=== PATIENT | female | born 1940 | race Caucasian/White ===

== ENCOUNTER 2017-03-23 15:17 | Inpatient (IN) | payer MEDICARE ==
[2017-03-23] MEDS ORDERED: Levofloxacin/Dextrose 5%-Water 750 MG in Premix Bag 1 BAG IV SCH (17:45)
[2017-03-23] MEDS: Sodium Chloride 0.9% 1,000 ML IV SCH (17:59)
[2017-03-23] MEDS ORDERED: Ondansetron 4 MG Tab.DIS PO PRN (18:01)
[2017-03-23] MEDS ORDERED: Ondansetron 4 MG/2 ML SDV IV PRN (18:01)
[2017-03-23] MEDS ORDERED: Lactated Ringers 1,000 ML IV SCH (18:15)
[2017-03-23] MEDS: Formoterol/Mometasone 100-5 MCG 8.8 GM Inhaler IH SCH (20:20)
[2017-03-23] MEDS: Metoprolol Tartrate 50 MG Tab PO SCH (20:20)
[2017-03-23] MEDS: Albuterol/Ipratropium 3.0-0.5 MG/3 ML Neb Soln NEB SCH (20:21)
[2017-03-24] MEDS: Sodium Chloride 0.9% 1,000 ML IV SCH ×2 (05:15→15:29)
[2017-03-24] MEDS: Formoterol/Mometasone 100-5 MCG 8.8 GM Inhaler IH SCH ×2 (06:38→20:01)
[2017-03-24] MEDS: Aspirin 81 MG Tab.EC PO SCH (08:40)
[2017-03-24] MEDS: Digoxin 125 MCG Tab PO SCH (08:41)
[2017-03-24] MEDS: Metoprolol Tartrate 50 MG Tab PO SCH ×2 (08:41→20:02)
[2017-03-24] MEDS: Simvastatin 10 MG Tab PO SCH (08:42)
[2017-03-24] MEDS: Albuterol/Ipratropium 3.0-0.5 MG/3 ML Neb Soln NEB SCH ×4 (09:03→20:02)
--- NOTE | 2017-03-24 12:00 | CR ---
INDICATION: Cough. CHEST: PA and lateral views of the chest 03/23/2017 were compared with 2012, and 07/31/2011, now revealing bibasilar pleuroparenchymal changes, compatible with pneumonia and pleuritis, right greater than left. Findings remain compatible with COPD, with suggestion of some osteoporosis due to demineralization. The heart remains enlarged with post median sternotomy changes and tortuous calcified aorta. IMPRESSION: 1. Bibasilar pneumonia and pleuritis, right more severe than left. 2. COPD. 3. ASHD with cardiomegaly. MTDD
[2017-03-24] MEDS ORDERED: Warfarin Sliding Scale PO SCH (12:45)
--- NOTE | 2017-03-24 12:45 | PCM.HP ---
H&P History of Present Illness - General Date of Service: 03/24/17 Admit Problem/Dx: Admission Diagnosis/Problem Admission Diagnosis/Problem Pneumonia Source of Information: Patient, Old Records History Limitations: Reports: No Limitations - History of Present Illness Initial Comments - Free Text/Narative: patient is a 77-year-old female with a complex past medical history including bioprosthetic valve replacement, underlying lung disease, history of chronic aspiration, some type of injury to her throat that resulted in her not being able to eat for an extended period of time in the past requiring parenteral feeding. She felt fine last weekend but on Friday started to feel a little under the weather. By evening she was running a fever having chills and a cough which is productive for green yellow sputum. She felt short of breath which gradually worsened throughout the week. She developed some nausea and vomiting. No diarrhea. Finally last night she decided that things were going to get better on their own and presented to the emergency department where she was found to have a right lobe infiltrate consistent with pneumonia. She was started on Levaquin 750 mg IV and admitted to the hospital for further treatment. DENIES ANY PAIN WHEN ASKED AT PRESENT TIME Pain Score (Numeric/FACES): 0 - Related Data Allergies/Adverse Reactions: Allergies Allergy/AdvReac Type Severity Reaction Status Date / Time meperidine HCl [From Demerol] Allergy Tachycardia Verified 03/23/17 18:12 nystatin Allergy Rash Verified 03/23/17 18:12 propranolol HCl Allergy Tachycardia Verified 03/23/17 18:12 [From Inderal LA] Sulfa (Sulfonamide Allergy flu like Verified 03/23/17 18:12 Antibiotics) symptoms Home Medications: Home Meds ALPRAZolam [Alprazolam] 1 mg PO TID 10/13/13 [History] Digoxin [Digox] 125 mcg PO DAILY 10/13/13 [History] Metoprolol Tartrate [Lopressor] 50 mg PO Q12HR 10/13/13 [History] Simvastatin [Simvastatin] 5 mg PO DAILY 10/13/13 [History] Albuterol Sulfate [Proair Hfa] 2 puff IH Q4HR PRN 03/23/17 [History] Aspirin 81 mg PO DAILY 03/23/17 [History] Budesonide/Formoterol [Symbicort 80-4.5 MCG] 2 puff INH BID 03/23/17 [History] Potassium Chloride 8 meq PO DAILY 03/23/17 [History] Warfarin Sodium [Jantoven] 5 mg PO SUTUTHSA 03/23/17 [History] Warfarin [Coumadin] 2.5 mg PO MOWEFR 03/23/17 [History] Past Medical History HEENT History: Reports: Cataract Cardiovascular History: Reports: Arrhythmia, Blood Clots/VTE/DVT, High Cholesterol, Hypertension Respiratory History: Reports: Asthma, COPD [employer] History: Reports: Neurological History: Reports: Other (See Below) Other Neuro History: tremors Psychiatric History: Reports: Anxiety - Past Surgical History HEENT Surgical History: Reports: Cataract Surgery, Other (See Below) Other HEENT Surgeries/Procedures: surgery right ear Cardiovascular Surgical History: Reports: Coronary Artery Bypass GI Surgical History: Reports: Appendectomy, Cholecystectomy, Other (See Below) Other GI Surgeries/Procedures: Had feeding tube for 1 1/2 years after bypass surgery in 2012 due to inability to swallow Female Surgical History: Reports: Hysterectomy Social & Family History - Family History Family Medical History: Noncontributory - Tobacco Use Smoking Status *Q: Never Smoker Second Hand Smoke Exposure: No - Caffeine Use Caffeine Use: Reports: None - Alcohol Use Days Per Week of Alcohol Use: 0 - Recreational Drug Use Recreational Drug Use: No H&P Review of Systems - Review of Systems: Review Of Systems: See Below General: Reports: Fever, Chills, Malaise, Weakness, Fatigue, Decreased Appetite HEENT: Reports: No Symptoms Pulmonary: Reports: Shortness of Breath, Wheezing, Cough, Sputum (yellow green) Cardiovascular: Reports: Dyspnea on Exertion Gastrointestinal: Reports: Anorexia, Nausea, Vomiting Musculoskeletal: Reports: Other (body aches) Skin: Reports: No Symptoms Psychiatric: Reports: No Symptoms Neurological: Reports: No Symptoms Hematologic/Lymphatic: Reports: No Symptoms Immunologic: Reports: No Symptoms Exam - Exam Exam: See Below - Vital Signs Vital Signs: Last Vital Signs Temp 36.8 C 03/24/17 08:00 Pulse 65 03/24/17 12:30 Resp 24 H 03/24/17 08:00 BP 134/59 L 03/24/17 08:41 Pulse Ox 91 L 03/24/17 12:28 Weight: 71.577 kg - Exam General: Alert, Oriented, Cooperative HEENT: PERRLA, Pupils Equal, Pupils Reactive Neck: Supple Lungs: Decreased Breath Sounds, Rales, Rhonchi, Wheezing Cardiovascular: Regular Rate, Regular Rhythm, Normal S1, Normal S2 GI/Abdominal Exam: Normal Bowel Sounds, Soft, Non-Tender, No Distention Back Exam: Normal Inspection Extremities: No Pedal Edema Neuro Extensive - Mental Status: Alert, Oriented x3 Psychiatric: Alert - Patient Data Lab Results Last 24 hrs: Laboratory Results - last 24 hr 03/23/17 03/24/17 Range/Units 20:31 06:37 POC Glucose 112 96 (80-116) mg/dL Result Diagrams: 03/23/17 17:25 03/23/17 17:25 *Q Meaningful Use (ADM) - VTE *Q VTE Criteria *Q: - Stroke *Q Stroke Criteria *Q: - AMI *Q AMI Criteria *Q: - Problem List (1) CAP (community acquired pneumonia) SNOMED Code(s): 740275931 ICD Code: J18.9 - PNEUMONIA, UNSPECIFIED ORGANISM Status: Acute Current Visit: Yes Problem Details: patient with history of aspiration is at higher risk for aspiration organisms. I agree with the choice of Levaquin at pseudomonal doses given her underlying lung disease. I think this is also a good choice for aspiration coverage. Will add prednisone 40 mg daily. Although it does increase risk of tendinitis and tendon rupture, I think with her history of asthma and COPD she should also be on a steroid. Qualifiers: Laterality: right Lung location: middle lobe of lung Qualified Code(s): J18.1 - Lobar pneumonia, unspecified organism (2) Chronic atrial fibrillation SNOMED Code(s): 074429286 ICD Code: I48.2 - CHRONIC ATRIAL FIBRILLATION Status: Chronic Current Visit: Yes Problem Details: patient currently rate controlled and anticoagulated. Continue current medications. Pharmacy to dose warfarin. (3) Hypertension SNOMED Code(s): 81068781 ICD Code: I10 - ESSENTIAL (PRIMARY) HYPERTENSION Status: Chronic Current Visit: Yes Problem Details: currently well-controlled. Continue to monitor. Continue home meds. (4) History of mitral valve replacement with bioprosthetic valve SNOMED Code(s): 999039337, 2130538819825 ICD Code: Z95.3 - PRESENCE OF XENOGENIC HEART VALVE Status: Acute Current Visit: Yes (5) COPD (chronic obstructive pulmonary disease) SNOMED Code(s): 62910341 ICD Code: J44.9 - CHRONIC OBSTRUCTIVE PULMONARY DISEASE, UNSPECIFIED Status : Acute Current Visit: Yes Problem Details: see above. Prednisone daily. Nebs. (6) Asthma SNOMED Code(s): 444504969 ICD Code: J45.909 - UNSPECIFIED ASTHMA, UNCOMPLICATED Status: Acute Current Visit: Yes Problem Details: see above. 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 Pharmacy to follow. If not therapeutic by tomorrow we can bridge with Lovenox because of higher risk for DVT. Problem List Initiated/Reviewed/Updated: Yes Orders Last 24hrs: Active Orders 24 hr Category Date Time Status CULTURE SPUTUM + SMEAR [RM] Routine Lab 03/23/17 16:50 Results Albuterol [Ventolin HFA] Med 03/23/17 18:08 Active 0 gm INH Q4H PRN Aspirin [Halfprin] Med 03/24/17 09:00 Active 81 mg PO DAILY Digoxin [Lanoxin] Med 03/24/17 09:00 Active 125 mcg PO DAILY Metoprolol Tartrate [Lopressor] Med 03/23/17 21:00 Active 50 mg PO BID Mometasone/Formoterol [Dulera 100-5 MCG] Med 03/24/17 08:01 Active 2 puff IH BIDRT Potassium Chloride [Klor-Con 8] Med 03/24/17 09:00 Active 8 meq PO DAILY Simvastatin [Zocor] Med 03/24/17 09:00 Active 5 mg PO DAILY Warfarin Sliding Scale [Coumadin Sliding Scale] Med 03/24/17 12:45 Pending See Dose Instructions PO ASDIRECTED Warfarin [Coumadin] Med 03/24/17 16:00 Active 5 mg PO 1600 Medication Orders Acetaminophen (Tylenol) 650 mg PO Q4H PRN PRN Reason: Pain (Mild 1-3)/fever Albuterol (Ventolin Hfa) 0 gm INH Q4H PRN PRN Reason: Wheezing Albuterol/Ipratropium (Duoneb 3.0-0.5 Mg/3 Ml) 3 ml NEB QIDRT [facility] Last Admin: 03/24/17 12:27 Dose: 3 ml Admin: 03/24/17 09:03 Dose: 3 ml Admin: 03/23/17 20:21 Dose: 3 ml Aspirin (Halfprin) 81 mg PO DAILY [facility] Last Admin: 03/24/17 08:40 Dose: 81 mg Digoxin (Lanoxin) 125 mcg PO DAILY [facility] Last Admin: 03/24/17 08:41 Dose: 125 mcg Levofloxacin/Dextrose 750 mg/ (Premix) 150 mls @ 100 mls/hr IV Q48H [facility] Last Admin: 03/23/17 18:03 Dose: 100 mls/hr Sodium Chloride (Normal Saline) 1,000 mls @ 100 mls/hr IV ASDIRECTED [facility] Last Admin: 03/24/17 05:15 Dose: 100 mls/hr Infusion: 03/24/17 03:59 Dose: 100 mls/hr Admin: 03/23/17 17:59 Dose: 100 mls/hr Metoprolol Tartrate (Lopressor) 50 mg PO BID [facility] Last Admin: 03/24/17 08:41 Dose: 50 mg Admin: 03/23/17 20:20 Dose: 50 mg Mometasone Furoate/Formoterol Fumar (Dulera 100-5 Mcg) 2 puff IH BIDRT [facility] Ondansetron HCl (Zofran Odt) 4 mg PO Q4H PRN PRN Reason: nausea, able to take PO Ondansetron HCl (Zofran) 4 mg IV Q4H PRN PRN Reason: Nausea/Vomiting Potassium Chloride (Klor-Con 8) 8 meq PO DAILY [facility] Senna/Docusate Sodium (Senna Plus) 1 tab PO BID PRN PRN Reason: Constipation Simvastatin (Zocor) 5 mg PO DAILY [facility] Last Admin: 03/24/17 08:42 Dose: 5 mg Sodium Chloride (Saline Flush) 10 ml FLUSH ASDIRECTED PRN PRN Reason: Keep Vein Open Warfarin Sodium (Coumadin) 5 mg PO 1600 [facility] Stop: 03/24/17 16:01 Warfarin Sodium (Coumadin Sliding Scale) 0 each PO ASDIRECTED [facility] Assessment/Plan Comment:: Discussed CODE STATUS with the patient and the patient is a full code. She does have a living will and her son would be her decision maker in case she was unable to communicate.
--- NOTE | 2017-03-24 14:03 | ER ---
DATE SEEN: 03/23/2017 TIME SEEN: The patient was seen at 1730 hours. HISTORY OF PRESENT ILLNESS: There was a concern about pneumonia. She is 10/10 "sick". She has had decreased activity. She is short of breath and has been coughing. Mild dyspnea on exertion. She notes at 20 feet she has dyspnea. No chest pain or irregular heartbeat. No abdominal discomfort, nausea, vomiting, diarrhea, constipation, or change in bowels. Has had a yellow productive cough for the last 4 days. She is not dizzy and not lightheaded, and has not fallen down. She lives at home. She is status post CABG. PAST MEDICAL HISTORY: COPD, status post CABG, three-vessel disease, asthma, DVT history, mitral valvuloplasty, cholecystectomy, MARY-BSO, cataracts removed. REVIEW OF SYSTEMS: Negative, except for noted above. She has some urinary incontinence. Muscle strength is good. She feels weaker than usual. No history of falls. No headaches. No neck stiffness. No compromise in vision. She does wear glasses. No back pain, but she has mild muscle/joint aches. PHYSICAL EXAMINATION: VITAL SIGNS: Blood pressure 120/54, heart rate 93, respirations 16, oxygen saturation 98% on room air, and temperature is 37.1 degrees centigrade. HEENT: PERRLA intact. Pharynx without abnormality. NECK: No thyromegaly or masses. No cervical adenopathy. HEART: S1, S2. There is no murmur. Sternotomy incision noted. It is healed and nontender. LUNGS: There are rales at the bases. Bilateral posteriorly and anteriorly. ABDOMEN: Soft. No guarding. No abdominal discomfort. EXTREMITIES: Nontender. No edema noted in lower extremities. Deep tendon reflexes hypoactive, but present in upper and lower extremities. NEUROLOGIC: Cranial nerves 2 through 12 intact. Oriented. Slight decreased hearing. Thought process is appropriate. LABORATORY FINDINGS: White count 11,200, PMNs 72, lymphocytes 10, monos 14, hemoglobin 12.9, and platelets 277,000. Sodium low at 129, chloride low at 93, potassium low normal at 3.5, CO2 of 26. BUN creatinine ratio 26, latter suggesting dehydration. Calcium slightly low at 8.1, but no abnormality of albumin to result in a corrected calcium. INR is 1.68 and PT is 17.2. Normal PT is up to 8.7-11.1. EKG was not performed. IMAGING: Chest x-ray, infiltrate suggested. Also, she had bibasilar findings. ASSESSMENT: 1. Pneumonia. 2. Etiologies for pneumonia indeterminate, does not appear she has an infiltrate. It is possible it could be atelectasis. 3. Hyponatremia and hypochloremia. The patient is on a salt restricted diet, very careful intake of salt. She also is taking potassium supplements, perhaps, not enough, 8 mEq daily. She is on anticoagulants for previous history of DVTs. PLAN: 1. Treat infection, pneumonia with Levaquin 750 mg every other day for a total of 5 doses. 2. She has significant chronic obstructive lung disease. She utilizes DuoNebs and/or albuterol nebs. 3. Admission. 4. Continue with anticoagulation medicine - clopidogrel - for her three-vessel CABG surgery. 5. The hyponatremia and hypochloremia are somewhat bothersome. The patient can add salt to her diet. She was somewhat dry, had received 1000 mL of lactated Ringer's. She did not have any signs of congestive heart failure when she received this. She did not get better after DuoNeb in ED and, because of COPD, was admitted. /[id number] ADELA/ROSANA SPENCER
[2017-03-24] MEDS: Potassium Chloride 8 MEQ Tab.ER PO SCH (14:23)
[2017-03-24] MEDS: Acetaminophen 325 MG Tab PO PRN (15:03)
[2017-03-24] MEDS ORDERED: Warfarin 5 MG Tab PO SCH ×2 (16:00)
[2017-03-24] MEDS: predniSONE 20 MG Tab PO SCH (16:10)
[2017-03-24] MEDS ORDERED: Warfarin 2.5 MG Tab PO SCH (18:08)
[2017-03-25] MEDS: Sodium Chloride 0.9% 1,000 ML IV SCH ×2 (01:10→20:10)
[2017-03-25] MEDS: Albuterol 8 GM Inhaler INH PRN (03:15)
[2017-03-25] MEDS: Albuterol/Ipratropium 3.0-0.5 MG/3 ML Neb Soln NEB SCH ×4 (07:08→20:16)
[2017-03-25] MEDS: predniSONE 20 MG Tab PO SCH (08:29)
[2017-03-25] MEDS: Potassium Chloride 8 MEQ Tab.ER PO SCH (08:30)
[2017-03-25] MEDS: Aspirin 81 MG Tab.EC PO SCH (08:30)
[2017-03-25] MEDS: Digoxin 125 MCG Tab PO SCH (08:30)
[2017-03-25] MEDS: Simvastatin 10 MG Tab PO SCH (08:30)
[2017-03-25] MEDS: Metoprolol Tartrate 50 MG Tab PO SCH ×2 (08:31→20:20)
[2017-03-25] MEDS ORDERED: Levofloxacin 500 MG Tab PO SCH (09:00)
[2017-03-25] MEDS: Formoterol/Mometasone 100-5 MCG 8.8 GM Inhaler IH SCH ×2 (11:02→20:17)
[2017-03-25] MEDS: Saccharomyces Boulardii (Probiotic) 250 MG Cap PO SCH ×2 (11:11→20:18)
--- NOTE | 2017-03-25 12:37 | PCM.PN ---
- General Info Date of Service: 03/25/17 Subjective Update: Patient is a 77-year-old female currently on hospital day #2 for community- acquired pneumonia. Initial sputum has grown out gram-negative rods. Patient is on Levaquin which covers pseudomonas and add pseudomonal dosing. Liver enzymes were up just slightly today. She had received a dose of prednisone last night and again this morning but tells me in the past she's had problems with prednisone and isn't sure if it was related to her liver. She was wondering if it would be all right to stop that. She continues on room air and vital signs are stable. She's had no chest pain, continues to be short of breath with activity. She mentions a groin rash today to me that she's had for few weeks. His red and itchy in the left groin. She's wondering if I can take a look at that today. Functional Status: Reports: Pain Controlled, Tolerating Diet, Ambulating, Urinating - Patient Data Vitals - Most Recent: Last Vital Signs Temp 36.5 C 03/25/17 07:40 Pulse 94 03/25/17 09:29 Resp 18 03/25/17 07:40 BP 156/83 H 03/25/17 08:31 Pulse Ox 94 L 03/25/17 09:29 Weight - Most Recent: 71.577 kg I&O - Last 24 Hours: Intake & Output 03/24/17 03/25/17 03/25/17 22:59 06:59 14:59 Intake Total 789 669 Balance 789 669 Lab Results Last 24 Hours: Laboratory Results - last 24 hr 03/24/17 03/24/17 03/25/17 Range/Units 14:22 17:26 06:30 WBC (4.5-12.0) X10-3/uL RBC (3.23-5.20) x10(6)uL Hgb (11.5-15.5) g/dL Hct (30.0-51.3) % MCV (80-96) fL MCH (27.7-33.6) pg MCHC (32.2-35.4) g/dL RDW (11.5-15.5) % Plt Count (125-369) X10(3)uL MPV (7.4-10.4) fL Neut % (Auto) (46-82) % Lymph % (Auto) (13-37) % Jessamine % (Auto) (4-12) % Eos % (Auto) (1.0-5.0) % Baso % (Auto) (0-2) % Neut # (Auto) (1.6-8.3) # Lymph # (Auto) (0.6-5.0) # Jessamine # (Auto) (0.0-1.3) # Eos # (Auto) (0.0-0.8) # Baso # (Auto) (0.0-0.2) # PT (8.7-11.1) INR (0.89-1.13) Sodium 139 D (135-145) mmol/L Potassium 3.6 (3.5-5.3) mmol/L Chloride 107 D (100-110) mmol/L Carbon Dioxide 23 (23-29) mmol/L BUN 15 (8-23) mg/dL Creatinine 0.7 (0.6-1.3) mg/dL Est Cr Clr Drug Dosing 59.96 mL/min Estimated GFR (MDRD) > 60 (>60) BUN/Creatinine Ratio 21.4 H (9-20) Glucose 130 H (80-116) mg/dL POC Glucose 100 107 (80-116) mg/dL Calcium 7.9 L (8.6-10.2) mg/dL Total Bilirubin 0.3 (0.1-1.3) mg/dL AST 49 H D (5-27) IU/L ALT 50 H D (14-26) IU/L Alkaline Phosphatase 99 (56-112) IU/L Total Protein 6.4 (6.0-8.0) g/dL Albumin 2.3 L (3.2-4.6) g/dL Globulin 4.1 g/dL Albumin/Globulin Ratio 0.6 03/25/17 03/25/17 Range/Units 06:30 09:00 WBC 6.7 (4.5-12.0) X10-3/uL RBC 3.68 (3.23-5.20) x10(6)uL Hgb 10.6 L (11.5-15.5) g/dL Hct 31.7 (30.0-51.3) % MCV 86.2 (80-96) fL MCH 28.8 (27.7-33.6) pg MCHC 33.4 (32.2-35.4) g/dL RDW 14.2 (11.5-15.5) % Plt Count 237 (125-369) X10(3)uL MPV 8.5 (7.4-10.4) fL Neut % (Auto) 76.6 (46-82) % Lymph % (Auto) 11.9 L (13-37) % Jessamine % (Auto) 11.3 (4-12) % Eos % (Auto) 0 L (1.0-5.0) % Baso % (Auto) 0 (0-2) % Neut # (Auto) 5.1 (1.6-8.3) # Lymph # (Auto) 0.8 (0.6-5.0) # Jessamine # (Auto) 0.8 (0.0-1.3) # Eos # (Auto) 0.0 (0.0-0.8) # Baso # (Auto) 0.0 (0.0-0.2) # PT 27.2 H (8.7-11.1) INR 2.64 H (0.89-1.13) Sodium (135-145) mmol/L Potassium (3.5-5.3) mmol/L Chloride (100-110) mmol/L Carbon Dioxide (23-29) mmol/L BUN (8-23) mg/dL Creatinine (0.6-1.3) mg/dL Est Cr Clr Drug Dosing mL/min Estimated GFR (MDRD) (>60) BUN/Creatinine Ratio (9-20) Glucose (80-116) mg/dL POC Glucose (80-116) mg/dL Calcium (8.6-10.2) mg/dL Total Bilirubin (0.1-1.3) mg/dL AST (5-27) IU/L ALT (14-26) IU/L Alkaline Phosphatase (56-112) IU/L Total Protein (6.0-8.0) g/dL Albumin (3.2-4.6) g/dL Globulin g/dL Albumin/Globulin Ratio Med Orders - Current: Current Medications Acetaminophen (Tylenol) 650 mg PO Q4H PRN PRN Reason: Pain (Mild 1-3)/fever Last Admin: 03/24/17 15:03 Dose: 650 mg Albuterol (Ventolin Hfa) 0 gm INH Q4H PRN PRN Reason: Wheezing Last Admin: 03/25/17 03:15 Dose: 2 puff Albuterol/Ipratropium (Duoneb 3.0-0.5 Mg/3 Ml) 3 ml NEB QIDRT [facility] Last Admin: 03/25/17 11:06 Dose: 3 ml Aspirin (Halfprin) 81 mg PO DAILY [facility] Last Admin: 03/25/17 08:30 Dose: 81 mg Digoxin (Lanoxin) 125 mcg PO DAILY [facility] Last Admin: 03/25/17 08:30 Dose: 125 mcg Sodium Chloride (Normal Saline) 1,000 mls @ 100 mls/hr IV ASDIRECTED [facility] Last Admin: 03/25/17 01:10 Dose: 100 mls/hr Levofloxacin 500 mg/ (Levofloxacin 250 mg) 750 mg PO Q24H [facility] Last Admin: 03/25/17 09:44 Dose: 750 mg Metoprolol Tartrate (Lopressor) 50 mg PO BID [facility] Last Admin: 03/25/17 08:31 Dose: 50 mg Mometasone Furoate/Formoterol Fumar (Dulera 100-5 Mcg) 2 puff IH BIDRT [facility] Last Admin: 03/25/17 11:02 Dose: 2 puff Ondansetron HCl (Zofran Odt) 4 mg PO Q4H PRN PRN Reason: nausea, able to take PO Ondansetron HCl (Zofran) 4 mg IV Q4H PRN PRN Reason: Nausea/Vomiting Potassium Chloride (Klor-Con 8) 8 meq PO DAILY [facility] Last Admin: 03/25/17 08:30 Dose: 8 meq Prednisone (Prednisone) 40 mg PO WITHBREAKFAST [facility] Last Admin: 03/25/17 08:29 Dose: 40 mg Saccharomyces Boulardii (Florastor) 250 mg PO BID [facility] Last Admin: 03/25/17 11:11 Dose: 250 mg Senna/Docusate Sodium (Senna Plus) 1 tab PO BID PRN PRN Reason: Constipation Simvastatin (Zocor) 5 mg PO DAILY [facility] Last Admin: 03/25/17 08:30 Dose: 5 mg Sodium Chloride (Saline Flush) 10 ml FLUSH ASDIRECTED PRN PRN Reason: Keep Vein Open Warfarin Sodium (Coumadin Sliding Scale) 0 each PO ASDIRECTED [facility] Warfarin Sodium (Coumadin) 2.5 mg PO 1600 [facility] Stop: 03/25/17 16:01 Discontinued Medications Levofloxacin/Dextrose 750 mg/ (Premix) 150 mls @ 100 mls/hr IV Q48H [facility] Last Admin: 03/23/17 18:03 Dose: 100 mls/hr Lactated Ringer's (Ringers, Lactated) 1,000 mls @ 125 mls/hr IV .BOLUS [facility] Stop: 03/24/17 02:00 Mometasone Furoate/Formoterol Fumar (Dulera 100-5 Mcg) 2 puff IH BIDRT [facility] Last Admin: 03/24/17 06:38 Dose: 2 puff Warfarin Sodium (Coumadin) 5 mg PO DAILY@1600 [facility] Warfarin Sodium (Coumadin) 5 mg PO 1600 [facility] Stop: 03/24/17 16:01 Last Admin: 03/24/17 16:16 Dose: 5 mg - Exam General: Alert, Oriented, Cooperative, No Acute Distress HEENT: Pupils Equal, Pupils Reactive Neck: Supple Lungs: Clear to Auscultation (much clearer than yesterday, no wheezing or rhonchi, no rales.), Normal Respiratory Effort Cardiovascular: Regular Rate, Regular Rhythm, No Murmurs (Female) Exam: Other (Slightly Erythematous in the left groin fold.) Back Exam: Normal Inspection Extremities: Normal Inspection, Pedal Edema (Trace pedal edema) Skin: Warm, Dry, Intact Psy/Mental Status: Alert, Normal Affect, Normal Mood - Problem List & Annotations (1) CAP (community acquired pneumonia) SNOMED Code(s): 043198547 Code(s): J18.9 - PNEUMONIA, UNSPECIFIED ORGANISM Status: Acute Current Visit: Yes Qualifiers: Laterality: right Lung location: middle lobe of lung Qualified Code(s): J18.1 - Lobar pneumonia, unspecified organism Annotation/Comment:: Has grown gram negative rods, concerning for pseudomonas which is covered by levaquin. Per patient request will stop prednisone as she is on room air. Will need to stay in hospital until we get culture ID and sensitivity on the sputum and rule out bacteremia. Suggesting haemophilus which is covered by levaquin as well. Will not de-escalate until definite ID. (2) Chronic atrial fibrillation SNOMED Code(s): 351801569 Code(s): I48.2 - CHRONIC ATRIAL FIBRILLATION Status: Chronic Current Visit: Yes Annotation/Comment:: patient currently rate controlled and anticoagulated. Continue current medications. Pharmacy to dose warfarin. (3) Hypertension SNOMED Code(s): 45306969 Code(s): I10 - ESSENTIAL (PRIMARY) HYPERTENSION Status: Chronic Current Visit: Yes Annotation/Comment:: currently borderline control. Continue to monitor. Continue home meds. (4) History of mitral valve replacement with bioprosthetic valve SNOMED Code(s): 601316507, 3433759497617 Code(s): Z95.3 - PRESENCE OF XENOGENIC HEART VALVE Status: Acute Current Visit: Yes (5) COPD (chronic obstructive pulmonary disease) SNOMED Code(s): 58439866 Code(s): J44.9 - CHRONIC OBSTRUCTIVE PULMONARY DISEASE, UNSPECIFIED Status : Acute Current Visit: Yes Annotation/Comment:: see above. Nebs. (6) Asthma SNOMED Code(s): 350501898 Code(s): J45.909 - UNSPECIFIED ASTHMA, UNCOMPLICATED Status: Acute Current Visit: Yes Annotation/Comment:: see above. 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 Pharmacy to follow. Therapeutic today. (8) Candidiasis SNOMED Code(s): 79451805 Code(s): B37.9 - CANDIDIASIS, UNSPECIFIED Status: Acute Current Visit: Yes Annotation/Comment:: Of groin fold. Use antifungal topically until gone. - Problem List Review Problem List Initiated/Reviewed/Updated: Yes - My Orders Last 24 Hours: My Active Orders 03/24/17 12:45 Warfarin Sliding Scale [Coumadin Sliding Scale] See Dose Instructions PO ASDIRECTED 03/24/17 15:15 predniSONE 40 mg PO WITHBREAKFAST 03/25/17 08:45 Levofloxacin [Levaquin] 750 mg PO Q24H 03/25/17 10:30 Saccharomyces Boulardii [Florastor] 250 mg PO BID 03/25/17 16:00 Warfarin [Coumadin] 2.5 mg PO 1600 03/26/17 05:11 COMPREHENSIVE METABOLIC PN,CMP [CHEM] AM HEMOGLOBIN [HEME] AM 03/26/17 08:44 INR,PT,PROTHROMBIN TIME [COAG] DAILY 03/27/17 08:44 INR,PT,PROTHROMBIN TIME [COAG] DAILY 03/28/17 08:44 INR,PT,PROTHROMBIN TIME [COAG] DAILY 03/29/17 08:44 INR,PT,PROTHROMBIN TIME [COAG] DAILY 03/30/17 08:44 INR,PT,PROTHROMBIN TIME [COAG] DAILY 03/31/17 08:44 INR,PT,PROTHROMBIN TIME [COAG] DAILY - Plan Plan:: Discussed CODE STATUS with the patient and the patient is a full code. She does have a living will and her son would be her decision maker in case she was unable to communicate.
[2017-03-25] MEDS ORDERED: Warfarin 2.5 MG Tab PO SCH (16:00)
[2017-03-25] MEDS: Sodium Chloride 0.9% 10 ML Syringe FLUSH PRN (20:00)
[2017-03-25] MEDS: Clotrimazole 1% Crm 15 GM Tube TOP SCH (20:24)
[2017-03-25] MEDS ORDERED: ALPRAZolam 1 MG Tab PO SCH (21:15)
[2017-03-26] MEDS: Albuterol 8 GM Inhaler INH PRN (02:10)
[2017-03-26] MEDS: Acetaminophen 325 MG Tab PO PRN (02:13)
[2017-03-26] MEDS: Sodium Chloride 0.9% 1,000 ML IV SCH (06:38)
[2017-03-26] MEDS: Formoterol/Mometasone 100-5 MCG 8.8 GM Inhaler IH SCH ×2 (06:39→20:57)
[2017-03-26] MEDS: Albuterol/Ipratropium 3.0-0.5 MG/3 ML Neb Soln NEB SCH ×2 (07:05→10:40)
[2017-03-26] MEDS ORDERED: ALPRAZolam 1 MG Tab PO SCH (09:00)
[2017-03-26] MEDS: Clotrimazole 1% Crm 15 GM Tube TOP SCH ×2 (09:04→20:56)
[2017-03-26] MEDS: Saccharomyces Boulardii (Probiotic) 250 MG Cap PO SCH ×2 (09:04→20:58)
[2017-03-26] MEDS: Potassium Chloride 8 MEQ Tab.ER PO SCH (09:05)
[2017-03-26] MEDS: Aspirin 81 MG Tab.EC PO SCH (09:05)
[2017-03-26] MEDS: Digoxin 125 MCG Tab PO SCH (09:05)
[2017-03-26] MEDS: Metoprolol Tartrate 50 MG Tab PO SCH (09:06)
[2017-03-26] MEDS: Simvastatin 10 MG Tab PO SCH (09:06)
[2017-03-26] MEDS ORDERED: Metoprolol Tartrate 5 MG/5 ML SDV IVPUSH ONE ×2 (12:13→12:45)
[2017-03-26] MEDS ORDERED: LORazepam 2 MG/ML MDV IVPUSH ONE (12:26)
[2017-03-26] MEDS ORDERED: Nitroglycerin/D5W 25 MG/250 ML BOTTLE IV SCH (12:45)
[2017-03-26] MEDS ORDERED: Aspirin 81 MG Tab.Chew PO ONE (12:45)
[2017-03-26] MEDS: Sodium Chloride 0.9% 10 ML Syringe FLUSH PRN ×5 (13:01→21:22)
[2017-03-26] MEDS: LORazepam 2 MG/ML MDV IVPUSH SCH ×2 (14:05→21:29)
--- NOTE | 2017-03-26 14:13 | CR ---
INDICATION: Chest pain, shortness of breath. CHEST: An AP upright portable view of the chest 03/26/2017 was compared with and 10/30/2012, again revealing evidence of median sternotomy. The heart is enlarged and possibly increased in size, compared with the recent examination which, however, was a PA study. The aorta is tortuous and calcified. Upper lung field pulmonary vasculature is prominent and interstitial markings are also prominent, compatible with CHF with interstitial lung edema. The bilateral pleural effusions and parenchymal changes at the lung bases may be at least partly on that basis. However, pneumonia and pleuritis, more severe on the right, is also a possibility. This should be correlated clinically. Overlying EKG leads are noted. IMPRESSION: 1. ASHD, cardiomegaly, post median sternotomy with CHF and interstitial lung edema and possibly bilateral pleural effusions. 2. Pleuroparenchymal changes at both lung bases make it difficult to exclude pneumonia and pleuritis, more prominent on the right than left. MTDD
--- NOTE | 2017-03-26 18:32 | PCM.PN ---
- General Info Date of Service: 03/26/17 Subjective Update: Patient is a 77-year-old female currently on hospital day #4 for community acquired pneumonia with sputum positive for gram-negative rods. Culture this evening came back positive for Haemophilus influenza with sensitivities pending. Patient is currently on Levaquin 750 mg by mouth every 24 hours. Patient had an eventful day. She normally is on Xanax at home 3 times a day and this had not been restarted when she was admitted to the hospital. Last night she went through some benzodiazepine withdrawal and was given her Xanax. She got it again this morning but was still very anxious, tremulous, and her blood pressure and pulse were quite high. About noon the patient's blood pressure was in the 180s to 190s systolic and on exam her heart rate was in the 1 teens to 120s. She was extremely anxious. On further questioning she acknowledged that she had had an episode of chest pressure in the morning and the decision was made to treat this as a hypertensive urgency likely secondary to benzodiazepine withdrawal and transfer her to the ICU. The patient was given a 0.5 mg dose of IV Ativan, 5 mg IV metoprolol 2, and started on a nitroglycerin drip. Initial EKG showed atrial fibrillation with rapid ventricular response and T-wave inversion in leads 1 and 2, 3, aVL and aVF. She also had ST depression in V2 through V5 suggestive of ischemia. With metoprolol and nitroglycerin all these abnormalities resolved. The patient was then asymptomatic. Initial troponin was 0.01, follow-up troponin was 0.03. Discussed at length with the patient and her son that it's likely an increase in troponin at this point would represent demand ischemia and would not mandate further evaluation with cardiac catheterization. The patient currently is resting comfortably. Heart rate is in the high 90s to low 100 range. Blood pressure is in the 130s to 140s on 10 g of nitroglycerin IV. Patient has no chest pain, no shortness of breath, no nausea, no vomiting. Of note she did have 2 episodes of vomiting during her peak blood pressures and also became hypoxic into the high 80s and needed supplemental oxygen. Functional Status: Reports: Pain Controlled, Tolerating Diet - Patient Data Vitals - Most Recent: Last Vital Signs Temp 36.4 C 03/26/17 16:00 Pulse 103 H 03/26/17 16:00 Resp 28 H 03/26/17 16:00 BP 122/93 H 03/26/17 16:00 Pulse Ox 92 L 03/26/17 16:00 Weight - Most Recent: 71.577 kg I&O - Last 24 Hours: Intake & Output 03/26/17 03/26/17 03/26/17 06:59 14:59 22:59 Intake Total 847 30 Output Total 100 Balance 847 30 -100 Lab Results Last 24 Hours: Laboratory Results - last 24 hr 03/26/17 03/26/17 03/26/17 Range/Units 06:15 06:15 06:15 WBC (4.5-12.0) X10-3/uL RBC (3.23-5.20) x10(6)uL Hgb 10.8 L (11.5-15.5) g/dL Hct (30.0-51.3) % MCV (80-96) fL MCH (27.7-33.6) pg MCHC (32.2-35.4) g/dL RDW (11.5-15.5) % Plt Count (125-369) X10(3)uL PT 37.2 H* (8.7-11.1) INR 3.59 H (0.89-1.13) Sodium 141 (135-145) mmol/L Potassium 3.3 L (3.5-5.3) mmol/L Chloride 107 (100-110) mmol/L Carbon Dioxide 24 (23-29) mmol/L BUN 16 (8-23) mg/dL Creatinine 0.8 (0.6-1.3) mg/dL Est Cr Clr Drug Dosing 52.47 mL/min Estimated GFR (MDRD) > 60 (>60) BUN/Creatinine Ratio 20.0 (9-20) Glucose 115 (80-116) mg/dL Calcium 8.3 L (8.6-10.2) mg/dL Total Bilirubin 0.3 (0.1-1.3) mg/dL AST 50 H (5-27) IU/L ALT 58 H D (14-26) IU/L Alkaline Phosphatase 95 (56-112) IU/L Troponin I (0.02-0.06) NG/ML Total Protein 6.4 (6.0-8.0) g/dL Albumin 2.4 L (3.2-4.6) g/dL Globulin 4.0 g/dL Albumin/Globulin Ratio 0.6 03/26/17 03/26/17 03/26/17 Range/Units 12:35 12:35 12:35 WBC 14.4 H (4.5-12.0) X10-3/uL RBC 4.36 (3.23-5.20) x10(6)uL Hgb 12.1 (11.5-15.5) g/dL Hct 37.4 (30.0-51.3) % MCV 86.0 (80-96) fL MCH 27.8 (27.7-33.6) pg MCHC 32.3 (32.2-35.4) g/dL RDW 14.4 (11.5-15.5) % Plt Count 355 (125-369) X10(3)uL PT (8.7-11.1) INR (0.89-1.13) Sodium 140 (135-145) mmol/L Potassium 3.3 L (3.5-5.3) mmol/L Chloride 108 (100-110) mmol/L Carbon Dioxide 19 L (23-29) mmol/L BUN 15 (8-23) mg/dL Creatinine 0.8 (0.6-1.3) mg/dL Est Cr Clr Drug Dosing 52.47 mL/min Estimated GFR (MDRD) > 60 (>60) BUN/Creatinine Ratio 18.8 (9-20) Glucose 102 (80-116) mg/dL Calcium 8.3 L (8.6-10.2) mg/dL Total Bilirubin 0.4 (0.1-1.3) mg/dL AST 58 H D (5-27) IU/L ALT 64 H D (14-26) IU/L Alkaline Phosphatase 102 (56-112) IU/L Troponin I 0.01 L (0.02-0.06) NG/ML Total Protein 7.0 (6.0-8.0) g/dL Albumin 2.5 L (3.2-4.6) g/dL Globulin 4.5 g/dL Albumin/Globulin Ratio 0.6 03/26/17 Range/Units 16:35 WBC (4.5-12.0) X10-3/uL RBC (3.23-5.20) x10(6)uL Hgb (11.5-15.5) g/dL Hct (30.0-51.3) % MCV (80-96) fL MCH (27.7-33.6) pg MCHC (32.2-35.4) g/dL RDW (11.5-15.5) % Plt Count (125-369) X10(3)uL PT (8.7-11.1) INR (0.89-1.13) Sodium (135-145) mmol/L Potassium (3.5-5.3) mmol/L Chloride (100-110) mmol/L Carbon Dioxide (23-29) mmol/L BUN (8-23) mg/dL Creatinine (0.6-1.3) mg/dL Est Cr Clr Drug Dosing mL/min Estimated GFR (MDRD) (>60) BUN/Creatinine Ratio (9-20) Glucose (80-116) mg/dL Calcium (8.6-10.2) mg/dL Total Bilirubin (0.1-1.3) mg/dL AST (5-27) IU/L ALT (14-26) IU/L Alkaline Phosphatase (56-112) IU/L Troponin I 0.03 (0.02-0.06) NG/ML Total Protein (6.0-8.0) g/dL Albumin (3.2-4.6) g/dL Globulin g/dL Albumin/Globulin Ratio Med Orders - Current: Current Medications Acetaminophen (Tylenol) 650 mg PO Q4H PRN PRN Reason: Pain (Mild 1-3)/fever Last Admin: 03/26/17 02:13 Dose: 650 mg Albuterol (Ventolin Hfa) 0 gm INH Q4H PRN PRN Reason: Wheezing Last Admin: 03/26/17 02:10 Dose: 2 puff Aspirin (Halfprin) 81 mg PO DAILY [facility] Last Admin: 03/26/17 09:05 Dose: 81 mg Clotrimazole (Clotrimazole 1%) 0 gm TOP BID [facility] Last Admin: 03/26/17 09:04 Dose: 1 applic Digoxin (Lanoxin) 125 mcg PO DAILY [facility] Last Admin: 03/26/17 09:05 Dose: 125 mcg Nitroglycerin/Dextrose (Nitroglycerin 25 Mg/D5w 250 Ml) 25 mg in 250 mls @ 3 mls/hr IV TITRATE LELAND; 5 MCG/MIN PRN Reason: Protocol Last Titration: 03/26/17 13:52 Dose: 10 mcg/min, 6 mls/hr Sodium Chloride (Normal Saline) 250 mls @ 30 mls/hr IV ASDIRECTED [facility] Levofloxacin 500 mg/ (Levofloxacin 250 mg) 750 mg PO Q24H [facility] Last Admin: 03/26/17 09:03 Dose: 750 mg Lorazepam (Ativan) 1 mg IVPUSH Q8H [facility] Last Admin: 03/26/17 14:05 Dose: 1 mg Metoprolol Tartrate (Lopressor) 50 mg PO BID [facility] Last Admin: 03/26/17 09:06 Dose: 50 mg Mometasone Furoate/Formoterol Fumar (Dulera 100-5 Mcg) 2 puff IH BIDRT [facility] Last Admin: 03/26/17 06:39 Dose: 2 puff Ondansetron HCl (Zofran Odt) 4 mg PO Q4H PRN PRN Reason: nausea, able to take PO Ondansetron HCl (Zofran) 4 mg IV Q4H PRN PRN Reason: Nausea/Vomiting Last Admin: 03/26/17 12:32 Dose: 4 mg Potassium Chloride (Klor-Con 8) 8 meq PO DAILY [facility] Last Admin: 03/26/17 09:05 Dose: 8 meq Saccharomyces Boulardii (Florastor) 250 mg PO BID [facility] Last Admin: 03/26/17 09:04 Dose: 250 mg Senna/Docusate Sodium (Senna Plus) 1 tab PO BID PRN PRN Reason: Constipation Simvastatin (Zocor) 5 mg PO DAILY [facility] Last Admin: 03/26/17 09:06 Dose: 5 mg Sodium Chloride (Saline Flush) 10 ml FLUSH ASDIRECTED PRN PRN Reason: Keep Vein Open Last Admin: 03/26/17 14:09 Dose: 10 ml Warfarin Sodium (Coumadin Sliding Scale) 0 each PO ASDIRECTED [facility] Discontinued Medications Albuterol/Ipratropium (Duoneb 3.0-0.5 Mg/3 Ml) 3 ml NEB QIDRT [facility] Last Admin: 03/26/17 10:40 Dose: 3 ml Alprazolam (Xanax) 1 mg PO TID [facility] Last Admin: 03/25/17 21:36 Dose: 1 mg Alprazolam (Xanax) 1 mg PO TID [facility] Last Admin: 03/26/17 08:28 Dose: 1 mg Aspirin (Aspirin) 243 mg PO ONETIME ONE Stop: 03/26/17 12:46 Last Admin: 03/26/17 12:23 Dose: 243 mg Levofloxacin/Dextrose 750 mg/ (Premix) 150 mls @ 100 mls/hr IV Q48H [facility] Last Admin: 03/23/17 18:03 Dose: 100 mls/hr Sodium Chloride (Normal Saline) 1,000 mls @ 100 mls/hr IV ASDIRECTED [facility] Last Admin: 03/26/17 06:38 Dose: 100 mls/hr Lactated Ringer's (Ringers, Lactated) 1,000 mls @ 125 mls/hr IV .BOLUS [facility] Stop: 03/24/17 02:00 Lorazepam (Ativan) 0.5 mg IVPUSH ONETIME ONE Stop: 03/26/17 12:27 Last Admin: 03/26/17 12:35 Dose: 0.5 mg Metoprolol Tartrate (Lopressor) 5 mg IVPUSH ONETIME ONE Stop: 03/26/17 12:14 Last Admin: 03/26/17 12:21 Dose: 5 mg Metoprolol Tartrate (Lopressor) 5 mg IVPUSH ONETIME ONE Stop: 03/26/17 12:46 Last Admin: 03/26/17 12:53 Dose: 5 mg Mometasone Furoate/Formoterol Fumar (Dulera 100-5 Mcg) 2 puff IH BIDRT [facility] Last Admin: 03/24/17 06:38 Dose: 2 puff Prednisone (Prednisone) 40 mg PO WITHBREAKFAST [facility] Last Admin: 03/25/17 08:29 Dose: 40 mg Warfarin Sodium (Coumadin) 5 mg PO DAILY@1600 [facility] Warfarin Sodium (Coumadin) 5 mg PO 1600 [facility] Stop: 03/24/17 16:01 Last Admin: 03/24/17 16:16 Dose: 5 mg Warfarin Sodium (Coumadin) 2.5 mg PO 1600 [facility] Stop: 03/25/17 16:01 Last Admin: 03/25/17 16:34 Dose: 2.5 mg - Exam Quality Assessment: Supplemental Oxygen General: Alert, Oriented, Cooperative, No Acute Distress HEENT: Pupils Equal, Pupils Reactive Neck: Supple Lungs: Clear to Auscultation, Normal Respiratory Effort Cardiovascular: Regular Rhythm, No Murmurs, Tachycardia GI/Abdominal Exam: Normal Bowel Sounds, Soft, Non-Tender, No Distention Back Exam: Normal Inspection Extremities: Normal Inspection, No Pedal Edema Skin: Ecchymosis (Bruising throughout both upper extremities.) Psy/Mental Status: Alert, Anxious (Responded well to IV Ativan.) EKG INTERPRETATION EKG Date: 03/26/17 (First EKG showed A. fib with RVR inverted T waves in 1-[address] depression in leads V2 through V5) Time: 11:58 (Second EKG done at 1327 showed resolution of those abnormalities. Patient was still in atrial fibrillation rate 94.) - Problem List & Annotations (1) Hypertensive emergency SNOMED Code(s): 191364007518279 Code(s): I16.1 - HYPERTENSIVE EMERGENCY Status: Acute Current Visit: Yes Annotation/Comment:: Patient has responded well to nitroglycerin and metoprolol IV therapy. We'll increase metoprolol to 100 mg by mouth twice a day. If she needs this decreased at a later point it can be done. We'll need to monitor for worsening of asthma as beta blockers can worsen reactive airways. Wean nitroglycerin as able. Also made albuterol PRN as can worsen tachycardia. (2) CAP (community acquired pneumonia) SNOMED Code(s): 308059499 Code(s): J18.9 - PNEUMONIA, UNSPECIFIED ORGANISM Status: Acute Current Visit: Yes Qualifiers: Laterality: right Lung location: middle lobe of lung Qualified Code(s): J18.1 - Lobar pneumonia, unspecified organism Annotation/Comment:: ID showed Haemophilus influenza. Antibiotics should be able to be de-escalated as soon as sensitivities are back. (3) Chronic atrial fibrillation SNOMED Code(s): 043072111 Code(s): I48.2 - CHRONIC ATRIAL FIBRILLATION Status: Chronic Current Visit: Yes Annotation/Comment:: patient currently rate controlled and anticoagulated. We will increase metoprolol to 100 mg by mouth twice a day. This may be able to be decreased once patient is returned to baseline. (4) Hypertension SNOMED Code(s): 23774132 Code(s): I10 - ESSENTIAL (PRIMARY) HYPERTENSION Status: Chronic Current Visit: Yes Annotation/Comment:: See above. (5) History of mitral valve replacement with bioprosthetic valve SNOMED Code(s): 708480898, 1001922558170 Code(s): Z95.3 - PRESENCE OF XENOGENIC HEART VALVE Status: Acute Current Visit: Yes Annotation/Comment:: Stable. (6) COPD (chronic obstructive pulmonary disease) SNOMED Code(s): 24471692 Code(s): J44.9 - CHRONIC OBSTRUCTIVE PULMONARY DISEASE, UNSPECIFIED Status : Acute Current Visit: Yes Annotation/Comment:: see above. Nebs. (7) Asthma SNOMED Code(s): 581133644 Code(s): J45.909 - UNSPECIFIED ASTHMA, UNCOMPLICATED Status: Acute Current Visit: Yes Annotation/Comment:: see above. 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 Pharmacy to follow. Supratherapeutic today. (9) Candidiasis SNOMED Code(s): 11831118 Code(s): B37.9 - CANDIDIASIS, UNSPECIFIED Status: Acute Current Visit: Yes Annotation/Comment:: Of groin fold. Use antifungal topically until gone. - Problem List Review Problem List Initiated/Reviewed/Updated: Yes - My Orders Last 24 Hours: My Active Orders 03/25/17 21:00 Clotrimazole [Clotrimazole 1%] 0 gm TOP BID 03/26/17 08:30 Convert IV to Saline Lock [OM.PC] Routine 03/26/17 11:32 EKG 12 Lead [EK] Routine 03/26/17 12:35 Sodium Chloride 0.9% [Normal Saline] 250 ml IV ASDIRECTED 03/26/17 12:45 Nitroglycerin/D5W [Nitroglycerin 25 MG/D5W 250 ML] 25 mg in 250 ml IV TITRATE 03/26/17 13:01 EKG 12 Lead [EK] Routine 03/26/17 13:30 LORazepam [Ativan] 1 mg IVPUSH Q8H 10/18/17 Dinner 2 Gram Sodium Diet [DIET] 03/27/17 08:44 INR,PT,PROTHROMBIN TIME [COAG] DAILY 03/28/17 08:44 INR,PT,PROTHROMBIN TIME [COAG] DAILY 03/29/17 08:44 INR,PT,PROTHROMBIN TIME [COAG] DAILY 03/30/17 08:44 INR,PT,PROTHROMBIN TIME [COAG] DAILY 03/31/17 08:44 INR,PT,PROTHROMBIN TIME [COAG] DAILY - Plan Plan:: Anticipate discharge within 48 hours.
[2017-03-26] MEDS ORDERED: Metoprolol Tartrate 50 MG Tab PO SCH (18:43)
[2017-03-26] MEDS: Sodium Chloride 0.9% 250 ML IV SCH (21:25)
[2017-03-27] MEDS: LORazepam 2 MG/ML MDV IVPUSH SCH (06:23)
[2017-03-27] MEDS: Sodium Chloride 0.9% 250 ML IV SCH (06:26)
--- NOTE | 2017-03-27 08:08 | PCM.PN ---
- General Info Date of Service: 03/27/17 Admission Dx/Problem (Free Text): Patient states that she had a fever and that's now gone. She still coughs is productive. She denies shortness of breath this time. She has some tremors but that's normal for her. She does not feel agitated inside or anxious. - Patient Data Vitals - Most Recent: Last Vital Signs Temp 97.8 F 03/27/17 05:00 Pulse 89 03/27/17 07:00 Resp 28 H 03/27/17 07:00 BP 131/70 03/27/17 07:00 Pulse Ox 96 03/27/17 07:00 Weight - Most Recent: 170 lb 8 oz I&O - Last 24 Hours: Intake & Output 03/26/17 03/27/17 03/27/17 22:59 06:59 14:59 Intake Total 318 316 Output Total 100 200 Balance 218 116 Lab Results Last 24 Hours: Laboratory Results - last 24 hr 03/26/17 03/26/17 03/26/17 Range/Units 12:35 12:35 12:35 WBC 14.4 H (4.5-12.0) X10-3/uL RBC 4.36 (3.23-5.20) x10(6)uL Hgb 12.1 (11.5-15.5) g/dL Hct 37.4 (30.0-51.3) % MCV 86.0 (80-96) fL MCH 27.8 (27.7-33.6) pg MCHC 32.3 (32.2-35.4) g/dL RDW 14.4 (11.5-15.5) % Plt Count 355 (125-369) X10(3)uL MPV (7.4-10.4) fL Add Manual Diff Neutrophils % (Manual) (46-82) % Band Neutrophils % (0-6) % Lymphocytes % (Manual) (13-37) % Monocytes % (Manual) (4-12) % Eosinophils % (Manual) (0-5) % PT (8.7-11.1) INR (0.89-1.13) Sodium 140 (135-145) mmol/L Potassium 3.3 L (3.5-5.3) mmol/L Chloride 108 (100-110) mmol/L Carbon Dioxide 19 L (23-29) mmol/L BUN 15 (8-23) mg/dL Creatinine 0.8 (0.6-1.3) mg/dL Est Cr Clr Drug Dosing 52.47 mL/min Estimated GFR (MDRD) > 60 (>60) BUN/Creatinine Ratio 18.8 (9-20) Glucose 102 (80-116) mg/dL Calcium 8.3 L (8.6-10.2) mg/dL Total Bilirubin 0.4 (0.1-1.3) mg/dL AST 58 H D (5-27) IU/L ALT 64 H D (14-26) IU/L Alkaline Phosphatase 102 (56-112) IU/L Troponin I 0.01 L (0.02-0.06) NG/ML Total Protein 7.0 (6.0-8.0) g/dL Albumin 2.5 L (3.2-4.6) g/dL Globulin 4.5 g/dL Albumin/Globulin Ratio 0.6 03/26/17 03/27/17 03/27/17 Range/Units 16:35 06:10 06:10 WBC 10.1 (4.5-12.0) X10-3/uL RBC 3.60 (3.23-5.20) x10(6)uL Hgb 10.3 L (11.5-15.5) g/dL Hct 31.2 (30.0-51.3) % MCV 86.6 (80-96) fL MCH 28.8 (27.7-33.6) pg MCHC 33.2 (32.2-35.4) g/dL RDW 14.5 (11.5-15.5) % Plt Count 290 (125-369) X10(3)uL MPV 8.3 (7.4-10.4) fL Add Manual Diff Yes Neutrophils % (Manual) 68 (46-82) % Band Neutrophils % 4 (0-6) % Lymphocytes % (Manual) 19 (13-37) % Monocytes % (Manual) 8 (4-12) % Eosinophils % (Manual) 1 (0-5) % PT 36.2 H* (8.7-11.1) INR 3.49 H (0.89-1.13) Sodium (135-145) mmol/L Potassium (3.5-5.3) mmol/L Chloride (100-110) mmol/L Carbon Dioxide (23-29) mmol/L BUN (8-23) mg/dL Creatinine (0.6-1.3) mg/dL Est Cr Clr Drug Dosing mL/min Estimated GFR (MDRD) (>60) BUN/Creatinine Ratio (9-20) Glucose (80-116) mg/dL Calcium (8.6-10.2) mg/dL Total Bilirubin (0.1-1.3) mg/dL AST (5-27) IU/L ALT (14-26) IU/L Alkaline Phosphatase (56-112) IU/L Troponin I 0.03 (0.02-0.06) NG/ML Total Protein (6.0-8.0) g/dL Albumin (3.2-4.6) g/dL Globulin g/dL Albumin/Globulin Ratio 03/27/17 03/27/17 Range/Units 06:10 06:10 WBC (4.5-12.0) X10-3/uL RBC (3.23-5.20) x10(6)uL Hgb (11.5-15.5) g/dL Hct (30.0-51.3) % MCV (80-96) fL MCH (27.7-33.6) pg MCHC (32.2-35.4) g/dL RDW (11.5-15.5) % Plt Count (125-369) X10(3)uL MPV (7.4-10.4) fL Add Manual Diff Neutrophils % (Manual) (46-82) % Band Neutrophils % (0-6) % Lymphocytes % (Manual) (13-37) % Monocytes % (Manual) (4-12) % Eosinophils % (Manual) (0-5) % PT (8.7-11.1) INR (0.89-1.13) Sodium 136 (135-145) mmol/L Potassium 3.0 L (3.5-5.3) mmol/L Chloride 101 D (100-110) mmol/L Carbon Dioxide 27 (23-29) mmol/L BUN 12 (8-23) mg/dL Creatinine 0.7 (0.6-1.3) mg/dL Est Cr Clr Drug Dosing 59.96 mL/min Estimated GFR (MDRD) > 60 (>60) BUN/Creatinine Ratio 17.1 (9-20) Glucose 96 (80-116) mg/dL Calcium 7.3 L (8.6-10.2) mg/dL Total Bilirubin 0.5 (0.1-1.3) mg/dL AST 34 H D (5-27) IU/L ALT 48 H D (14-26) IU/L Alkaline Phosphatase 83 (56-112) IU/L Troponin I 0.06 (0.02-0.06) NG/ML Total Protein 5.8 L (6.0-8.0) g/dL Albumin 2.1 L (3.2-4.6) g/dL Globulin 3.7 g/dL Albumin/Globulin Ratio 0.6 Med Orders - Current: Current Medications Acetaminophen (Tylenol) 650 mg PO Q4H PRN PRN Reason: Pain (Mild 1-3)/fever Last Admin: 03/26/17 02:13 Dose: 650 mg Albuterol (Ventolin Hfa) 0 gm INH Q4H PRN PRN Reason: Wheezing Last Admin: 03/26/17 02:10 Dose: 2 puff Aspirin (Halfprin) 81 mg PO DAILY [facility] Last Admin: 03/26/17 09:05 Dose: 81 mg Clotrimazole (Clotrimazole 1%) 0 gm TOP BID [facility] Last Admin: 03/26/17 20:56 Dose: 1 applic Digoxin (Lanoxin) 125 mcg PO DAILY [facility] Last Admin: 03/26/17 09:05 Dose: 125 mcg Nitroglycerin/Dextrose (Nitroglycerin 25 Mg/D5w 250 Ml) 25 mg in 250 mls @ 3 mls/hr IV TITRATE [place]; 5 MCG/MIN PRN Reason: Protocol Last Titration: 03/26/17 13:52 Dose: 10 mcg/min, 6 mls/hr Sodium Chloride (Normal Saline) 250 mls @ 30 mls/hr IV ASDIRECTED [facility] Last Admin: 03/27/17 06:26 Dose: 30 mls/hr Levofloxacin 500 mg/ (Levofloxacin 250 mg) 750 mg PO Q24H [facility] Last Admin: 03/26/17 09:03 Dose: 750 mg Lorazepam (Ativan) 1 mg PO TID [facility] Metoprolol Tartrate (Lopressor) 100 mg PO BID [facility] Mometasone Furoate/Formoterol Fumar (Dulera 100-5 Mcg) 2 puff IH BIDRT [facility] Last Admin: 03/26/17 20:57 Dose: 2 puff Ondansetron HCl (Zofran Odt) 4 mg PO Q4H PRN PRN Reason: nausea, able to take PO Ondansetron HCl (Zofran) 4 mg IV Q4H PRN PRN Reason: Nausea/Vomiting Last Admin: 03/26/17 12:32 Dose: 4 mg Potassium Chloride (Klor-Con 8) 8 meq PO DAILY [facility] Last Admin: 03/26/17 09:05 Dose: 8 meq Saccharomyces Boulardii (Florastor) 250 mg PO BID [facility] Last Admin: 03/26/17 20:58 Dose: 250 mg Senna/Docusate Sodium (Senna Plus) 1 tab PO BID PRN PRN Reason: Constipation Simvastatin (Zocor) 5 mg PO DAILY [facility] Last Admin: 03/26/17 09:06 Dose: 5 mg Sodium Chloride (Saline Flush) 10 ml FLUSH ASDIRECTED PRN PRN Reason: Keep Vein Open Last Admin: 03/26/17 21:22 Dose: 10 ml Warfarin Sodium (Coumadin Sliding Scale) 0 each PO ASDIRECTED [facility] Discontinued Medications Albuterol/Ipratropium (Duoneb 3.0-0.5 Mg/3 Ml) 3 ml NEB QIDRT [facility] Last Admin: 03/26/17 10:40 Dose: 3 ml Alprazolam (Xanax) 1 mg PO TID [facility] Last Admin: 03/25/17 21:36 Dose: 1 mg Alprazolam (Xanax) 1 mg PO TID [facility] Last Admin: 03/26/17 08:28 Dose: 1 mg Aspirin (Aspirin) 243 mg PO ONETIME ONE Stop: 03/26/17 12:46 Last Admin: 03/26/17 12:23 Dose: 243 mg Levofloxacin/Dextrose 750 mg/ (Premix) 150 mls @ 100 mls/hr IV Q48H [facility] Last Admin: 03/23/17 18:03 Dose: 100 mls/hr Sodium Chloride (Normal Saline) 1,000 mls @ 100 mls/hr IV ASDIRECTED [facility] Last Admin: 03/26/17 06:38 Dose: 100 mls/hr Lactated Ringer's (Ringers, Lactated) 1,000 mls @ 125 mls/hr IV .BOLUS [facility] Stop: 03/24/17 02:00 Lorazepam (Ativan) 0.5 mg IVPUSH ONETIME ONE Stop: 03/26/17 12:27 Last Admin: 03/26/17 12:35 Dose: 0.5 mg Lorazepam (Ativan) 1 mg IVPUSH Q8H [facility] Last Admin: 03/27/17 06:23 Dose: 1 mg Metoprolol Tartrate (Lopressor) 50 mg PO BID [facility] Last Admin: 03/26/17 09:06 Dose: 50 mg Metoprolol Tartrate (Lopressor) 5 mg IVPUSH ONETIME ONE Stop: 03/26/17 12:14 Last Admin: 03/26/17 12:21 Dose: 5 mg Metoprolol Tartrate (Lopressor) 5 mg IVPUSH ONETIME ONE Stop: 03/26/17 12:46 Last Admin: 03/26/17 12:53 Dose: 5 mg Metoprolol Tartrate (Lopressor) 100 mg PO BID [facility] Last Admin: 03/26/17 21:08 Dose: 100 mg Mometasone Furoate/Formoterol Fumar (Dulera 100-5 Mcg) 2 puff IH BIDRT [facility] Last Admin: 03/24/17 06:38 Dose: 2 puff Prednisone (Prednisone) 40 mg PO WITHBREAKFAST [facility] Last Admin: 03/25/17 08:29 Dose: 40 mg Warfarin Sodium (Coumadin) 5 mg PO DAILY@1600 [facility] Warfarin Sodium (Coumadin) 5 mg PO 1600 [facility] Stop: 03/24/17 16:01 Last Admin: 03/24/17 16:16 Dose: 5 mg Warfarin Sodium (Coumadin) 2.5 mg PO 1600 [facility] Stop: 03/25/17 16:01 Last Admin: 03/25/17 16:34 Dose: 2.5 mg - Exam General: Alert, Oriented, Cooperative Neck: Supple Lungs: Normal Respiratory Effort, Crackles Cardiovascular: Regular Rate, Regular Rhythm, No Murmurs Extremities: No Pedal Edema - Problem List & Annotations (1) CAP (community acquired pneumonia) SNOMED Code(s): 524982704 Code(s): J18.9 - PNEUMONIA, UNSPECIFIED ORGANISM Status: Acute Current Visit: Yes Qualifiers: Laterality: right Lung location: middle lobe of lung Qualified Code(s): J18.1 - Lobar pneumonia, unspecified organism Annotation/Comment:: ID showed Haemophilus influenza. Antibiotics should be able to be de-escalated as soon as sensitivities are back. (2) Candidiasis SNOMED Code(s): 48221792 Code(s): B37.9 - CANDIDIASIS, UNSPECIFIED Status: Acute Current Visit: Yes Annotation/Comment:: Of groin fold. Use antifungal topically until gone. (3) Hypertensive emergency SNOMED Code(s): 610450004944032 Code(s): I16.1 - HYPERTENSIVE EMERGENCY Status: Acute Current Visit: Yes Annotation/Comment:: Patient has responded well to nitroglycerin and metoprolol IV therapy. We'll increase metoprolol to 100 mg by mouth twice a day. If she needs this decreased at a later point it can be done. We'll need to monitor for worsening of asthma as beta blockers can worsen reactive airways. Wean nitroglycerin as able. Also made albuterol PRN as can worsen tachycardia. (4) Palliative care patient SNOMED Code(s): 533408911 Code(s): Z51.5 - ENCOUNTER FOR PALLIATIVE CARE Status: Acute Current Visit: Yes (5) Asthma SNOMED Code(s): 921889817 Code(s): J45.909 - UNSPECIFIED ASTHMA, UNCOMPLICATED Status: Acute Current Visit: Yes Annotation/Comment:: see above. - Problem List Review Problem List Initiated/Reviewed/Updated: Yes - My Orders Last 24 Hours: My Active Orders 03/27/17 08:15 LORazepam [Ativan] 1 mg PO TID - Plan Plan:: 1. Wean down nitroglycerin watch blood pressure. 2. Stop IV Ativan and start 1 mg Ativan 3 times a day. That's was on the reconciliation sheet. 3. Continue IV antibiotics. 4. Wait for the sensitivity of the H. influenzae. 5. Patient's blood pressure is controlled and pulse controlled consider transferring out of ICU.
[2017-03-27] MEDS: Formoterol/Mometasone 100-5 MCG 8.8 GM Inhaler IH SCH ×2 (08:15→20:49)
[2017-03-27] MEDS ORDERED: LORazepam 1 MG Tab PO SCH (08:15)
[2017-03-27] MEDS: Aspirin 81 MG Tab.EC PO SCH (08:16)
[2017-03-27] MEDS: Clotrimazole 1% Crm 15 GM Tube TOP SCH ×2 (08:16→20:48)
[2017-03-27] MEDS: Saccharomyces Boulardii (Probiotic) 250 MG Cap PO SCH ×2 (08:16→20:50)
[2017-03-27] MEDS: Simvastatin 10 MG Tab PO SCH (08:17)
[2017-03-27] MEDS: Potassium Chloride 8 MEQ Tab.ER PO SCH ×3 (08:17→20:50)
[2017-03-27] MEDS: Digoxin 125 MCG Tab PO SCH (08:17)
[2017-03-27] MEDS: Metoprolol Tartrate 100 MG Tab PO SCH ×2 (08:26→20:51)
[2017-03-27] MEDS: ALPRAZolam 1 MG Tab PO SCH ×2 (13:40→20:54)
[2017-03-27] MEDS ORDERED: ALPRAZolam 1 MG Tab PO SCH (14:00)
--- NOTE | 2017-03-28 07:23 | PCM.PN ---
- General Info Date of Service: 03/28/17 Admission Dx/Problem (Free Text): Patient states she feels better today. Breathing better. Still has a cough. Shaking is better. No fevers, chills or shortness of breath. - Patient Data Vitals - Most Recent: Last Vital Signs Temp 98.1 F 03/28/17 06:30 Pulse 103 H 03/28/17 06:30 Resp 18 03/28/17 06:30 BP 162/69 H 03/28/17 06:30 Pulse Ox 95 03/28/17 06:30 Weight - Most Recent: 167 lb 12.8 oz I&O - Last 24 Hours: Intake & Output 03/27/17 03/28/17 03/28/17 22:59 06:59 14:59 Intake Total 0 100 0 Output Total 0 0 Balance 0 100 0 Lab Results Last 24 Hours: Laboratory Results - last 24 hr 03/27/17 03/27/17 03/27/17 Range/Units 06:10 06:10 06:10 WBC 10.1 (4.5-12.0) X10-3/uL RBC 3.60 (3.23-5.20) x10(6)uL Hgb 10.3 L (11.5-15.5) g/dL Hct 31.2 (30.0-51.3) % MCV 86.6 (80-96) fL MCH 28.8 (27.7-33.6) pg MCHC 33.2 (32.2-35.4) g/dL RDW 14.5 (11.5-15.5) % Plt Count 290 (125-369) X10(3)uL MPV 8.3 (7.4-10.4) fL Add Manual Diff Yes Neutrophils % (Manual) 68 (46-82) % Band Neutrophils % 4 (0-6) % Lymphocytes % (Manual) 19 (13-37) % Monocytes % (Manual) 8 (4-12) % Eosinophils % (Manual) 1 (0-5) % PT 36.2 H* (8.7-11.1) INR 3.49 H (0.89-1.13) Sodium 136 (135-145) mmol/L Potassium 3.0 L (3.5-5.3) mmol/L Chloride 101 D (100-110) mmol/L Carbon Dioxide 27 (23-29) mmol/L BUN 12 (8-23) mg/dL Creatinine 0.7 (0.6-1.3) mg/dL Est Cr Clr Drug Dosing 59.96 mL/min Estimated GFR (MDRD) > 60 (>60) BUN/Creatinine Ratio 17.1 (9-20) Glucose 96 (80-116) mg/dL Calcium 7.3 L (8.6-10.2) mg/dL Total Bilirubin 0.5 (0.1-1.3) mg/dL AST 34 H D (5-27) IU/L ALT 48 H D (14-26) IU/L Alkaline Phosphatase 83 (56-112) IU/L Troponin I (0.02-0.06) NG/ML Total Protein 5.8 L (6.0-8.0) g/dL Albumin 2.1 L (3.2-4.6) g/dL Globulin 3.7 g/dL Albumin/Globulin Ratio 0.6 // Range/Units 06:10 WBC (4.5-12.0) X10-3/uL RBC (3.23-5.20) x10(6)uL Hgb (11.5-15.5) g/dL Hct (30.0-51.3) % MCV (80-96) fL MCH (27.7-33.6) pg MCHC (32.2-35.4) g/dL RDW (11.5-15.5) % Plt Count (125-369) X10(3)uL MPV (7.4-10.4) fL Add Manual Diff Neutrophils % (Manual) (46-82) % Band Neutrophils % (0-6) % Lymphocytes % (Manual) (13-37) % Monocytes % (Manual) (4-12) % Eosinophils % (Manual) (0-5) % PT (8.7-11.1) INR (0.89-1.13) Sodium (135-145) mmol/L Potassium (3.5-5.3) mmol/L Chloride (100-110) mmol/L Carbon Dioxide (23-29) mmol/L BUN (8-23) mg/dL Creatinine (0.6-1.3) mg/dL Est Cr Clr Drug Dosing mL/min Estimated GFR (MDRD) (>60) BUN/Creatinine Ratio (9-20) Glucose (80-116) mg/dL Calcium (8.6-10.2) mg/dL Total Bilirubin (0.1-1.3) mg/dL AST (5-27) IU/L ALT (14-26) IU/L Alkaline Phosphatase (56-112) IU/L Troponin I 0.06 (0.02-0.06) NG/ML Total Protein (6.0-8.0) g/dL Albumin (3.2-4.6) g/dL Globulin g/dL Albumin/Globulin Ratio Med Orders - Current: Current Medications Acetaminophen (Tylenol) 650 mg PO Q4H PRN PRN Reason: Pain (Mild 1-3)/fever Last Admin: 03/26/17 02:13 Dose: 650 mg Albuterol (Ventolin Hfa) 0 gm INH Q4H PRN PRN Reason: Wheezing Last Admin: 03/26/17 02:10 Dose: 2 puff Alprazolam (Xanax) 1 mg PO TID [facility] Last Admin: 03/27/17 20:54 Dose: 1 mg Aspirin (Halfprin) 81 mg PO DAILY [facility] Last Admin: 03/27/17 08:16 Dose: 81 mg Clotrimazole (Clotrimazole 1%) 0 gm TOP BID [facility] Last Admin: 03/27/17 20:48 Dose: Not Given Digoxin (Lanoxin) 125 mcg PO DAILY [facility] Last Admin: 03/27/17 08:17 Dose: 125 mcg Levofloxacin 500 mg/ (Levofloxacin 250 mg) 750 mg PO Q24H [facility] Last Admin: 03/27/17 08:15 Dose: 750 mg Metoprolol Tartrate (Lopressor) 100 mg PO BID [facility] Last Admin: 03/27/17 20:51 Dose: 100 mg Mometasone Furoate/Formoterol Fumar (Dulera 100-5 Mcg) 2 puff IH BIDRT [facility] Last Admin: 03/27/17 20:49 Dose: 2 puff Ondansetron HCl (Zofran Odt) 4 mg PO Q4H PRN PRN Reason: nausea, able to take PO Ondansetron HCl (Zofran) 4 mg IV Q4H PRN PRN Reason: Nausea/Vomiting Last Admin: 03/26/17 12:32 Dose: 4 mg Potassium Chloride (Klor-Con M20) 20 meq PO BID [facility] Saccharomyces Boulardii (Florastor) 250 mg PO BID [facility] Last Admin: 03/27/17 20:50 Dose: 250 mg Senna/Docusate Sodium (Senna Plus) 1 tab PO BID PRN PRN Reason: Constipation Simvastatin (Zocor) 5 mg PO DAILY [facility] Last Admin: 03/27/17 08:17 Dose: 5 mg Sodium Chloride (Saline Flush) 10 ml FLUSH ASDIRECTED PRN PRN Reason: Keep Vein Open Last Admin: 03/26/17 21:22 Dose: 10 ml Warfarin Sodium (Coumadin Sliding Scale) 0 each PO ASDIRECTED [facility] Discontinued Medications Albuterol/Ipratropium (Duoneb 3.0-0.5 Mg/3 Ml) 3 ml NEB QIDRT [facility] Last Admin: 03/26/17 10:40 Dose: 3 ml Alprazolam (Xanax) 1 mg PO TID [facility] Last Admin: 03/25/17 21:36 Dose: 1 mg Alprazolam (Xanax) 1 mg PO TID [facility] Last Admin: 03/26/17 08:28 Dose: 1 mg Alprazolam (Xanax) 1 mg PO TID [facility] Aspirin (Aspirin) 243 mg PO ONETIME ONE Stop: 03/26/17 12:46 Last Admin: 03/26/17 12:23 Dose: 243 mg Levofloxacin/Dextrose 750 mg/ (Premix) 150 mls @ 100 mls/hr IV Q48H [facility] Last Admin: 03/23/17 18:03 Dose: 100 mls/hr Sodium Chloride (Normal Saline) 1,000 mls @ 100 mls/hr IV ASDIRECTED [facility] Last Admin: 03/26/17 06:38 Dose: 100 mls/hr Lactated Ringer's (Ringers, Lactated) 1,000 mls @ 125 mls/hr IV .BOLUS [facility] Stop: 03/24/17 02:00 Nitroglycerin/Dextrose (Nitroglycerin 25 Mg/D5w 250 Ml) 25 mg in 250 mls @ 3 mls/hr IV TITRATE [facility]; 5 MCG/MIN PRN Reason: Protocol Last Titration: 03/26/17 13:52 Dose: 10 mcg/min, 6 mls/hr Sodium Chloride (Normal Saline) 250 mls @ 30 mls/hr IV ASDIRECTED [facility] Last Admin: 03/27/17 06:26 Dose: 30 mls/hr Lorazepam (Ativan) 0.5 mg IVPUSH ONETIME ONE Stop: 03/26/17 12:27 Last Admin: 03/26/17 12:35 Dose: 0.5 mg Lorazepam (Ativan) 1 mg IVPUSH Q8H [facility] Last Admin: 03/27/17 06:23 Dose: 1 mg Lorazepam (Ativan) 1 mg PO TID [facility] Last Admin: 03/27/17 08:25 Dose: 1 mg Metoprolol Tartrate (Lopressor) 50 mg PO BID [facility] Last Admin: 03/26/17 09:06 Dose: 50 mg Metoprolol Tartrate (Lopressor) 5 mg IVPUSH ONETIME ONE Stop: 03/26/17 12:14 Last Admin: 03/26/17 12:21 Dose: 5 mg Metoprolol Tartrate (Lopressor) 5 mg IVPUSH ONETIME ONE Stop: 03/26/17 12:46 Last Admin: 03/26/17 12:53 Dose: 5 mg Metoprolol Tartrate (Lopressor) 100 mg PO BID [facility] Last Admin: 03/26/17 21:08 Dose: 100 mg Mometasone Furoate/Formoterol Fumar (Dulera 100-5 Mcg) 2 puff IH BIDRT [facility] Last Admin: 03/24/17 06:38 Dose: 2 puff Potassium Chloride (Klor-Con 8) 8 meq PO DAILY [facility] Last Admin: 03/27/17 08:17 Dose: 8 meq Potassium Chloride (Klor-Con 8) 8 meq PO TID [facility] Last Admin: 03/27/17 20:50 Dose: 8 meq Prednisone (Prednisone) 40 mg PO WITHBREAKFAST [facility] Last Admin: 03/25/17 08:29 Dose: 40 mg Warfarin Sodium (Coumadin) 5 mg PO DAILY@1600 [facility] Warfarin Sodium (Coumadin) 5 mg PO 1600 [facility] Stop: 03/24/17 16:01 Last Admin: 03/24/17 16:16 Dose: 5 mg Warfarin Sodium (Coumadin) 2.5 mg PO 1600 [facility] Stop: 03/25/17 16:01 Last Admin: 03/25/17 16:34 Dose: 2.5 mg - Exam General: Alert, Oriented, Cooperative Lungs: Clear to Auscultation, Normal Respiratory Effort Cardiovascular: Regular Rate, Regular Rhythm Extremities: No Pedal Edema - Problem List & Annotations (1) CAP (community acquired pneumonia) SNOMED Code(s): 055523158 Code(s): J18.9 - PNEUMONIA, UNSPECIFIED ORGANISM Status: Acute Current Visit: Yes Qualifiers: Laterality: right Lung location: middle lobe of lung Qualified Code(s): J18.1 - Lobar pneumonia, unspecified organism Annotation/Comment:: ID showed Haemophilus influenza. Antibiotics should be able to be de-escalated as soon as sensitivities are back. (2) Candidiasis SNOMED Code(s): 02953835 Code(s): B37.9 - CANDIDIASIS, UNSPECIFIED Status: Acute Current Visit: Yes Annotation/Comment:: Of groin fold. Use antifungal topically until gone. (3) Hypertensive emergency SNOMED Code(s): 175524795245785 Code(s): I16.1 - HYPERTENSIVE EMERGENCY Status: Acute Current Visit: Yes Annotation/Comment:: Patient has responded well to nitroglycerin and metoprolol IV therapy. We'll increase metoprolol to 100 mg by mouth twice a day. If she needs this decreased at a later point it can be done. We'll need to monitor for worsening of asthma as beta blockers can worsen reactive airways. Wean nitroglycerin as able. Also made albuterol PRN as can worsen tachycardia. (4) Palliative care patient SNOMED Code(s): 801607565 Code(s): Z51.5 - ENCOUNTER FOR PALLIATIVE CARE Status: Acute Current Visit: Yes (5) Asthma SNOMED Code(s): 046380402 Code(s): J45.909 - UNSPECIFIED ASTHMA, UNCOMPLICATED Status: Acute Current Visit: Yes Annotation/Comment:: see above. (6) Hypokalemia SNOMED Code(s): 92589424 Code(s): E87.6 - HYPOKALEMIA Status: Acute Current Visit: Yes - Problem List Review Problem List Initiated/Reviewed/Updated: Yes - My Orders Last 24 Hours: My Active Orders 03/27/17 12:30 ALPRAZolam [Xanax] 1 mg PO TID 03/27/17 17:29 Consult to Occupational Therapy [OT Evaluation and Treatment] [CONS] Routine Consult to Physical Therapy [PT Evaluation and Treatment] [CONS] Routine 03/28/17 07:30 Potassium Chloride [Klor-Con M20] 20 meq PO BID - Plan Plan:: 1. DC telemetry. 2. PT/OT evaluation. 3. Stop Konclor and started potassium chloride 20 mg twice a day. 4. Check potassium in a.m. 5. Continue Levaquin. The ideas a sputum was Haemophilus influenza sensitive to Levaquin.
[2017-03-28] MEDS: Saccharomyces Boulardii (Probiotic) 250 MG Cap PO SCH ×2 (08:08→20:58)
[2017-03-28] MEDS: Formoterol/Mometasone 100-5 MCG 8.8 GM Inhaler IH SCH ×2 (08:08→20:58)
[2017-03-28] MEDS: Clotrimazole 1% Crm 15 GM Tube TOP SCH ×2 (08:08→21:00)
[2017-03-28] MEDS: Aspirin 81 MG Tab.EC PO SCH (08:09)
[2017-03-28] MEDS: Digoxin 125 MCG Tab PO SCH (08:12)
[2017-03-28] MEDS: Metoprolol Tartrate 100 MG Tab PO SCH ×2 (08:12→20:59)
[2017-03-28] MEDS: ALPRAZolam 1 MG Tab PO SCH ×3 (08:12→21:03)
[2017-03-28] MEDS: Potassium Chloride 20 MEQ Tab.ER PO SCH ×2 (08:12→20:58)
[2017-03-28] MEDS: Simvastatin 10 MG Tab PO SCH (08:14)
[2017-03-28] MEDS ORDERED: Warfarin 2.5 MG Tab PO SCH (16:00)
[2017-03-28] MEDS: Digoxin 250 MCG Tab PO SCH (18:02)
[2017-03-29] MEDS: Formoterol/Mometasone 100-5 MCG 8.8 GM Inhaler IH SCH (06:50)
--- NOTE | 2017-03-29 07:58 | PCM.PN ---
- General Info Date of Service: 03/29/17 Admission Dx/Problem (Free Text): Patient states she is doing much better. She denies shortness of breath cough, wheezing or fevers or chills. She states she feels a little thrush in her mouth. - Patient Data Vitals - Most Recent: Last Vital Signs Temp 98.1 F 03/29/17 00:00 Pulse 88 03/29/17 00:00 Resp 20 03/29/17 00:00 BP 158/69 H 03/29/17 00:00 Pulse Ox 92 L 03/29/17 00:00 Weight - Most Recent: 161 lb 8 oz I&O - Last 24 Hours: Intake & Output 03/28/17 03/29/17 03/29/17 22:59 06:59 14:59 Intake Total 150 Output Total 1 525 Balance 149 -525 Lab Results Last 24 Hours: Laboratory Results - last 24 hr 03/28/17 03/29/17 03/29/17 Range/Units 15:05 06:22 06:22 PT 19.8 H (8.7-11.1) INR 1.93 H (0.89-1.13) Sodium 137 (135-145) mmol/L Potassium 3.5 (3.5-5.3) mmol/L Chloride 102 (100-110) mmol/L Carbon Dioxide 26 (23-29) mmol/L BUN 10 (8-23) mg/dL Creatinine 0.7 (0.6-1.3) mg/dL Est Cr Clr Drug Dosing 59.96 mL/min Estimated GFR (MDRD) > 60 (>60) BUN/Creatinine Ratio 14.3 (9-20) Glucose 100 (80-116) mg/dL Calcium 7.8 L (8.6-10.2) mg/dL Digoxin 0.8 (0.8-2.0) ng/mL Med Orders - Current: Current Medications Acetaminophen (Tylenol) 650 mg PO Q4H PRN PRN Reason: Pain (Mild 1-3)/fever Last Admin: 03/26/17 02:13 Dose: 650 mg Albuterol (Ventolin Hfa) 0 gm INH Q4H PRN PRN Reason: Wheezing Last Admin: 03/26/17 02:10 Dose: 2 puff Alprazolam (Xanax) 1 mg PO TID [facility] Last Admin: 03/28/17 21:03 Dose: 1 mg Aspirin (Halfprin) 81 mg PO DAILY [facility] Last Admin: 03/28/17 08:09 Dose: 81 mg Clotrimazole (Clotrimazole 1%) 0 gm TOP BID [facility] Last Admin: 03/28/17 21:00 Dose: Not Given Digoxin (Lanoxin) 125 mcg PO DAILY [facility] Last Admin: 03/28/17 08:12 Dose: 125 mcg Digoxin (Lanoxin) 250 mcg PO DAILY [facility] Stop: 03/29/17 09:01 Last Admin: 03/28/17 18:02 Dose: 250 mcg Levofloxacin 500 mg/ (Levofloxacin 250 mg) 750 mg PO Q24H [facility] Last Admin: 03/28/17 08:08 Dose: 750 mg Metoprolol Tartrate (Lopressor) 100 mg PO BID [facility] Last Admin: 03/28/17 20:59 Dose: 100 mg Mometasone Furoate/Formoterol Fumar (Dulera 100-5 Mcg) 2 puff IH BIDRT [facility] Last Admin: 03/29/17 06:50 Dose: 2 puff Ondansetron HCl (Zofran Odt) 4 mg PO Q4H PRN PRN Reason: nausea, able to take PO Ondansetron HCl (Zofran) 4 mg IV Q4H PRN PRN Reason: Nausea/Vomiting Last Admin: 03/26/17 12:32 Dose: 4 mg Potassium Chloride (Klor-Con M20) 20 meq PO BID [facility] Last Admin: 03/28/17 20:58 Dose: 20 meq Saccharomyces Boulardii (Florastor) 250 mg PO BID [facility] Last Admin: 03/28/17 20:58 Dose: 250 mg Senna/Docusate Sodium (Senna Plus) 1 tab PO BID PRN PRN Reason: Constipation Simvastatin (Zocor) 5 mg PO DAILY [facility] Last Admin: 03/28/17 08:14 Dose: 5 mg Sodium Chloride (Saline Flush) 10 ml FLUSH ASDIRECTED PRN PRN Reason: Keep Vein Open Last Admin: 03/26/17 21:22 Dose: 10 ml Warfarin Sodium (Coumadin Sliding Scale) 0 each PO ASDIRECTED [facility] Discontinued Medications Albuterol/Ipratropium (Duoneb 3.0-0.5 Mg/3 Ml) 3 ml NEB QIDRT [facility] Last Admin: 03/26/17 10:40 Dose: 3 ml Alprazolam (Xanax) 1 mg PO TID [facility] Last Admin: 03/25/17 21:36 Dose: 1 mg Alprazolam (Xanax) 1 mg PO TID [facility] Last Admin: 03/26/17 08:28 Dose: 1 mg Alprazolam (Xanax) 1 mg PO TID [facility] Aspirin (Aspirin) 243 mg PO ONETIME ONE Stop: 03/26/17 12:46 Last Admin: 03/26/17 12:23 Dose: 243 mg Levofloxacin/Dextrose 750 mg/ (Premix) 150 mls @ 100 mls/hr IV Q48H [facility] Last Admin: 03/23/17 18:03 Dose: 100 mls/hr Sodium Chloride (Normal Saline) 1,000 mls @ 100 mls/hr IV ASDIRECTED [facility] Last Admin: 03/26/17 06:38 Dose: 100 mls/hr Lactated Ringer's (Ringers, Lactated) 1,000 mls @ 125 mls/hr IV .BOLUS [facility] Stop: 03/24/17 02:00 Nitroglycerin/Dextrose (Nitroglycerin 25 Mg/D5w 250 Ml) 25 mg in 250 mls @ 3 mls/hr IV TITRATE [facility]; 5 MCG/MIN PRN Reason: Protocol Last Titration: 03/26/17 13:52 Dose: 10 mcg/min, 6 mls/hr Sodium Chloride (Normal Saline) 250 mls @ 30 mls/hr IV ASDIRECTED [facility] Last Admin: 03/27/17 06:26 Dose: 30 mls/hr Lorazepam (Ativan) 0.5 mg IVPUSH ONETIME ONE Stop: 03/26/17 12:27 Last Admin: 03/26/17 12:35 Dose: 0.5 mg Lorazepam (Ativan) 1 mg IVPUSH Q8H [facility] Last Admin: 03/27/17 06:23 Dose: 1 mg Lorazepam (Ativan) 1 mg PO TID [facility] Last Admin: 03/27/17 08:25 Dose: 1 mg Metoprolol Tartrate (Lopressor) 50 mg PO BID [facility] Last Admin: 03/26/17 09:06 Dose: 50 mg Metoprolol Tartrate (Lopressor) 5 mg IVPUSH ONETIME ONE Stop: 03/26/17 12:14 Last Admin: 03/26/17 12:21 Dose: 5 mg Metoprolol Tartrate (Lopressor) 5 mg IVPUSH ONETIME ONE Stop: 03/26/17 12:46 Last Admin: 03/26/17 12:53 Dose: 5 mg Metoprolol Tartrate (Lopressor) 100 mg PO BID [facility] Last Admin: 03/26/17 21:08 Dose: 100 mg Mometasone Furoate/Formoterol Fumar (Dulera 100-5 Mcg) 2 puff IH BIDRT [facility] Last Admin: 03/24/17 06:38 Dose: 2 puff Potassium Chloride (Klor-Con 8) 8 meq PO DAILY [facility] Last Admin: 03/27/17 08:17 Dose: 8 meq Potassium Chloride (Klor-Con 8) 8 meq PO TID [facility] Last Admin: 03/27/17 20:50 Dose: 8 meq Prednisone (Prednisone) 40 mg PO WITHBREAKFAST [facility] Last Admin: 03/25/17 08:29 Dose: 40 mg Warfarin Sodium (Coumadin) 5 mg PO DAILY@1600 [facility] Warfarin Sodium (Coumadin) 5 mg PO 1600 [facility] Stop: 03/24/17 16:01 Last Admin: 03/24/17 16:16 Dose: 5 mg Warfarin Sodium (Coumadin) 2.5 mg PO 1600 [facility] Stop: 03/25/17 16:01 Last Admin: 03/25/17 16:34 Dose: 2.5 mg Warfarin Sodium (Coumadin) 2.5 mg PO 1600 [facility] Stop: 03/28/17 20:00 Last Admin: 03/28/17 15:52 Dose: 2.5 mg - Exam General: Alert, Oriented HEENT: Other (Little white 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 Antibiotics should be able to be de-escalated as soon as sensitivities are back. (2) Candidiasis SNOMED Code(s): 95571525 Code(s): B37.9 - CANDIDIASIS, UNSPECIFIED Status: Acute Current Visit: Yes Annotation/Comment:: Of groin fold. Use antifungal topically until gone. (3) Hypertensive emergency SNOMED Code(s): 211799586438695 Code(s): I16.1 - HYPERTENSIVE EMERGENCY Status: Acute Current Visit: Yes Annotation/Comment:: Patient has responded well to nitroglycerin and metoprolol IV therapy. We'll increase metoprolol to 100 mg by mouth twice a day. If she needs this decreased at a later point it can be done. We'll need to monitor for worsening of asthma as beta blockers can worsen reactive airways. Wean nitroglycerin as able. Also made albuterol PRN as can worsen tachycardia. (4) Palliative care patient SNOMED Code(s): 131372701 Code(s): Z51.5 - ENCOUNTER FOR PALLIATIVE CARE Status: Acute Current Visit: Yes (5) Asthma SNOMED Code(s): 070543102 Code(s): J45.909 - UNSPECIFIED ASTHMA, UNCOMPLICATED Status: Acute Current Visit: Yes Annotation/Comment:: see above. (6) Hypokalemia SNOMED Code(s): 21379728 Code(s): E87.6 - HYPOKALEMIA Status: Acute Current Visit: Yes - Problem List Review Problem List Initiated/Reviewed/Updated: Yes - My Orders Last 24 Hours: My Active Orders 03/28/17 09:00 Potassium Chloride [Klor-Con M20] 20 meq PO BID 03/28/17 17:00 Digoxin [Lanoxin] 250 mcg PO DAILY - Plan Plan:: 1. Discharge to home with home health. 2. Levaquin by mouth and increased dose of metipranolol from 50 twice a day 200 twice a day.
--- NOTE | 2017-03-29 08:07 | PCM.DCSUM1 ---
Discharge Summary - Hospital Course Free Text/Narrative:: Hospital course-patient was admitted and placed on Levaquin 750 IV once a day and then later converted to by mouth. She grew out Haemophilus influenza in her sputum culture. Blood cultures were negative. Patient's Xanax was not restarted. Patient had a hypertensive crisis secondary to ends of diazepam withdrawal. She was brought to the ICU put on increase metoprolol 100 mg twice a day and put her on Ativan IV. The next day she recovered from this and did well. Continue the metoprolol 100 mg twice a day can she was a little tachycardic and her atrial fibrillation. Chest x-ray showed bibasilar pneumonia with possible little pleural effusion. Patient was evaluated by PT/OT and they did not find her in need of swing bed. She was little hypokalemic and we'll increase her potassium but I'll send her home on the same dose. I'm going to send her home on Levaquin 750 mg once a day and I increase her metoprolol from 50 twice a day 200 twice a day. We will home health follow her to make sure she doesn't become bradycardic or hypotensive. Brief History: patient is a 77-year-old female with a complex past medical history including bioprosthetic valve replacement, underlying lung disease, history of chronic aspiration, some type of injury to her throat that resulted in her not being able to eat for an extended period of time in the past requiring parenteral feeding. She felt fine last weekend but on Friday started to feel a little under the weather. By evening she was running a fever having chills and a cough which is productive for green yellow sputum. She felt short of breath which gradually worsened throughout the week. She developed some nausea and vomiting. No diarrhea. Finally last night she decided that things were going to get better on their own and presented to the emergency department where she was found to have a right lobe infiltrate consistent with pneumonia. She was started on Levaquin 750 mg IV and admitted to the hospital for further treatment. - Discharge Data Discharge Date: 03/29/17 Discharge Disposition: Home, W Home Health Agency 06 Condition: Good - Discharge Diagnosis/Problem(s) (1) CAP (community acquired pneumonia) SNOMED Code(s): 827504891 ICD Code: J18.9 - PNEUMONIA, UNSPECIFIED ORGANISM Status: Acute Current Visit: Yes Problem Details: ID showed Haemophilus influenza. Antibiotics should be able to be de-escalated as soon as sensitivities are back. Qualifiers: Laterality: right Lung location: middle lobe of lung Qualified Code(s): J18.1 - Lobar pneumonia, unspecified organism (2) Candidiasis SNOMED Code(s): 29229114 ICD Code: B37.9 - CANDIDIASIS, UNSPECIFIED Status: Acute Current Visit: Yes Problem Details: Of groin fold. Use antifungal topically until gone. (3) Hypertensive emergency SNOMED Code(s): 625936672461623 ICD Code: I16.1 - HYPERTENSIVE EMERGENCY Status: Acute Current Visit: Yes Problem Details: Patient has responded well to nitroglycerin and metoprolol IV therapy. We'll increase metoprolol to 100 mg by mouth twice a day. If she needs this decreased at a later point it can be done. We'll need to monitor for worsening of asthma as beta blockers can worsen reactive airways. Wean nitroglycerin as able. Also made albuterol PRN as can worsen tachycardia. (4) Palliative care patient SNOMED Code(s): 668120376 ICD Code: Z51.5 - ENCOUNTER FOR PALLIATIVE CARE Status: Acute Current Visit: Yes (5) Asthma SNOMED Code(s): 864832061 ICD Code: J45.909 - UNSPECIFIED ASTHMA, UNCOMPLICATED Status: Acute Current Visit: Yes Problem Details: see above. (6) Hypokalemia SNOMED Code(s): 74918759 ICD Code: E87.6 - HYPOKALEMIA Status: Acute Current Visit: Yes - Patient Summary/Data Consults: Consultations 03/27/17 17:29 Consult to Occupational Therapy [OT Evaluation and Treatment] [CONS] Routine Please Evaluate and Treat. OT Reason for Consult: Strengthening This query below is only for informational purposes and is not editable. Admission Diagnosis/Problem: Pneumonia Consult to Physical Therapy [PT Evaluation and Treatment] [CONS] Routine Please Evaluate and Treat. PT Reason for Consult: Strengthening This query below is only for informational purposes and is not editable. Admission Diagnosis/Problem: Pneumonia - Patient Instructions Diet: Regular Diet as Tolerated Driving: May Drive Today Showering/Bathing: May Shower Notify Provider of: Fever, Increased Pain Other/Special Instructions: 1. Recheck with Dr. Ostmo in 7-10 days with CBC and BMP. 2. Home health to manage medications, teaching of disease management, home safety. Metipranolol has been increased dose so watch for hypotension and bradycardia. - Discharge Plan Prescriptions/Med Rec: Levofloxacin [Levaquin] 750 mg PO Q24H #6 tablet Metoprolol Tartrate [Lopressor] 100 mg PO BID #30 tablet Home Medications: Home Meds Digoxin [Digox] 125 mcg PO DAILY 10/13/13 [History] Simvastatin 5 mg PO DAILY 10/13/13 [History] Albuterol Sulfate [Proair Hfa] 2 puff IH Q4HR PRN 03/23/17 [History] Aspirin 81 mg PO DAILY 03/23/17 [History] Budesonide/Formoterol [Symbicort 80-4.5 MCG] 2 puff INH BID 03/23/17 [History] Potassium Chloride 8 meq PO DAILY 03/23/17 [History] Warfarin Sodium [Jantoven] 5 mg PO SUTUTHSA 03/23/17 [History] Warfarin [Coumadin] 2.5 mg PO MOWEFR 03/23/17 [History] ALPRAZolam [Xanax] 1 mg PO TID 03/27/17 [History] Levofloxacin [Levaquin] 750 mg PO Q24H #6 tablet 03/29/17 [Rx] Metoprolol Tartrate [Lopressor] 100 mg PO BID #30 tablet 03/29/17 [Rx] Patient Handouts: Atelectasis, Adult, Fall Prevention in Hospitals, Adult, Venous Thromboembolism Prevention, Community-Acquired Pneumonia, Adult, Easy-to- Read Forms: ED Department Discharge Referrals: Huber Lorenzo MD [Primary Care Provider] - - Discharge Summary/Plan Comment DC Time >30 min.: No - Patient Data Vitals - Most Recent: Last Vital Signs Temp 98.1 F 03/29/17 00:00 Pulse 88 03/29/17 00:00 Resp 20 03/29/17 00:00 BP 158/69 H 03/29/17 00:00 Pulse Ox 92 L 03/29/17 00:00 Weight - Most Recent: 161 lb 8 oz I&O - Last 24 hours: Intake & Output 03/28/17 03/29/17 03/29/17 22:59 06:59 14:59 Intake Total 150 Output Total 1 525 Balance 149 -525 Lab Results - Last 24 hrs: Laboratory Results - last 24 hr 03/28/17 03/29/17 03/29/17 Range/Units 15:05 06:22 06:22 PT 19.8 H (8.7-11.1) INR 1.93 H (0.89-1.13) Sodium 137 (135-145) mmol/L Potassium 3.5 (3.5-5.3) mmol/L Chloride 102 (100-110) mmol/L Carbon Dioxide 26 (23-29) mmol/L BUN 10 (8-23) mg/dL Creatinine 0.7 (0.6-1.3) mg/dL Est Cr Clr Drug Dosing 59.96 mL/min Estimated GFR (MDRD) > 60 (>60) BUN/Creatinine Ratio 14.3 (9-20) Glucose 100 (80-116) mg/dL Calcium 7.8 L (8.6-10.2) mg/dL Digoxin 0.8 (0.8-2.0) ng/mL Med Orders - Current: Current Medications Acetaminophen (Tylenol) 650 mg PO Q4H PRN PRN Reason: Pain (Mild 1-3)/fever Last Admin: 03/26/17 02:13 Dose: 650 mg Albuterol (Ventolin Hfa) 0 gm INH Q4H PRN PRN Reason: Wheezing Last Admin: 03/26/17 02:10 Dose: 2 puff Alprazolam (Xanax) 1 mg PO TID [facility] Last Admin: 03/28/17 21:03 Dose: 1 mg Aspirin (Halfprin) 81 mg PO DAILY [facility] Last Admin: 03/28/17 08:09 Dose: 81 mg Clotrimazole (Clotrimazole 1%) 0 gm TOP BID [facility] Last Admin: 03/28/17 21:00 Dose: Not Given Digoxin (Lanoxin) 125 mcg PO DAILY [facility] Last Admin: 03/28/17 08:12 Dose: 125 mcg Digoxin (Lanoxin) 250 mcg PO DAILY [facility] Stop: 03/29/17 09:01 Last Admin: 03/28/17 18:02 Dose: 250 mcg Levofloxacin 500 mg/ (Levofloxacin 250 mg) 750 mg PO Q24H [facility] Last Admin: 03/28/17 08:08 Dose: 750 mg Metoprolol Tartrate (Lopressor) 100 mg PO BID [facility] Last Admin: 03/28/17 20:59 Dose: 100 mg Mometasone Furoate/Formoterol Fumar (Dulera 100-5 Mcg) 2 puff IH BIDRT [facility] Last Admin: 03/29/17 06:50 Dose: 2 puff Ondansetron HCl (Zofran Odt) 4 mg PO Q4H PRN PRN Reason: nausea, able to take PO Ondansetron HCl (Zofran) 4 mg IV Q4H PRN PRN Reason: Nausea/Vomiting Last Admin: 03/26/17 12:32 Dose: 4 mg Potassium Chloride (Klor-Con M20) 20 meq PO BID [facility] Last Admin: 03/28/17 20:58 Dose: 20 meq Saccharomyces Boulardii (Florastor) 250 mg PO BID [facility] Last Admin: 03/28/17 20:58 Dose: 250 mg Senna/Docusate Sodium (Senna Plus) 1 tab PO BID PRN PRN Reason: Constipation Simvastatin (Zocor) 5 mg PO DAILY [facility] Last Admin: 03/28/17 08:14 Dose: 5 mg Sodium Chloride (Saline Flush) 10 ml FLUSH ASDIRECTED PRN PRN Reason: Keep Vein Open Last Admin: 03/26/17 21:22 Dose: 10 ml Warfarin Sodium (Coumadin Sliding Scale) 0 each PO ASDIRECTED [facility] Warfarin Sodium (Coumadin) 5 mg PO 1600 [facility] Stop: 03/29/17 22:30 Discontinued Medications Albuterol/Ipratropium (Duoneb 3.0-0.5 Mg/3 Ml) 3 ml NEB QIDRT [facility] Last Admin: 03/26/17 10:40 Dose: 3 ml Alprazolam (Xanax) 1 mg PO TID [facility] Last Admin: 03/25/17 21:36 Dose: 1 mg Alprazolam (Xanax) 1 mg PO TID [facility] Last Admin: 03/26/17 08:28 Dose: 1 mg Alprazolam (Xanax) 1 mg PO TID [facility] Aspirin (Aspirin) 243 mg PO ONETIME ONE Stop: 03/26/17 12:46 Last Admin: 03/26/17 12:23 Dose: 243 mg Levofloxacin/Dextrose 750 mg/ (Premix) 150 mls @ 100 mls/hr IV Q48H [facility] Last Admin: 03/23/17 18:03 Dose: 100 mls/hr Sodium Chloride (Normal Saline) 1,000 mls @ 100 mls/hr IV ASDIRECTED [facility] Last Admin: 03/26/17 06:38 Dose: 100 mls/hr Lactated Ringer's (Ringers, Lactated) 1,000 mls @ 125 mls/hr IV .BOLUS [facility] Stop: 03/24/17 02:00 Nitroglycerin/Dextrose (Nitroglycerin 25 Mg/D5w 250 Ml) 25 mg in 250 mls @ 3 mls/hr IV TITRATE [facility]; 5 MCG/MIN PRN Reason: Protocol Last Titration: 03/26/17 13:52 Dose: 10 mcg/min, 6 mls/hr Sodium Chloride (Normal Saline) 250 mls @ 30 mls/hr IV ASDIRECTED [facility] Last Admin: 03/27/17 06:26 Dose: 30 mls/hr Lorazepam (Ativan) 0.5 mg IVPUSH ONETIME ONE Stop: 03/26/17 12:27 Last Admin: 03/26/17 12:35 Dose: 0.5 mg Lorazepam (Ativan) 1 mg IVPUSH Q8H [facility] Last Admin: 03/27/17 06:23 Dose: 1 mg Lorazepam (Ativan) 1 mg PO TID [facility] Last Admin: 03/27/17 08:25 Dose: 1 mg Metoprolol Tartrate (Lopressor) 50 mg PO BID [facility] Last Admin: 03/26/17 09:06 Dose: 50 mg Metoprolol Tartrate (Lopressor) 5 mg IVPUSH ONETIME ONE Stop: 03/26/17 12:14 Last Admin: 03/26/17 12:21 Dose: 5 mg Metoprolol Tartrate (Lopressor) 5 mg IVPUSH ONETIME ONE Stop: 03/26/17 12:46 Last Admin: 03/26/17 12:53 Dose: 5 mg Metoprolol Tartrate (Lopressor) 100 mg PO BID [facility] Last Admin: 03/26/17 21:08 Dose: 100 mg Mometasone Furoate/Formoterol Fumar (Dulera 100-5 Mcg) 2 puff IH BIDRT [facility] Last Admin: 03/24/17 06:38 Dose: 2 puff Potassium Chloride (Klor-Con 8) 8 meq PO DAILY [facility] Last Admin: 03/27/17 08:17 Dose: 8 meq Potassium Chloride (Klor-Con 8) 8 meq PO TID [facility] Last Admin: 03/27/17 20:50 Dose: 8 meq Prednisone (Prednisone) 40 mg PO WITHBREAKFAST [facility] Last Admin: 03/25/17 08:29 Dose: 40 mg Warfarin Sodium (Coumadin) 5 mg PO DAILY@1600 [facility] Warfarin Sodium (Coumadin) 5 mg PO 1600 [facility] Stop: 03/24/17 16:01 Last Admin: 03/24/17 16:16 Dose: 5 mg Warfarin Sodium (Coumadin) 2.5 mg PO 1600 [facility] Stop: 03/25/17 16:01 Last Admin: 03/25/17 16:34 Dose: 2.5 mg Warfarin Sodium (Coumadin) 2.5 mg PO 1600 [facility] Stop: 03/28/17 20:00 Last Admin: 03/28/17 15:52 Dose: 2.5 mg *Q Meaningful Use (DIS) - VTE *Q VTE Criteria *Q: - Stroke *Q Stroke Criteria *Q: - AMI *Q AMI Criteria *Q:
[2017-03-29] MEDS: Aspirin 81 MG Tab.EC PO SCH (09:00)
[2017-03-29] MEDS: Saccharomyces Boulardii (Probiotic) 250 MG Cap PO SCH (09:00)
[2017-03-29] MEDS: Potassium Chloride 20 MEQ Tab.ER PO SCH (09:00)
[2017-03-29] MEDS: Metoprolol Tartrate 100 MG Tab PO SCH (09:03)
[2017-03-29] MEDS: Simvastatin 10 MG Tab PO SCH (09:04)
[2017-03-29] MEDS: ALPRAZolam 1 MG Tab PO SCH ×2 (09:13→13:41)
[2017-03-29] MEDS: Digoxin 250 MCG Tab PO SCH (12:30)
[2017-03-29] MEDS ORDERED: Warfarin 5 MG Tab PO SCH (16:00)
[2017-03-30] MEDS ORDERED: Digoxin 125 MCG Tab PO SCH (09:00)
== END 2017-03-29 18:00 | disposition home health service (06) | DRG 194 ==
LOC: FB.ED 15:17 → FB.MS 18:01 → FB.ICU 03-26 12:20 → FB.MS 03-27 12:23
PROVIDERS: ADMIT Emergency Medicine; ATTEND Family Medicine
DX: J18.1 Lobar pneumonia, unspecified organism (principal); J14 Pneumonia due to Hemophilus influenzae; E87.1 Hypo-osmolality and hyponatremia; F15.93 Other stimulant use, unspecified with withdrawal; I16.1 Hypertensive emergency; J44.9 Chronic obstructive pulmonary disease, unspecified; I10 Essential (primary) hypertension; R06.02 Shortness of breath; R05 Cough; R06.00 Dyspnea, unspecified; E87.8 Other disorders of electrolyte and fluid balance, not elsewhere classified; Z86.718 Personal history of other venous thrombosis and embolism; Z79.01 Long term (current) use of anticoagulants; I48.2 Chronic atrial fibrillation; Z51.5 Encounter for palliative care; R09.02 Hypoxemia; B37.2 Candidiasis of skin and nail; E87.6 Hypokalemia; Z95.1 Presence of aortocoronary bypass graft; Z95.3 Presence of xenogenic heart valve; E78.00 Pure hypercholesterolemia, unspecified; F41.9 Anxiety disorder, unspecified; R25.1 Tremor, unspecified; Z79.82 Long term (current) use of aspirin; Z88.5 Allergy status to narcotic agent; Z88.2 Allergy status to sulfonamides; Z88.8 Allergy status to other drugs, medicaments and biological substances
CPT/HCPCS: 36415; 71020; 80053; 83605; 85025; 85610; 87040 ×2; 87070; 87205; 99284; J7040; 71010; 80048; 80162; 82962; 84484; 85018; 85027; 93005; 94150; 94640; 96365; 97161-GP; 99285; A9270-GY; J1956; J2060; J2405; J3490; J7050; J7620

== ENCOUNTER 2018-08-06 15:36 | Emergency (ER) | payer MEDICARE ==
--- NOTE | 2018-08-06 17:42 | EDM.PDOC ---
ED HPI GENERAL MEDICAL PROBLEM - General Stated Complaint: FELL-INJURED RT FOOT Time Seen by Provider: 08/06/18 15:55 Source of Information: Reports: Patient, Family History Limitations: Reports: No Limitations - History of Present Illness INITIAL COMMENTS - FREE TEXT/NARRATIVE: c/o R ankle pain pt with her [id number], had exited the car and slipped on ice, falling, did not strike her ankle against the car or curb, has pain above and lateral to the joint line, pain is minimal, declined pain meds several times, tolerating posterior splint without difficult h/o prior contusions to R ankle, no prior fx's, no prior sprains on warfarin for afib dtr-in-law lives in 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, was returning back from an appointment in [place] with her surgeon when she fell pt medically stable and doing well right ankle Pain Score (Numeric/FACES): 3 - Related Data Allergies Allergy/AdvReac Type Severity Reaction Status Date / Time meperidine HCl [From Demerol] Allergy Tachycardia Verified 03/23/17 18:12 nystatin Allergy Rash Verified 03/23/17 18:12 propranolol HCl Allergy Tachycardia Verified 03/23/17 18:12 [From Inderal LA] Sulfa (Sulfonamide Allergy flu like Verified 03/23/17 18:12 Antibiotics) symptoms Home Meds: Home Meds Digoxin [Digox] 125 mcg PO DAILY 10/13/13 [History] Simvastatin 5 mg PO DAILY 10/13/13 [History] Albuterol Sulfate [Proair Hfa] 2 puff IH Q4HR PRN 03/23/17 [History] Aspirin 81 mg PO DAILY 03/23/17 [History] Budesonide/Formoterol [Symbicort 80-4.5 MCG] 2 puff INH BID 03/23/17 [History] Potassium Chloride 8 meq PO DAILY 03/23/17 [History] Warfarin Sodium [Jantoven] 5 mg PO SUTUTHSA 03/23/17 [History] Warfarin [Coumadin] 2.5 mg PO MOWEFR 03/23/17 [History] ALPRAZolam [Xanax] 1 mg PO TID 03/27/17 [History] Levofloxacin [Levaquin] 750 mg PO Q24H #6 tablet 03/29/17 [Rx] Metoprolol Tartrate [Lopressor] 100 mg PO BID #30 tablet 03/29/17 [Rx] Past Medical History HEENT History: Reports: Cataract Cardiovascular History: Reports: Arrhythmia, Blood Clots/VTE/DVT, High Cholesterol, Hypertension Respiratory History: Reports: Asthma, COPD PROPOSAL ENGINEER History: Reports: Neurological History: Reports: Other (See Below) Other Neuro History: tremors Psychiatric History: Reports: Anxiety - Past Surgical History HEENT Surgical History: Reports: Cataract Surgery, Other (See Below) Other HEENT Surgeries/Procedures: surgery right ear Cardiovascular Surgical History: Reports: Coronary Artery Bypass GI Surgical History: Reports: Appendectomy, Cholecystectomy, Other (See Below) Other GI Surgeries/Procedures: Had feeding tube for 1 1/2 years after bypass surgery in 2013 due to inability to swallow Female Surgical History: Reports: Hysterectomy Social & Family History - Family History Family Medical History: Noncontributory - Tobacco Use Smoking Status *Q: Never Smoker - Caffeine Use Caffeine Use: Reports: None - Recreational Drug Use Recreational Drug Use: No Review of Systems - Review of Systems Review Of Systems: See Below Constitutional: Reports: No Symptoms Eyes: Reports: No Symptoms Ears: Reports: No Symptoms Nose: Reports: No Symptoms Mouth/Throat: Reports: No Symptoms Respiratory: Reports: No Symptoms Cardiovascular: Reports: No Symptoms GI/Abdominal: Reports: No Symptoms Genitourinary: Reports: No Symptoms Musculoskeletal: Reports: Joint Pain Skin: Reports: No Symptoms Neurological: Reports: No Symptoms Psychiatric: Reports: No Symptoms ED EXAM, GENERAL - Physical Exam Exam: See Below Exam Limited By: No Limitations General Appearance: Alert, WD/WN Ears: Other (dry dressing inside pinna of R ear) Nose: Normal Inspection, Normal Mucosa, No Blood Throat/Mouth: Normal Inspection, Normal Voice, No Airway Compromise Head: Atraumatic, Normocephalic Neck: Normal Inspection, Supple, Non-Tender, Full Range of Motion. No: Lymphadenopathy (L), Tender Midline Respiratory/Chest: No Respiratory Distress Cardiovascular: Regular Rate, Rhythm GI/Abdominal: Soft, Non-Tender Back Exam: Normal Inspection. No: CVA Tenderness (R), CVA Tenderness (L) Extremities: Normal Capillary Refill (1+ DP pulse b/l, m/s intact), Other (inc' d pigment at distal LEs b/l c/w VSD, 1+ edema of R ankle joint line and distal RLE up 20%, skin intact, no ecchymosis at ankle, very little tender anywhere at RLE/ankle/foot) Neurological: Alert, Oriented, CN II-XII Intact, Normal Cognition, No Motor/ Sensory Deficits Psychiatric: Normal Affect, Normal Mood Skin Exam: Warm, Dry, Intact, No Rash Lymphatic: No Adenopathy Course - Vital Signs Last Recorded V/S: Last Vital Signs Temp 36.8 C 08/06/18 15:36 Pulse 72 08/06/18 15:36 Resp 18 08/06/18 15:36 BP 165/74 H 08/06/18 15:36 Pulse Ox 93 L 08/06/18 15:36 - Orders/Labs/Meds Orders: Active Orders 24 hr Category Date Time Status Ankle Min 3V Rt [CR] Stat Exams 08/06/18 16:05 Ordered - Re-Assessments/Exams Free Text/Narrative Re-Assessment/Exam: 08/06/18 17:50 images shown to dtr-in-law who photographed them XR with a mildly displace fx of distal fibula 10 cm above joint line, medial malleolus with a horizontal fx, good alignment at ankle altho unstable Dr Pfeiffer gave instructions, pt and family agree Departure - Departure Time of Disposition: 17:37 Disposition: Home, Self-Care 01 Condition: Good Clinical Impression: Bimalleolar fracture of right ankle Qualifiers: Encounter type: initial encounter Fracture type: closed Qualified Code(s): S82.841A - Displaced bimalleolar fracture of right lower leg, initial encounter for closed fracture High ankle sprain of right lower extremity Qualifiers: Encounter type: initial encounter Qualified Code(s): S93.431A - Sprain of tibiofibular ligament of right ankle, initial encounter - Discharge Information *PRESCRIPTION DRUG MONITORING PROGRAM REVIEWED*: Not Applicable *COPY OF PRESCRIPTION DRUG MONITORING REPORT IN PATIENT ISHAAN: Not Applicable Instructions: Ankle Fracture, Cast or Splint Care, Adult Referrals: Carolina Knox, FURNITURE ASSEMBLY SUPERVISOR [Primary Care Provider] - Additional Instructions: For pain and inflammation, if needed, take acetaminophen 500 mg 2 tabs 4 times a day. Stop the warfarin. Do not take ibuprofen or naproxen or other NSAIDs. See your doctor tomorrow for pre-op surgery clearance. See Dr Pfeiffer in 5 days for surgery, as per instructions from his office. Rest your leg for 3 hours tonight to allow the fiberglass to harden. Elevate your heel as high as your heart for 30 minutes 2 times a day to keep the swelling down. No weight bearing. Use a wheelchair and bedside commode as needed. Limit activities. Be very careful when transferring into and out of the wheelchair. Get assistance as needed. Call your Physician or Return to Emergency Department if: * Your condition worsens in any way. * You develop fever greater than 100.4. * You have vomitting that does not stop with medications. * You have pain that is not controlled with medications. - My Orders Last 24 Hours: My Active Orders 08/06/18 16:05 Ankle Min 3V Rt [CR] Stat - Assessment/Plan Last 24 Hours: My Active Orders 08/06/18 16:05 Ankle Min 3V Rt [CR] Stat
== END 2018-08-06 18:00 | disposition home or self-care (01) ==
LOC: FB.ED 15:36
DX: S82.841A Displaced bimalleolar fracture of right lower leg, initial encounter for closed fracture (principal); J44.9 Chronic obstructive pulmonary disease, unspecified; E78.00 Pure hypercholesterolemia, unspecified; I10 Essential (primary) hypertension; Z88.8 Allergy status to other drugs, medicaments and biological substances; Z79.899 Other long term (current) drug therapy; Z79.82 Long term (current) use of aspirin; Z79.01 Long term (current) use of anticoagulants; W00.0XXA Fall on same level due to ice and snow, initial encounter
CPT/HCPCS: 29515; 73610-RT; 99283-25; 99284

== ENCOUNTER 2018-08-11 07:24 | Inpatient (IN) | payer MEDICARE ==
[2018-08-11] MEDS: Lactated Ringers 1,000 ML IV SCH ×2 (09:34→16:07)
[2018-08-11] MEDS ORDERED: ceFAZolin 2 GM in Premix Bag 1 BAG IV ONE (10:00)
[2018-08-11] MEDS ORDERED: Bupivacaine 0.5% 30 ML SDV INJECT ONE (10:26)
[2018-08-11] MEDS ORDERED: Lactated Ringers 1,000 ML IV ONE (10:29)
[2018-08-11] MEDS ORDERED: Propofol 200 MG/20 ML SDV IV ONE (10:29)
[2018-08-11] MEDS ORDERED: Dexmedetomidine 200 MCG/2 ML SDV IV ONE (10:29)
[2018-08-11] MEDS ORDERED: Ketorolac 30 MG/ML SDV IVPUSH ONE (10:29)
[2018-08-11] MEDS ORDERED: EPINEPHrine 1 MG/ML SDV IV ONE (10:29)
[2018-08-11] MEDS ORDERED: Midazolam 1 MG/ML 2 ML SDV IV ONE (10:29)
[2018-08-11] MEDS ORDERED: fentaNYL 100 MCG/2 ML SDV IV ONE (10:29)
[2018-08-11] MEDS ORDERED: Docusate Sodium 100 MG Cap PO PRN (11:31)
[2018-08-11] MEDS ORDERED: Morphine 2 MG/ML Syringe IVPUSH PRN (11:31)
[2018-08-11] MEDS ORDERED: Magnesium Hydroxide 400 MG/5 ML Susp 30 ML Cup PO PRN (11:31)
[2018-08-11] MEDS ORDERED: Albuterol 8 GM Inhaler INH PRN (11:35)
[2018-08-11] MEDS ORDERED: Albuterol/Ipratropium 3.0-0.5 MG/3 ML Neb Soln INH PRN (11:35)
--- NOTE | 2018-08-11 11:58 | CR ---
INDICATION: Right ankle ORIF. C-ARM FLUOROSCOPY IN OR, LESS THAN 1 HOUR: 0.1 minutes C-arm fluoroscopy time in OR was utilized during ORIF of bimalleolar fracture sites. A plate with 6 screws fixes the fibular fracture fragments in adequate position and alignment with the medial malleolar fracture fragments fixed in place by a plate with 3 screws. The ankle mortise appears to be fairly intact on the final images. A definite complicating process was not identified. TREVERD
--- NOTE | 2018-08-11 13:20 | PCM.OPNOTE ---
- General Post-Op/Procedure Note Date of Surgery/Procedure: 08/11/18 Operative Procedure(s): orif bimalleolar fracture right ankle Pre Op Diagnosis: bimalleolar ankle fracture closed Post-Op Diagnosis: same Anesthesia Technique: Regional Block Primary Surgeon: Farzad Pfeiffer Anesthesia Provider: Carmen Bowser EBL in mLs: 25 Complications: none Condition: Good
--- NOTE | 2018-08-11 14:09 | OR ---
DATE OF OPERATION: 08/11/2018 SURGEON: Farzad Pfeiffer DO PREOPERATIVE DIAGNOSIS: Right ankle bimalleolar fracture, closed. POSTOPERATIVE DIAGNOSIS: Right ankle bimalleolar fracture, closed. PROCEDURE: Right ankle ORIF, bimalleolar. METER READING CLERK: Daylin Acosta NP Physician engineer second assistant, Daylin Acosta NP, played an essential role in assisting in this case, helping to position the patient, retract structures as needed, as well as suturing and cutting sutures as indicated. Her presence improved patient's safety and decreased operative time. ANESTHESIA: Spinal plus conscious sedation. FLUID: Lactated Ringer's solution. ESTIMATED BLOOD LOSS: Less than 25 mL. COMPLICATIONS: None. SPECIMEN: None. DISCHARGE DISPOSITION: Stable to PACU. HISTORY AND INDICATIONS FOR PROCEDURE: The patient was seen last Friday. She had fallen and broke her right ankle. She was seen in the emergency department, where the above-mentioned diagnosis was confirmed. She is on Coumadin, so her Coumadin was held. She had a history and physical by her family provider, Jessie Fuchs NP. The risks and benefits of the procedure were explained to the patient. Informed consent was obtained. DETAILS OF PROCEDURE: The patient was seen preoperatively by myself and the Anesthesia staff in the preoperative holding area, where the operative site was marked. She was brought to the operative suite by the anesthesia staff, where spinal sedation was administered plus conscious sedation. All extremities were found to be well padded. A well-padded tourniquet was placed on the right thigh. A time-out was called identifying the correct patient, the correct procedure, the correct site, and that antibiotics had been begun within appropriate period of time. The right lower extremity was exsanguinated. Tourniquet was raised to 250 mmHg for 44 minutes and then let down after closing. An incision was made over the fibula distally approximately 12 cm. The midportion of the fracture was identified and cleaned up using irrigation, as well as a 15 blade and periosteal elevator. This was done in a blunt manner directly over the bone. The superficial peroneal nerve was not identified. I did try lag screw fixation, but due to the short obliquity of it, this was not possible. We then placed a 6- hole plate, which provided good apposition. After that plate was placed, we then irrigated and then focused on our medial incision. After confirming good placement of the screw and plate on fluoroscopy, I identified the tip of the medial malleolus and then extended the incision approximately 10 cm proximally. I identified the fracture site and then cleaned that up with pickups and irrigation, as well as a 15 blade. I then applied a Synthes hook plate and then placed my 3 screws. This provided excellent fixation. I took my final AP and lateral films, showing good alignment of our fracture fragments, as well as good position of our instrumentation. We then irrigated with Betadine-soaked irrigation again and then closed medially and laterally with #1 Stratafix, skin dahlia, Betadine-soaked irrigation, and a sterile dressing. She was then placed into a Cam Walker boot and taken to the PACU in stable condition. /[id number] 1230 IRA/ROSANA
--- NOTE | 2018-08-11 14:45 | PCM.CONSN ---
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 Patient is s/p ORIF of the right ankle done early today. she denies any chest pain, SOB, or lower extremities pain. - Review of Systems General: Reports: Weakness HEENT: Reports: No Symptoms Pulmonary: Reports: No Symptoms Cardiovascular: Reports: No Symptoms Gastrointestinal: Reports: No Symptoms Genitourinary: Reports: No Symptoms Musculoskeletal: Reports: Foot Pain Skin: Reports: No Symptoms Neurological: Reports: No Symptoms Psychiatric: Reports: No Symptoms - Patient Data Vitals - Most Recent: Last Vital Signs Temp 36.3 C 08/11/18 12:26 Pulse 76 08/11/18 12:26 Resp 16 08/11/18 12:26 BP 120/56 L 08/11/18 12:26 Pulse Ox 95 08/11/18 12:26 Weight - Most Recent: 69.989 kg Lab Results Last 24 Hours: Laboratory Results - last 24 hr 08/11/18 Range/Units 08:08 PT 12.6 H (8.7-11.1) INR 1.30 H (0.89-1.13) Med Orders - Current: Current Medications Hydrocodone Bitart/Acetaminophen ([place] 325-5 Mg) 1 tab PO Q3H PRN PRN Reason: Pain Albuterol (Ventolin Hfa) 0 gm INH Q4H PRN PRN Reason: Wheezing Albuterol/Ipratropium (Duoneb 3.0-0.5 Mg/3 Ml) 3 ml INH Q4H PRN PRN Reason: Shortness of Breath Diltiazem HCl (Cardizem Cd) 120 mg PO DAILY [facility] Docusate Sodium (Colace) 100 mg PO BID PRN PRN Reason: Constipation Enoxaparin Sodium (Lovenox) 30 mg SUBCUT DAILY [facility] Escitalopram Oxalate (Lexapro) 10 mg PO DAILY [facility] Lactated Ringer's (Ringers, Lactated) 1,000 mls @ 125 mls/hr IV ASDIRECTED [facility] Last Admin: 08/11/18 09:34 Dose: 125 mls/hr Magnesium Hydroxide (Milk Of Magnesia) 30 ml PO BID PRN PRN Reason: Constipation Mometasone Furoate/Formoterol Fumar (Dulera 100-5 Mcg) [address] [facility] Morphine Sulfate (Morphine) 2 mg IVPUSH Q2H PRN PRN Reason: Pain Pantoprazole Sodium (Protonix) 40 mg PO DAILY@0600 [facility] Potassium Chloride (Klor-Con 8) 8 meq PO DAILY [facility] Simvastatin (Zocor) 5 mg PO DAILY [facility] Warfarin Sodium (Coumadin) 5 mg PO SUTUWETHFRSA [facility] Warfarin Sodium (Coumadin) 2.5 mg PO MO [facility] Discontinued Medications Bupivacaine HCl (Marcaine 0.5%) 10 ml INJECT .STK-MED ONE Stop: 08/11/18 10:27 Last Admin: 08/11/18 10:26 Dose: 10 ml Cefazolin Sodium/Dextrose 2 gm (/ Premix) 50 mls @ 100 mls/hr IV ONETIME ONE Stop: 08/11/18 10:29 Last Admin: 08/11/18 09:46 Dose: 100 mls/hr - Exam General: Alert, Oriented, Cooperative HEENT: Pupils Equal Neck: Supple Lungs: Clear to Auscultation, Normal Respiratory Effort Cardiovascular: Irregular Rhythm GI/Abdominal Exam: Normal Bowel Sounds, Soft, Non-Tender Back Exam: Other (s/p right ORIF ) Skin: Warm Psy/Mental Status: Alert, Normal Affect Consult PN Assessment/Plan Procedures: Procedures AIRWAY INHALATION TREATMENT (03/23/17) APPLICATION LOWER LEG SPLINT (08/06/18) ASSAY OF DIGOXIN TOTAL (03/23/17) ASSAY OF LACTIC ACID (03/23/17) ASSAY OF TROPONIN QUANT (03/23/17) BLOOD CULTURE FOR BACTERIA (03/23/17) CATARACT SURG W/IOL 1 STAGE (10/14/13) CATARACT SURGERY COMPLEX (11/18/13) CHEST X-RAY 1 VIEW FRONTAL (03/23/17) CHEST X-RAY 2VW FRONTAL&LATL (03/23/17) CINE/VID X-RAY THROAT/ESOPH (12/08/13) COMP SCREEN MAMMOGRAM ADD-ON (07/11/15) COMPLETE CBC AUTOMATED (03/23/17) COMPLETE CBC W/AUTO DIFF WBC (03/23/17) COMPREHEN METABOLIC PANEL (03/23/17) CT THORAX W/O & W/DYE (04/30/17) CULTURE OTHR SPECIMN AEROBIC (03/23/17) ELECTROCARDIOGRAM TRACING (03/23/17) EMERGENCY DEPT VISIT (08/06/18) EMERGENCY DEPT VISIT (03/23/17) EVALUATE SWALLOWING FUNCTION (10/03/17) GLUCOSE BLOOD TEST (03/23/17) HEMOGLOBIN (03/23/17) METABOLIC PANEL TOTAL CA (03/23/17) MOTION FLUOROSCOPY/SWALLOW (12/08/13) ORAL FUNCTION THERAPY (11/07/17) PROTHROMBIN TIME (03/23/17) PT EVAL LOW COMPLEX 20 MIN (03/23/17) ROUTINE VENIPUNCTURE (03/23/17) SCR MAMMO BI INCL CAD (07/21/17) SMEAR GRAM STAIN (03/23/17) THER/PROPH/DIAG IV INF INIT (03/23/17) VITAL CAPACITY TEST (03/23/17) X-RAY EXAM OF ANKLE (08/06/18) (1) CAD (coronary artery disease) SNOMED Code(s): 03222027 Code(s): I25.10 - ATHSCL HEART DISEASE OF [place] CORONARY ARTERY W/O ANG PCTRS Current Visit: Yes (2) Asthma SNOMED Code(s): 130999939 Code(s): J45.909 - UNSPECIFIED ASTHMA, UNCOMPLICATED Current Visit: No Comment: see above. (3) COPD (chronic obstructive pulmonary disease) SNOMED Code(s): 39776803 Code(s): J44.9 - CHRONIC OBSTRUCTIVE PULMONARY DISEASE, UNSPECIFIED Current Visit: No Comment: see above. Nebs. (4) Chronic anticoagulation SNOMED Code(s): 533507931 Code(s): Z79.01 - MCC (CURRENT) USE OF ANTICOAGULANTS Current Visit: No Comment: 2-3. Pharmacy to follow. Supratherapeutic today. (5) History of DVT (deep vein thrombosis) SNOMED Code(s): 843444233 Code(s): Z86.718 - PERSONAL HISTORY OF OTHER VENOUS THROMBOSIS AND EMBOLISM Current Visit: No (6) History of mitral valve replacement with bioprosthetic valve SNOMED Code(s): 829991458, 127578294, 1216929108319 Code(s): Z95.3 - PRESENCE OF XENOGENIC HEART VALVE Current Visit: No Comment: Stable. (7) Hyperlipidemia SNOMED Code(s): 58778425 Code(s): E78.5 - HYPERLIPIDEMIA, UNSPECIFIED Current Visit: No (8) Chronic atrial fibrillation SNOMED Code(s): 095788738 Code(s): I48.2 - CHRONIC ATRIAL FIBRILLATION Current Visit: No Comment: patient currently rate controlled and anticoagulated. We will increase metoprolol to 100 mg by mouth twice a day. This may be able to be decreased once patient is returned to baseline. (9) Hypertension SNOMED Code(s): 87223814 Code(s): I10 - ESSENTIAL (PRIMARY) HYPERTENSION Current Visit: No Comment : See above. Problem List Initiated/Reviewed/Updated: Yes My Orders Last 24 Hours: # Right ankle fracture s/p ORIF POD 0 - Pain management per ortho team - PT/OT ordered # CAD s/p CABC IN 2011 # HTN # HLD # A.fib, hx of DVT, Hx of mitral valve replacement - ECHO done in 10/2017 showed showed EF 60% and mitral bioprosthesis with mean gradient 6 mmHg. patient has upcoming appointment with pc tech - continue home medication of Zocor, Cardizem - Bridging with Lovenox. Rx to do warfarin # COPD # Asthma - Continue with Albuterol and Duoneb # Anxiety: continue home med Lexapro - reviewed patient's lab done on 08/07 which include CBC, BMP and EKG were wnl. will monitor clinically.
[2018-08-11] MEDS: Warfarin 5 MG Tab PO SCH (16:05)
[2018-08-11] MEDS: Acetaminophen/HYDROcodone 325-5 MG Tab PO PRN ×2 (16:39→20:45)
[2018-08-11] MEDS: ALPRAZolam 0.5 MG Tab PO SCH ×2 (17:33→20:41)
[2018-08-11] MEDS: ceFAZolin 1 GM Vial IVPUSH SCH (18:44)
[2018-08-11] MEDS: Formoterol/Mometasone 100-5 MCG 8.8 GM Inhaler IH SCH (20:40)
[2018-08-11] MEDS: Simvastatin 10 MG Tab PO SCH (20:41)
[2018-08-12] MEDS: Lactated Ringers 1,000 ML IV SCH (00:13)
[2018-08-12] MEDS: Acetaminophen/HYDROcodone 325-5 MG Tab PO PRN ×3 (00:21→17:16)
[2018-08-12] MEDS: ceFAZolin 1 GM Vial IVPUSH SCH (02:06)
[2018-08-12] MEDS: Pantoprazole 40 MG Tab.CR PO SCH (05:59)
[2018-08-12] MEDS: ALPRAZolam 0.5 MG Tab PO SCH ×3 (07:49→20:25)
[2018-08-12] MEDS ORDERED: Diltiazem 25 MG/5 ML SDV IVPUSH ONE (08:44)
--- NOTE | 2018-08-12 08:49 | PCM.PN ---
- General Info Date of Service: 08/12/18 Subjective Update: Doing well. Pain well controlled. Heart rate is in the 150's Functional Status: Reports: Pain Controlled - Review of Systems General: Reports: No Symptoms HEENT: Reports: No Symptoms Pulmonary: Reports: No Symptoms Cardiovascular: Reports: No Symptoms Gastrointestinal: Reports: No Symptoms - Patient Data Vitals - Most Recent: Last Vital Signs Temp 98.1 F 08/12/18 00:00 Pulse 141 H 08/12/18 07:04 Resp 20 08/12/18 07:04 BP 133/81 08/12/18 07:04 Pulse Ox 95 08/12/18 07:04 Weight - Most Recent: 69.989 kg I&O - Last 24 Hours: Intake & Output 08/11/18 08/12/18 08/12/18 22:59 06:59 14:59 Intake Total 983 Balance 983 Lab Results Last 24 Hours: Laboratory Results - last 24 hr 08/11/18 08/11/18 Range/Units 15:45 15:45 Plt Count 177 (125-369) X10(3)uL Creatinine 0.7 (0.55-1.02) mg/dL Est Cr Clr Drug Dosing 56.56 mL/min Estimated GFR (MDRD) > 60 (>60) Med Orders - Current: Current Medications Hydrocodone Bitart/Acetaminophen ([place] 325-5 Mg) 1 tab PO Q3H PRN PRN Reason: Pain Last Admin: 08/12/18 07:43 Dose: 1 tab Albuterol (Ventolin Hfa) 0 gm INH Q4H PRN PRN Reason: Wheezing Albuterol/Ipratropium (Duoneb 3.0-0.5 Mg/3 Ml) 3 ml INH Q4H PRN PRN Reason: Shortness of Breath Alprazolam (Xanax) 0.5 mg PO TID@0730,1230,2100 [facility] Last Admin: 08/12/18 07:49 Dose: 0.5 mg Aspirin (Aspirin) 81 mg PO DAILY [facility] Diltiazem HCl (Cardizem Cd) 120 mg PO DAILY [facility] Diltiazem HCl (Diltiazem) 10 mg IVPUSH ONETIME ONE Stop: 08/12/18 08:45 Docusate Sodium (Colace) 100 mg PO BID PRN PRN Reason: Constipation Enoxaparin Sodium (Lovenox) 30 mg SUBCUT DAILY [facility] Escitalopram Oxalate (Lexapro) 10 mg PO DAILY [facility] Magnesium Hydroxide (Milk Of Magnesia) 30 ml PO BID PRN PRN Reason: Constipation Metoprolol Tartrate (Lopressor) 100 mg PO BID [facility] Mometasone Furoate/Formoterol Fumar (Dulera 100-5 Mcg) 2 puff IH BID [facility] Last Admin: 08/11/18 20:40 Dose: 2 puff Morphine Sulfate (Morphine) 2 mg IVPUSH Q2H PRN PRN Reason: Pain Pantoprazole Sodium (Protonix) 40 mg PO DAILY@0600 [facility] Last Admin: 08/12/18 05:59 Dose: 40 mg Potassium Chloride (Klor-Con 8) 8 meq PO DAILY [facility] Simvastatin (Zocor) 5 mg PO BEDTIME [facility] Last Admin: 08/11/18 20:41 Dose: 5 mg Warfarin Sodium (Coumadin) 5 mg PO SuTuWeThFrSa@1600 [facility] Last Admin: 08/11/18 16:05 Dose: 5 mg Warfarin Sodium (Coumadin) 2.5 mg PO Mo@1600 [facility] Discontinued Medications Bupivacaine HCl (Marcaine 0.5%) 10 ml INJECT .STK-MED ONE Stop: 08/11/18 10:27 Last Admin: 08/11/18 10:26 Dose: 10 ml Cefazolin Sodium (Ancef) 1 gm IVPUSH Q8H [facility] Stop: 08/12/18 02:01 Last Admin: 08/12/18 02:06 Dose: 1 gm Cefazolin Sodium/Dextrose 2 gm (/ Premix) 50 mls @ 100 mls/hr IV ONETIME ONE Stop: 08/11/18 10:29 Last Admin: 08/11/18 09:46 Dose: 100 mls/hr Lactated Ringer's (Ringers, Lactated) 1,000 mls @ 125 mls/hr IV ASDIRECTED [facility] Last Admin: 08/12/18 00:13 Dose: 125 mls/hr - Exam General: Alert, Oriented HEENT: Pupils Equal Neck: Supple Lungs: Clear to Auscultation Cardiovascular: Irregular Rhythm, Tachycardia GI/Abdominal Exam: Normal Bowel Sounds Skin: Warm Psy/Mental Status: Alert, Anxious - Problem List & Annotations (1) Afib SNOMED Code(s): 80987587 Code(s): I48.91 - UNSPECIFIED ATRIAL FIBRILLATION Status: Acute Current Visit: Yes Qualifiers: Atrial fibrillation type: paroxysmal Qualified Code(s): I48.0 - Paroxysmal atrial fibrillation (2) History of ankle surgery SNOMED Code(s): 981904776 Code(s): Z98.890 - OTHER SPECIFIED POSTPROCEDURAL STATES Status: Acute Current Visit: Yes (3) CAD (coronary artery disease) SNOMED Code(s): 94341253 Code(s): I25.10 - ATHSCL HEART DISEASE OF [place] CORONARY ARTERY W/O ANG PCTRS Status: Acute Current Visit: Yes (4) Bimalleolar fracture of right ankle SNOMED Code(s): 684407937 Code(s): S82.841A - DISPLACED BIMALLEOLAR FRACTURE OF RIGHT LOWER LEG, INIT Status: Acute Current Visit: No Qualifiers: Encounter type: initial encounter Fracture type: closed Qualified Code(s) : S82.841A - Displaced bimalleolar fracture of right lower leg, initial encounter for closed fracture (5) Chronic anticoagulation SNOMED Code(s): 257749001 Code(s): Z79.01 - METHODS ANALYST (CURRENT) USE OF ANTICOAGULANTS Status: Acute Current Visit: No Annotation/Comment:: 2-3. Pharmacy to follow. Supratherapeutic today. (6) Mitral stenosis SNOMED Code(s): 75208483 Code(s): I05.0 - RHEUMATIC MITRAL STENOSIS Status: Acute Current Visit: No (7) Chronic atrial fibrillation SNOMED Code(s): 819200969 Code(s): I48.2 - CHRONIC ATRIAL FIBRILLATION Status: Chronic Current Visit: No (8) Hypertension SNOMED Code(s): 07124266 Code(s): I10 - ESSENTIAL (PRIMARY) HYPERTENSION Status: Chronic Current Visit: No Qualifiers: Hypertension type: essential hypertension Qualified Code(s): I10 - Essential (primary) hypertension Annotation/Comment:: See above. - Problem List Review Problem List Initiated/Reviewed/Updated: Yes - My Orders Last 24 Hours: My Active Orders 08/11/18 17:00 ALPRAZolam [Xanax] 0.5 mg PO TID@0730,1230,2100 08/12/18 08:44 Diltiazem 10 mg IVPUSH ONETIME ONE 08/12/18 09:00 Aspirin 81 mg PO DAILY Metoprolol Tartrate [Lopressor] 100 mg PO BID - Plan Plan:: Restart Metoprolol. ASA
[2018-08-12] MEDS: Diltiazem 120 MG Cap.CD PO SCH (08:50)
[2018-08-12] MEDS: Potassium Chloride 8 MEQ Tab.ER PO SCH (08:52)
[2018-08-12] MEDS: Escitalopram 10 MG Tab PO SCH (08:52)
[2018-08-12] MEDS: Enoxaparin 30 MG/0.3 ML Syringe SUBCUT SCH (08:53)
[2018-08-12] MEDS ORDERED: Sodium Chloride 0.9% 10 ML Syringe FLUSH PRN (09:00)
[2018-08-12] MEDS: Formoterol/Mometasone 100-5 MCG 8.8 GM Inhaler IH SCH ×2 (09:02→20:21)
[2018-08-12] MEDS: Aspirin 81 MG Tab.Chew PO SCH (09:04)
[2018-08-12] MEDS: Metoprolol Tartrate 100 MG Tab PO SCH ×2 (09:04→20:22)
--- NOTE | 2018-08-12 14:05 | PCM.PN ---
- General Info Date of Service: 08/12/18 Functional Status: Reports: Pain Controlled - Review of Systems General: Reports: No Symptoms HEENT: Reports: No Symptoms Pulmonary: Reports: No Symptoms Cardiovascular: Reports: No Symptoms Gastrointestinal: Reports: No Symptoms Genitourinary: Reports: No Symptoms Musculoskeletal: Reports: Joint Pain Skin: Reports: No Symptoms Neurological: Reports: No Symptoms Psychiatric: Reports: No Symptoms - Patient Data Vitals - Most Recent: Last Vital Signs Temp 98.1 F 08/12/18 00:00 Pulse 124 H 08/12/18 09:04 Resp 20 08/12/18 07:04 BP 133/81 08/12/18 09:04 Pulse Ox 95 08/12/18 07:04 Weight - Most Recent: 154 lb 4.8 oz I&O - Last 24 Hours: Intake & Output 08/11/18 08/12/18 08/12/18 22:59 06:59 14:59 Intake Total 983 Balance 983 Lab Results Last 24 Hours: Laboratory Results - last 24 hr 08/11/18 08/11/18 Range/Units 15:45 15:45 Plt Count 177 (125-369) X10(3)uL Creatinine 0.7 (0.55-1.02) mg/dL Est Cr Clr Drug Dosing 56.56 mL/min Estimated GFR (MDRD) > 60 (>60) Med Orders - Current: Current Medications Hydrocodone Bitart/Acetaminophen ([place] 325-5 Mg) 1 tab PO Q3H PRN PRN Reason: Pain Last Admin: 08/12/18 07:43 Dose: 1 tab Albuterol (Ventolin Hfa) 0 gm INH Q4H PRN PRN Reason: Wheezing Albuterol/Ipratropium (Duoneb 3.0-0.5 Mg/3 Ml) 3 ml INH Q4H PRN PRN Reason: Shortness of Breath Alprazolam (Xanax) 0.5 mg PO TID@0730,1230,2100 [facility] Last Admin: 08/12/18 12:39 Dose: 0.5 mg Aspirin (Aspirin) 81 mg PO DAILY [facility] Last Admin: 08/12/18 09:04 Dose: 81 mg Diltiazem HCl (Cardizem Cd) 120 mg PO DAILY [facility] Last Admin: 08/12/18 08:50 Dose: 120 mg Docusate Sodium (Colace) 100 mg PO BID PRN PRN Reason: Constipation Enoxaparin Sodium (Lovenox) 30 mg SUBCUT DAILY [facility] Last Admin: 08/12/18 08:53 Dose: 30 mg Escitalopram Oxalate (Lexapro) 10 mg PO DAILY [facility] Last Admin: 08/12/18 08:52 Dose: 10 mg Magnesium Hydroxide (Milk Of Magnesia) 30 ml PO BID PRN PRN Reason: Constipation Metoprolol Tartrate (Lopressor) 100 mg PO BID [facility] Last Admin: 08/12/18 09:04 Dose: 100 mg Mometasone Furoate/Formoterol Fumar (Dulera 100-5 Mcg) 2 puff IH BID [facility] Last Admin: 08/12/18 09:02 Dose: 2 puff Morphine Sulfate (Morphine) 2 mg IVPUSH Q2H PRN PRN Reason: Pain Pantoprazole Sodium (Protonix) 40 mg PO DAILY@0600 [facility] Last Admin: 08/12/18 05:59 Dose: 40 mg Potassium Chloride (Klor-Con 8) 8 meq PO DAILY [facility] Last Admin: 08/12/18 08:52 Dose: 8 meq Simvastatin (Zocor) 5 mg PO BEDTIME [facility] Last Admin: 08/11/18 20:41 Dose: 5 mg Sodium Chloride (Saline Flush) 10 ml FLUSH ASDIRECTED PRN PRN Reason: Keep Vein Open Last Admin: 08/12/18 09:08 Dose: 10 ml Warfarin Sodium (Coumadin) 5 mg PO SuTuWeThFrSa@1600 [facility] Last Admin: 08/11/18 16:05 Dose: 5 mg Warfarin Sodium (Coumadin) 2.5 mg PO Mo@1600 [facility] Discontinued Medications Bupivacaine HCl (Marcaine 0.5%) 10 ml INJECT .STK-MED ONE Stop: 08/11/18 10:27 Last Admin: 08/11/18 10:26 Dose: 10 ml Cefazolin Sodium (Ancef) 1 gm IVPUSH Q8H [facility] Stop: 08/12/18 02:01 Last Admin: 08/12/18 02:06 Dose: 1 gm Diltiazem HCl (Diltiazem) 10 mg IVPUSH ONETIME ONE Stop: 08/12/18 08:45 Cefazolin Sodium/Dextrose 2 gm (/ Premix) 50 mls @ 100 mls/hr IV ONETIME ONE Stop: 08/11/18 10:29 Last Admin: 08/11/18 09:46 Dose: 100 mls/hr Lactated Ringer's (Ringers, Lactated) 1,000 mls @ 125 mls/hr IV ASDIRECTED [facility] Last Admin: 08/12/18 00:13 Dose: 125 mls/hr - Exam General: Oriented, Cooperative, No Acute Distress HEENT: Pupils Equal, Pupils Reactive, EOMI, Mucous Membr. Moist/[place] Neck: Supple, Trachea Midline Lungs: Normal Respiratory Effort Extremities: Leg Pain, Limited Range of Motion Peripheral Pulses: 1+: Dorsalis Pedis (R) Skin: Warm, Dry, Intact Wound/Incisions: Healing Well, Dressing Dry and Intact, No Drainage Neurological: No New Focal Deficit Psy/Mental Status: Alert, Normal Affect, Normal Mood - Problem List & Annotations (1) Bimalleolar fracture of right ankle SNOMED Code(s): 691890298 Code(s): S82.841A - DISPLACED BIMALLEOLAR FRACTURE OF RIGHT LOWER LEG, INIT Status: Acute Current Visit: No Qualifiers: Encounter type: subsequent encounter Fracture type: closed Fracture healing: with routine healing Qualified Code(s): S82.841D - Displaced bimalleolar fracture of right lower leg, subsequent encounter for closed fracture with routine healing - Problem List Review Problem List Initiated/Reviewed/Updated: Yes - My Orders Last 24 Hours: My Active Orders 08/11/18 15:00 OT Evaluation and Treatment [CONS] Routine PT Evaluation and Treatment [CONS] Routine 08/11/18 16:00 Warfarin [Coumadin] 5 mg PO SuTuWeThFrSa@1600 08/11/18 21:00 Mometasone/Formoterol [Dulera 100-5 MCG] 2 puff IH BID Simvastatin [Zocor] 5 mg PO BEDTIME 08/12/18 06:00 Pantoprazole [ProTONIX] 40 mg PO DAILY@0600 08/12/18 08:29 Convert IV to Saline Lock [OM.PC] Routine 08/12/18 09:00 Diltiazem [Cardizem CD] 120 mg PO DAILY Enoxaparin [Lovenox] 30 mg SUBCUT DAILY Escitalopram [Lexapro] 10 mg PO DAILY Potassium Chloride [Klor-Con 8] 8 meq PO DAILY 08/12/18 Breakfast Regular Diet [DIET] 08/17/18 16:00 Warfarin [Coumadin] 2.5 mg PO Mo@1600 - Plan Plan:: A: 78 yo female with afib, spasmadic torticollis, nwb, tremors, POD 1 right orif ankle P: Bridge with lovenox until INR therapeutic, NWB RLE, pain control, plan to DC to [facility]CF
[2018-08-12] MEDS: Warfarin 5 MG Tab PO SCH (16:04)
[2018-08-12] MEDS: Bacitracin Oint 28.35 GM Tube TOP SCH ×2 (17:17→20:21)
[2018-08-12] MEDS: Simvastatin 10 MG Tab PO SCH (20:26)
[2018-08-13] MEDS: Pantoprazole 40 MG Tab.CR PO SCH (06:05)
[2018-08-13] MEDS: ALPRAZolam 0.5 MG Tab PO SCH (08:08)
[2018-08-13] MEDS: Bacitracin Oint 28.35 GM Tube TOP SCH (08:17)
[2018-08-13] MEDS: Aspirin 81 MG Tab.Chew PO SCH (08:17)
[2018-08-13] MEDS: Potassium Chloride 8 MEQ Tab.ER PO SCH (08:18)
[2018-08-13] MEDS: Formoterol/Mometasone 100-5 MCG 8.8 GM Inhaler IH SCH (08:18)
[2018-08-13] MEDS: Diltiazem 120 MG Cap.CD PO SCH (08:18)
[2018-08-13] MEDS: Escitalopram 10 MG Tab PO SCH (08:19)
[2018-08-13] MEDS: Enoxaparin 30 MG/0.3 ML Syringe SUBCUT SCH (08:20)
[2018-08-13] MEDS: Metoprolol Tartrate 100 MG Tab PO SCH (08:20)
--- NOTE | 2018-08-13 10:11 | PCM.DCSUM1 ---
Discharge Summary - Hospital Course HPI Initial Comments: 78 yo female s/p right ankle orif Diagnosis: Stroke: No - Discharge Data Discharge Date: 08/13/18 Discharge Disposition: DC/Tfer W/I Hosp To Swing 61 Condition: Good - Discharge Diagnosis/Problem(s) (1) Bimalleolar fracture of right ankle SNOMED Code(s): 916506365 ICD Code: S82.841A - DISPLACED BIMALLEOLAR FRACTURE OF RIGHT LOWER LEG, INIT Status: Acute Current Visit: No Qualifiers: Encounter type: subsequent encounter Fracture type: closed Fracture healing: with routine healing Qualified Code(s): S82.841D - Displaced bimalleolar fracture of right lower leg, subsequent encounter for closed fracture with routine healing - Patient Summary/Data Operative Procedure(s) Performed: orif bimalleolar fracture right ankle Complications: none Consults: Consultations 08/11/18 11:31 Consult to Physician [CONS] Routine Consulting Provider: Cullen Jay Call Completed to Consulting Physician: rachelle 08/11/18 15:00 OT Evaluation and Treatment [CONS] Routine Please Evaluate and Treat. OT Reason for Consult: Strengthening This query below is only for informational purposes and is not editable. Admission Diagnosis/Problem: Ankle fracture PT Evaluation and Treatment [CONS] Routine Please Evaluate and Treat. PT Reason for Consult: Strengthening This query below is only for informational purposes and is not editable. Admission Diagnosis/Problem: Ankle fracture Recommended Follow-up Testing/Procedures: 2 weeks in orthopedic clinic Hospital Course: kept post operatively for pain control, pt/ot, dvt prophylaxis, coumadin bridging, care for spasmodic torticollis - Patient Instructions Diet: Usual Diet as Tolerated Activity: Apply Ice, Non Weight Bearing Activity, Other: nwb rle Driving: Do Not Drive Showering/Bathing: May Shower in 3 Days Wound/Incision Care: Keep Operative Site/Wound Site Clean and Dry Wound/Incision, Other: change friday, change eod Notify Provider of: Fever, Increased Pain, Swelling and Redness, Drainage, Nausea and/or Vomiting - Discharge Plan *PRESCRIPTION DRUG MONITORING PROGRAM REVIEWED*: Not Applicable *COPY OF PRESCRIPTION DRUG MONITORING REPORT IN PATIENT ISHAAN: Not Applicable Prescriptions/Med Rec: Acetaminophen/HYDROcodone [[place] 325-5 MG] 1 tab PO Q6HR PRN #56 tablet PRN Reason: Pain Home Medications: Home Meds Simvastatin 5 mg PO DAILY 10/13/13 [History] Albuterol Sulfate [Proair Hfa] 2 puff IH Q4HR PRN 03/23/17 [History] Aspirin 81 mg PO DAILY 03/23/17 [History] Potassium Chloride 8 meq PO DAILY 03/23/17 [History] Warfarin Sodium [Jantoven] 5 mg PO SUTUWETHFRSA 03/23/17 [History] Warfarin [Coumadin] 2.5 mg PO MO 03/23/17 [History] ALPRAZolam [Xanax] 0.5 mg PO TID 03/27/17 [History] Metoprolol Tartrate [Lopressor] 100 mg PO BID #30 tablet 03/29/17 [Rx] Albuterol/Ipratropium [DuoNeb 3.0-0.5 MG/3 ML] 1 unit INH Q4HR PRN 08/10/18 [ History] Budesonide/Formoterol Fumarate [Symbicort 80-4.5 Mcg Inhaler] 2 puff INH BID 09/25 [History] Diltiazem HCl [Cartia Xt] 120 mg PO DAILY 08/10/18 [History] Enoxaparin [Lovenox] 80 mg SQ BID 08/10/18 [History] Escitalopram [Lexapro] 10 mg PO DAILY 08/10/18 [History] Acetaminophen/HYDROcodone [[place] 325-5 MG] 1 tab PO Q6HR PRN #56 tablet [Rx] Referrals: Farzad Pfeiffer DO [Physician] - - Discharge Summary/Plan Comment DC Time >30 min.: No - General Info Date of Service: 08/13/18 Functional Status: Reports: Pain Controlled - Review of Systems General: Reports: No Symptoms HEENT: Reports: No Symptoms Pulmonary: Reports: No Symptoms Cardiovascular: Reports: No Symptoms Gastrointestinal: Reports: No Symptoms Genitourinary: Reports: No Symptoms Musculoskeletal: Reports: Leg Pain, Joint Pain, Joint Swelling Skin: Reports: No Symptoms Neurological: Reports: No Symptoms Psychiatric: Reports: No Symptoms - Patient Data Vitals - Most Recent: Last Vital Signs Temp 98.1 F 08/12/18 22:56 Pulse 84 08/13/18 08:20 Resp 18 08/12/18 22:56 BP 142/60 H 08/13/18 08:20 Pulse Ox 97 08/12/18 22:56 Weight - Most Recent: 154 lb 4.8 oz I&O - Last 24 hours: Intake & Output 08/12/18 08/13/18 08/13/18 22:59 06:59 14:59 Intake Total 150 200 Output Total 100 Balance 150 200 -100 Lab Results - Last 24 hrs: Laboratory Results - last 24 hr 08/13/18 Range/Units 08:45 PT 11.0 (8.7-11.1) INR 1.13 (0.89-1.13) Med Orders - Current: Current Medications Hydrocodone Bitart/Acetaminophen ([place] 325-5 Mg) 1 tab PO Q3H PRN PRN Reason: Pain Last Admin: 08/12/18 17:16 Dose: 1 tab Albuterol (Ventolin Hfa) 0 gm INH Q4H PRN PRN Reason: Wheezing Albuterol/Ipratropium (Duoneb 3.0-0.5 Mg/3 Ml) 3 ml INH Q4H PRN PRN Reason: Shortness of Breath Alprazolam (Xanax) 0.5 mg PO TID@0730,1230,2100 [facility] Last Admin: 08/13/18 08:08 Dose: 0.5 mg Aspirin (Aspirin) 81 mg PO DAILY [facility] Last Admin: 08/13/18 08:17 Dose: 81 mg Bacitracin (Bacitracin Oint) 0 gm TOP BID [facility] Last Admin: 08/13/18 08:17 Dose: 1 applic Diltiazem HCl (Cardizem Cd) 120 mg PO DAILY [facility] Last Admin: 08/13/18 08:18 Dose: 120 mg Docusate Sodium (Colace) 100 mg PO BID PRN PRN Reason: Constipation Enoxaparin Sodium (Lovenox) 30 mg SUBCUT DAILY [facility] Last Admin: 08/13/18 08:20 Dose: 30 mg Escitalopram Oxalate (Lexapro) 10 mg PO DAILY [facility] Last Admin: 08/13/18 08:19 Dose: 10 mg Magnesium Hydroxide (Milk Of Magnesia) 30 ml PO BID PRN PRN Reason: Constipation Metoprolol Tartrate (Lopressor) 100 mg PO BID [facility] Last Admin: 08/13/18 08:20 Dose: 100 mg Mometasone Furoate/Formoterol Fumar (Dulera 100-5 Mcg) 2 puff IH BID [facility] Last Admin: 08/13/18 08:18 Dose: 2 puff Morphine Sulfate (Morphine) 2 mg IVPUSH Q2H PRN PRN Reason: Pain Pantoprazole Sodium (Protonix) 40 mg PO DAILY@0600 [facility] Last Admin: 08/13/18 06:05 Dose: 40 mg Potassium Chloride (Klor-Con 8) 8 meq PO DAILY [facility] Last Admin: 08/13/18 08:18 Dose: 8 meq Simvastatin (Zocor) 5 mg PO BEDTIME [facility] Last Admin: 08/12/18 20:26 Dose: 5 mg Sodium Chloride (Saline Flush) 10 ml FLUSH ASDIRECTED PRN PRN Reason: Keep Vein Open Last Admin: 08/12/18 09:08 Dose: 10 ml Warfarin Sodium (Coumadin) 5 mg PO SuTuWeThFrSa@1600 [facility] Last Admin: 08/12/18 16:04 Dose: 5 mg Warfarin Sodium (Coumadin) 2.5 mg PO Mo@1600 [facility] Discontinued Medications Bupivacaine HCl (Marcaine 0.5%) 10 ml INJECT .STK-MED ONE Stop: 08/11/18 10:27 Last Admin: 08/11/18 10:26 Dose: 10 ml Cefazolin Sodium (Ancef) 1 gm IVPUSH Q8H [facility] Stop: 08/12/18 02:01 Last Admin: 08/12/18 02:06 Dose: 1 gm Diltiazem HCl (Diltiazem) 10 mg IVPUSH ONETIME ONE Stop: 08/12/18 08:45 Cefazolin Sodium/Dextrose 2 gm (/ Premix) 50 mls @ 100 mls/hr IV ONETIME ONE Stop: 08/11/18 10:29 Last Admin: 08/11/18 09:46 Dose: 100 mls/hr Lactated Ringer's (Ringers, Lactated) 1,000 mls @ 125 mls/hr IV ASDIRECTED [facility] Last Admin: 08/12/18 00:13 Dose: 125 mls/hr - Exam General: Reports: Alert, Oriented, Cooperative, No Acute Distress HEENT: Reports: Pupils Equal, Pupils Reactive, EOMI, Mucous Membr. Moist/[place] Neck: Reports: Supple, Trachea Midline Lungs: Reports: Normal Respiratory Effort GI/Abdominal Exam: No Distention Extremities: No Pedal Edema, Joint Swelling, Limited Range of Motion Skin: Reports: Warm, Dry, Intact Wound/Incisions: Reports: Healing Well, Dressing Dry and Intact, No Drainage Neurological: Reports: No New Focal Deficit Psy/Mental Status: Reports: Alert, Normal Affect, Normal Mood Discharge Operative/Procedures - Procedures Performed Operations: orif r ankle
[2018-08-17] MEDS ORDERED: Warfarin 2.5 MG Tab PO SCH (16:00)
== END 2018-08-13 10:30 | disposition swing bed (61) | DRG 494 ==
LOC: FB.SDS 07:24 → FB.MS 12:13
PROVIDERS: ADMIT Orthopaedic Surgery; ATTEND Orthopaedic Surgery
PROC: 0QSJ04Z Reposition Right Fibula with Internal Fixation Device, Open Approach (ICD-10-PCS; principal; 2018-08-11)
PROC: 0QSG04Z Reposition Right Tibia with Internal Fixation Device, Open Approach (ICD-10-PCS; 2018-08-11)
DX: S82.841D Displaced bimalleolar fracture of right lower leg, subsequent encounter for closed fracture with routine healing (principal); V48.3XXD Unspecified car occupant injured in noncollision transport accident in nontraffic accident, subsequent encounter; Y92.007 Garden or yard of unspecified non-institutional (private) residence as the place of occurrence of the external cause; I10 Essential (primary) hypertension; I48.2 Chronic atrial fibrillation; Z86.718 Personal history of other venous thrombosis and embolism; I25.10 Atherosclerotic heart disease of native coronary artery without angina pectoris; Z95.1 Presence of aortocoronary bypass graft; Z79.01 Long term (current) use of anticoagulants; J44.9 Chronic obstructive pulmonary disease, unspecified; F41.9 Anxiety disorder, unspecified; E78.5 Hyperlipidemia, unspecified; Z95.3 Presence of xenogenic heart valve; Z85.828 Personal history of other malignant neoplasm of skin; Z86.73 Personal history of transient ischemic attack (TIA), and cerebral infarction without residual deficits
CPT/HCPCS: 27814; 36415; 76000; 85610; J0690; J3490; J7120; 82565; 85049; 97116-GP; 97161-GP; 97165-GO; 97530-GO; A9270-GY; J0171; J1650; J1885; J2250; J2704; J3010

== ENCOUNTER 2018-08-13 10:30 | Inpatient (IN) | payer MEDICARE ==
[2018-08-13] MEDS ORDERED: Warfarin Sliding Scale PO SCH (12:00)
[2018-08-13] MEDS ORDERED: Albuterol/Ipratropium 3.0-0.5 MG/3 ML Neb Soln INH PRN (12:02)
[2018-08-13] MEDS ORDERED: Albuterol 8 GM Inhaler INH PRN (12:02)
[2018-08-13] MEDS: ALPRAZolam 0.5 MG Tab PO SCH ×2 (13:00→20:51)
[2018-08-13] MEDS ORDERED: Warfarin 2.5 MG, Warfarin 5 MG PO SCH ×2 (16:00)
[2018-08-13] MEDS: Enoxaparin 80 MG/0.8 ML Syringe SUBCUT SCH (17:06)
--- NOTE | 2018-08-13 19:22 | PCM.HP ---
H&P History of Present Illness - General Date of Service: 08/13/18 Admit Problem/Dx: Admission Diagnosis/Problem Admission Diagnosis/Problem Ankle pain Source of Information: Patient History Limitations: Reports: No Limitations - History of Present Illness Initial Comments - Free Text/Narative: Kati is a 78-year-old female admitted to swing bed for rehabilitation. She had ORIF of the right ankle by Dr. Pfeiffer. She's admitted for general debility and help with ADLs and ambulation. Her past medical history includes ABHISHEK, CAD status post CABG in 2011, a bioprosthetic mitral valve replacement, history of DVTs atrial fibrillation and hypertension. She is currently on long-term anticoagulation with Coumadin. Pain is well-controlled she has no other symptoms. - Related Data Allergies/Adverse Reactions: Allergies Allergy/AdvReac Type Severity Reaction Status Date / Time meperidine HCl [From Demerol] Allergy Tachycardia Verified 08/11/18 08:49 nystatin Allergy Rash Verified 08/11/18 08:49 propranolol HCl Allergy Tachycardia Verified 08/11/18 08:49 [From Inderal [place]] Sulfa (Sulfonamide Allergy flu like Verified 08/11/18 08:49 Antibiotics) symptoms Home Medications: Home Meds Simvastatin 5 mg PO BEDTIME 10/13/13 [History] Albuterol Sulfate [Proair Hfa] 2 puff IH Q4H PRN 03/23/17 [History] Aspirin 81 mg PO DAILY 03/23/17 [History] Potassium Chloride 8 meq PO DAILY 03/23/17 [History] Warfarin Sodium [Jantoven] 5 mg PO SUTUWETHFRSA 03/23/17 [History] Warfarin [Coumadin] 2.5 mg PO MO 03/23/17 [History] ALPRAZolam [Xanax] 0.5 mg PO TID 03/27/17 [History] Metoprolol Tartrate [Lopressor] 100 mg PO BID #30 tablet 03/29/17 [Rx] Albuterol/Ipratropium [DuoNeb 3.0-0.5 MG/3 ML] 1 unit INH Q4H PRN 08/10/18 [ History] Budesonide/Formoterol Fumarate [Symbicort 80-4.5 Mcg Inhaler] 2 puff INH BID 09/25 [History] Diltiazem HCl [Cartia Xt] 120 mg PO DAILY 08/10/18 [History] Escitalopram [Lexapro] 10 mg PO DAILY 08/10/18 [History] Acetaminophen/HYDROcodone [Natalia 325-5 MG] 1 tab PO Q6H PRN 08/13/18 [History] Enoxaparin [Lovenox] 30 mg SUBCUT DAILY 08/13/18 [History] Past Medical History HEENT History: Reports: Cataract, Other (See Below) Other HEENT History: DYSPHAGIA Cardiovascular History: Reports: Afib, Arrhythmia, Blood Clots/VTE/DVT, CAD, High Cholesterol, Hypertension, Other (See Below) Other Cardiovascular History: MITRAL STENOSIS Respiratory History: Reports: Asthma, COPD Gastrointestinal History: Reports: None Genitourinary History: Reports: None [employer] History: Reports: Musculoskeletal History: Reports: Fracture Neurological History: Reports: Other (See Below) Other Neuro History: tremors; TORTICOLLIS Psychiatric History: Reports: Anxiety Endocrine/Metabolic History: Reports: None Hematologic History: Reports: Other (See Below) Other Hematologic History: HX OF DVT OF LOWER EXTREMITY; 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 Immunologic History: Reports: None Oncologic (Cancer) History: Reports: None Dermatologic History: Reports: Other (See Below) Other Dermatologic History: HX OF BASAL CELL CARCINOMA EXCISION - Past Surgical History HEENT Surgical History: Reports: Cataract Surgery, Other (See Below) Other HEENT Surgeries/Procedures: surgery right ear Cardiovascular Surgical History: Reports: Coronary Artery Bypass, Valve Replacement GI Surgical History: Reports: Appendectomy, Cholecystectomy, Other (See Below) Other GI Surgeries/Procedures: Had feeding tube for 1 1/2 years after bypass surgery in 2012 due to inability to swallow Female Surgical History: Reports: Hysterectomy Musculoskeletal Surgical History: Reports: ORIF Social & Family History - Family History Family Medical History: Noncontributory - Tobacco Use Smoking Status *Q: Never Smoker - Caffeine Use Caffeine Use: Reports: None - Recreational Drug Use Recreational Drug Use: No H&P Review of Systems - Review of Systems: Review Of Systems: ROS reveals no pertinent complaints other than HPI. Exam - Exam Exam: See Below - Vital Signs Vital Signs: Last Vital Signs Temp 98.0 F 08/13/18 12:00 Pulse 92 08/13/18 12:00 Resp 15 08/13/18 12:00 BP 120/68 08/13/18 12:00 Pulse Ox 95 03/07/19 12:00 Weight: 69.862 kg - Exam General: Alert, Oriented HEENT: PERRLA Neck: Supple Lungs: Clear to Auscultation Cardiovascular: Irregular Rhythm Skin: Warm Neurological: Cranial Nerves Intact Neuro Extensive - Mental Status: Alert, Oriented x3 Psychiatric: Alert - Problem List (1) Bimalleolar fracture of right ankle SNOMED Code(s): 623701976 ICD Code: S82.841A - DISPLACED BIMALLEOLAR FRACTURE OF RIGHT LOWER LEG, INIT Status: Acute Current Visit: No Qualifiers: Encounter type: subsequent encounter Fracture healing: with routine healing (2) CAD (coronary artery disease) SNOMED Code(s): 56041472 ICD Code: I25.10 - ATHSCL HEART DISEASE OF [place] CORONARY ARTERY W/O ANG PCTRS Status: Acute Current Visit: No Qualifiers: Coronary Disease-Associated Artery/Lesion type: bypass graft Associated angina: without angina (3) Chronic anticoagulation SNOMED Code(s): 295731790 ICD Code: Z79.01 - 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 Pharmacy to follow. Supratherapeutic today. (4) History of DVT (deep vein thrombosis) SNOMED Code(s): 325726110 ICD Code: Z86.718 - PERSONAL HISTORY OF OTHER VENOUS THROMBOSIS AND EMBOLISM Status: Acute Current Visit: No (5) History of ankle surgery SNOMED Code(s): 506311601 ICD Code: Z98.890 - OTHER SPECIFIED POSTPROCEDURAL STATES Status: Acute Current Visit: No (6) Hyperlipidemia SNOMED Code(s): 29097806 ICD Code: E78.5 - HYPERLIPIDEMIA, UNSPECIFIED Status: Acute Current Visit : No Qualifiers: Hyperlipidemia type: pure hypercholesterolemia Qualified Code(s): E78.00 - Pure hypercholesterolemia, unspecified; E78.0 - Pure hypercholesterolemia (7) Chronic atrial fibrillation SNOMED Code(s): 140786981 ICD Code: I48.2 - CHRONIC ATRIAL FIBRILLATION Status: Chronic Current Visit: No (8) Hypertension SNOMED Code(s): 64199321 ICD Code: I10 - ESSENTIAL (PRIMARY) HYPERTENSION Status: Chronic Current Visit: No Problem Details: See above. Qualifiers: Hypertension type: essential hypertension Problem List Initiated/Reviewed/Updated: Yes Orders Last 24hrs: Active Orders 24 hr Category Date Time Status Patient Status [ADT] Routine ADT 08/13/18 12:00 Active Dressing Change [Wound Care] [RC] 08 Care 08/13/18 14:14 Active Intake and Output [RC] 06,14,22 Care 08/13/18 12:01 Active Oxygen Therapy [RC] PRN Care 08/13/18 12:00 Active VTE/DVT Education [RC] Per Unit Routine Care 08/13/18 12:00 Active Vital Signs [RC] 08 Care 08/13/18 12:00 Active OT Evaluation and Treatment [CONS] Routine Cons 08/13/18 12:00 Active PT Evaluation and Treatment [CONS] Routine Cons 08/13/18 12:00 Active Regular Diet [DIET] Diet 08/13/18 Breakfast Active INR,PT,PROTHROMBIN TIME [COAG] DAILY Lab 08/14/18 05:10 Ordered INR,PT,PROTHROMBIN TIME [COAG] DAILY Lab 08/15/18 05:10 Ordered INR,PT,PROTHROMBIN TIME [COAG] DAILY Lab 08/16/18 05:10 Ordered INR,PT,PROTHROMBIN TIME [COAG] DAILY Lab 08/17/18 05:10 Ordered INR,PT,PROTHROMBIN TIME [COAG] DAILY Lab 08/18/18 05:10 Ordered ALPRAZolam [Xanax] Med 08/13/18 12:30 Active 0.5 mg PO TID@0730,1230,2100 Acetaminophen/HYDROcodone [Natalia 325-5 MG] Med 08/13/18 12:02 Active 1 tab PO Q6H PRN Albuterol [Ventolin HFA] Med 08/13/18 12:02 Active 0 gm INH Q4H PRN Albuterol/Ipratropium [DuoNeb 3.0-0.5 MG/3 ML] Med 08/13/18 12:02 Active 3 ml INH Q4H PRN Aspirin Med 08/14/18 09:00 Active 81 mg PO DAILY Bacitracin [Bacitracin Oint] Med 08/13/18 21:00 Active 0 gm TOP BID Diltiazem [Cardizem CD] Med 08/14/18 09:00 Active 120 mg PO DAILY Enoxaparin [Lovenox] Med 08/13/18 18:00 Active 70 mg SUBCUT Q12H Escitalopram [Lexapro] Med 08/14/18 09:00 Active 10 mg PO DAILY Metoprolol Tartrate [Lopressor] Med 08/13/18 21:00 Active 100 mg PO BID Mometasone/Formoterol [Dulera 100-5 MCG] Med 08/13/18 21:00 Active 2 puff IH BID Pantoprazole [ProTONIX] Med 08/14/18 06:00 Active 40 mg PO 0600 Potassium Chloride [Klor-Con 8] Med 08/14/18 09:00 Active 8 meq PO DAILY Simvastatin [Zocor] Med 08/13/18 21:00 Active 5 mg PO BEDTIME Warfarin Sliding Scale [Coumadin Sliding Scale] Med 08/13/18 12:00 Pending 1 each PO DAILY Resuscitation Status Routine Resus Stat 08/13/18 12:00 Ordered Medication Orders Hydrocodone Bitart/Acetaminophen (Natalia 325-5 Mg) 1 tab PO Q6H PRN PRN Reason: Pain Albuterol (Ventolin Hfa) 0 gm INH Q4H PRN PRN Reason: Wheezing Albuterol/Ipratropium (Duoneb 3.0-0.5 Mg/3 Ml) 3 ml INH Q4H PRN PRN Reason: Shortness of Breath Alprazolam (Xanax) 0.5 mg PO TID@0730,1230,2100 [facility] Last Admin: 08/13/18 13:00 Dose: 0.5 mg Aspirin (Aspirin) 81 mg PO DAILY [facility] Bacitracin (Bacitracin Oint) 0 gm TOP BID [facility] Diltiazem HCl (Cardizem Cd) 120 mg PO DAILY [facility] Enoxaparin Sodium (Lovenox) 70 mg SUBCUT Q12H [facility] Last Admin: 08/13/18 17:06 Dose: 70 mg Escitalopram Oxalate (Lexapro) 10 mg PO DAILY [facility] Metoprolol Tartrate (Lopressor) 100 mg PO BID [facility] Mometasone Furoate/Formoterol Fumar (Dulera 100-5 Mcg) 2 puff IH BID [facility] Pantoprazole Sodium (Protonix) 40 mg PO 0600 [facility] Potassium Chloride (Klor-Con 8) 8 meq PO DAILY [facility] Simvastatin (Zocor) 5 mg PO BEDTIME [facility] Warfarin Sodium (Coumadin Sliding Scale) 1 each PO DAILY [facility] Assessment/Plan Comment:: Admit to Swing Bed with regular orders. Resume Home meds. Bridge Priscila LOCK.Consult PT/OT
[2018-08-13] MEDS: Acetaminophen/HYDROcodone 325-5 MG Tab PO PRN (19:41)
[2018-08-13] MEDS: Simvastatin 10 MG Tab PO SCH (20:51)
[2018-08-13] MEDS: Metoprolol Tartrate 100 MG Tab PO SCH (20:52)
[2018-08-13] MEDS: Formoterol/Mometasone 100-5 MCG 8.8 GM Inhaler IH SCH (20:54)
[2018-08-13] MEDS: Bacitracin Oint 28.35 GM Tube TOP SCH (20:55)
[2018-08-14] MEDS: Pantoprazole 40 MG Tab.CR PO SCH (05:46)
[2018-08-14] MEDS: Enoxaparin 80 MG/0.8 ML Syringe SUBCUT SCH ×2 (05:48→17:56)
[2018-08-14] MEDS: ALPRAZolam 0.5 MG Tab PO SCH ×3 (07:35→21:01)
[2018-08-14] MEDS: Diltiazem 120 MG Cap.CD PO SCH (09:34)
[2018-08-14] MEDS: Aspirin 81 MG Tab.Chew PO SCH (09:34)
[2018-08-14] MEDS: Bacitracin Oint 28.35 GM Tube TOP SCH ×2 (09:34→20:39)
[2018-08-14] MEDS: Escitalopram 10 MG Tab PO SCH (09:35)
[2018-08-14] MEDS: Potassium Chloride 8 MEQ Tab.ER PO SCH (09:35)
[2018-08-14] MEDS: Metoprolol Tartrate 100 MG Tab PO SCH ×2 (09:36→20:41)
[2018-08-14] MEDS: Formoterol/Mometasone 100-5 MCG 8.8 GM Inhaler IH SCH ×2 (09:36→20:39)
[2018-08-14] MEDS: Warfarin 5 MG Tab PO SCH (16:45)
[2018-08-14] MEDS: Acetaminophen/HYDROcodone 325-5 MG Tab PO PRN (17:55)
[2018-08-14] MEDS: Simvastatin 10 MG Tab PO SCH (20:48)
[2018-08-15] MEDS: Pantoprazole 40 MG Tab.CR PO SCH (06:05)
[2018-08-15] MEDS: Acetaminophen/HYDROcodone 325-5 MG Tab PO PRN ×2 (06:23→19:34)
[2018-08-15] MEDS: ALPRAZolam 0.5 MG Tab PO SCH ×3 (06:36→20:31)
[2018-08-15] MEDS: Enoxaparin 80 MG/0.8 ML Syringe SUBCUT SCH ×2 (07:14→18:43)
[2018-08-15] MEDS: Bacitracin Oint 28.35 GM Tube TOP SCH ×2 (09:48→20:31)
[2018-08-15] MEDS: Aspirin 81 MG Tab.Chew PO SCH (09:48)
[2018-08-15] MEDS: Formoterol/Mometasone 100-5 MCG 8.8 GM Inhaler IH SCH ×2 (09:52→20:34)
[2018-08-15] MEDS: Diltiazem 120 MG Cap.CD PO SCH (09:53)
[2018-08-15] MEDS: Metoprolol Tartrate 100 MG Tab PO SCH ×2 (09:54→20:31)
[2018-08-15] MEDS: Potassium Chloride 8 MEQ Tab.ER PO SCH (09:54)
[2018-08-15] MEDS: Escitalopram 10 MG Tab PO SCH (09:54)
[2018-08-15] MEDS: Warfarin 5 MG Tab PO SCH (17:00)
[2018-08-15] MEDS: Simvastatin 10 MG Tab PO SCH (20:31)
[2018-08-16] MEDS: Enoxaparin 80 MG/0.8 ML Syringe SUBCUT SCH ×2 (06:13→18:49)
[2018-08-16] MEDS: Pantoprazole 40 MG Tab.CR PO SCH (06:13)
[2018-08-16] MEDS: ALPRAZolam 0.5 MG Tab PO SCH ×4 (06:14→21:23)
[2018-08-16] MEDS: Acetaminophen/HYDROcodone 325-5 MG Tab PO PRN ×2 (08:53→21:35)
[2018-08-16] MEDS: Aspirin 81 MG Tab.Chew PO SCH (08:55)
[2018-08-16] MEDS: Formoterol/Mometasone 100-5 MCG 8.8 GM Inhaler IH SCH ×2 (08:55→21:20)
[2018-08-16] MEDS: Escitalopram 10 MG Tab PO SCH (08:55)
[2018-08-16] MEDS: Diltiazem 120 MG Cap.CD PO SCH (08:55)
[2018-08-16] MEDS: Bacitracin Oint 28.35 GM Tube TOP SCH ×2 (08:56→21:21)
[2018-08-16] MEDS: Potassium Chloride 8 MEQ Tab.ER PO SCH (08:56)
[2018-08-16] MEDS: Metoprolol Tartrate 100 MG Tab PO SCH ×2 (08:56→21:21)
[2018-08-16] MEDS: Warfarin 5 MG Tab PO SCH (16:56)
[2018-08-16] MEDS: Simvastatin 10 MG Tab PO SCH (21:23)
[2018-08-17] MEDS: Enoxaparin 80 MG/0.8 ML Syringe SUBCUT SCH ×2 (06:31→17:14)
[2018-08-17] MEDS: Pantoprazole 40 MG Tab.CR PO SCH (06:31)
[2018-08-17] MEDS: ALPRAZolam 0.5 MG Tab PO SCH ×3 (06:32→20:38)
[2018-08-17] MEDS: Diltiazem 120 MG Cap.CD PO SCH (08:34)
[2018-08-17] MEDS: Aspirin 81 MG Tab.Chew PO SCH (08:34)
[2018-08-17] MEDS: Escitalopram 10 MG Tab PO SCH (08:34)
[2018-08-17] MEDS: Potassium Chloride 8 MEQ Tab.ER PO SCH (08:34)
[2018-08-17] MEDS: Metoprolol Tartrate 100 MG Tab PO SCH ×2 (08:34→20:46)
[2018-08-17] MEDS: Acetaminophen/HYDROcodone 325-5 MG Tab PO PRN ×2 (08:34→20:46)
[2018-08-17] MEDS: Formoterol/Mometasone 100-5 MCG 8.8 GM Inhaler IH SCH ×2 (08:35→20:32)
[2018-08-17] MEDS: Bacitracin Oint 28.35 GM Tube TOP SCH ×2 (08:35→20:32)
--- NOTE | 2018-08-17 12:15 | PN ---
DATE SEEN: 08/17/2018 HISTORY: Izabel is a 78-year-old woman with a history of coronary artery disease, status post bypass and bioprosthetic heart valve replacement; chronic atrial fibrillation, on anticoagulation; asthma with COPD; and chronic essential tremor. The patient fell on an ice junk outside her house after returning home from a doctor's appointment. She sustained a bimalleolar fracture of her right ankle. She underwent ORIF of the ankle fracture by Dr. Pfeiffer on 08/11/2018. She is now 6 days postop and feels like she is doing well. Her pain is well controlled. She has now gotten up on the kneeling walker. She is able to get to the bathroom with the four-wheeled walker without weightbearing. The plans are for her to be nonweightbearing for 9 weeks from the date of surgery. PHYSICAL EXAMINATION: GENERAL: She is alert, comfortable, in good spirits. VITAL SIGNS: Blood pressure 138/83, pulse 102 and irregular in atrial fibrillation, and respirations normal. She is afebrile, O2 saturation 97% on room air. SKIN: Shows ecchymosis over her left flank, left posterior forearm. She has scattered smaller ecchymoses over her distal forearms and hands. She has a boot and a dressing in place over the right ankle. HEENT: Shows her to have the mild but coarse head tremor. LUNGS: Clear. HEART: Irregular in atrial fibrillation pattern. There is a soft systolic murmur over the precordium. ABDOMEN: Normal bowel sounds. Soft and nontender. EXTREMITIES: Show intact sensation to the toes inside her right boot. No edema on the left lower extremity. LABORATORY: INR 1.44. She is resuming the warfarin and remains on Lovenox bridging. ASSESSMENT: 1. Open reduction and internal fixation of right ankle fracture, satisfactorily healing postop. 2. Chronic atrial fibrillation, on anticoagulation. 3. Coronary artery disease. 4. Asthma with chronic obstructive pulmonary disease. 5. Chronic essential tremor. PLAN: She will continue physical and occupational therapy with plans to increase her mobility with both the kneeling scooter and the four-wheel walker, remaining nonweightbearing through approximately the 21 of October. She will continue to have orthopedic followup with Dr. Pfeiffer. I anticipate she may be able for discharge within the next 7-10 days if she continues to make good progress. We will continue to provide palliative care measures for her general COPD, restricted ambulation, coronary artery disease, and her tremor. /[id number] [place]
[2018-08-17] MEDS ORDERED: Warfarin 5 MG, Warfarin 2.5 MG PO ONE ×2 (16:00)
[2018-08-17] MEDS: Simvastatin 10 MG Tab PO SCH (20:38)
[2018-08-18] MEDS: Pantoprazole 40 MG Tab.CR PO SCH (06:47)
[2018-08-18] MEDS: ALPRAZolam 0.5 MG Tab PO SCH ×3 (06:47→21:23)
[2018-08-18] MEDS: Enoxaparin 80 MG/0.8 ML Syringe SUBCUT SCH ×2 (06:47→17:56)
[2018-08-18] MEDS: Acetaminophen/HYDROcodone 325-5 MG Tab PO PRN ×3 (08:58→21:23)
[2018-08-18] MEDS: Bacitracin Oint 28.35 GM Tube TOP SCH ×2 (08:59→21:15)
[2018-08-18] MEDS: Aspirin 81 MG Tab.Chew PO SCH (08:59)
[2018-08-18] MEDS: Potassium Chloride 8 MEQ Tab.ER PO SCH (09:01)
[2018-08-18] MEDS: Formoterol/Mometasone 100-5 MCG 8.8 GM Inhaler IH SCH ×2 (09:01→21:16)
[2018-08-18] MEDS: Metoprolol Tartrate 100 MG Tab PO SCH ×2 (09:02→21:17)
[2018-08-18] MEDS: Escitalopram 10 MG Tab PO SCH (09:02)
[2018-08-18] MEDS: Diltiazem 120 MG Cap.CD PO SCH (09:02)
[2018-08-18] MEDS ORDERED: Warfarin 5 MG, Warfarin 2.5 MG PO SCH ×2 (16:00)
[2018-08-18] MEDS: Simvastatin 10 MG Tab PO SCH (21:17)
[2018-08-19] MEDS: Enoxaparin 80 MG/0.8 ML Syringe SUBCUT SCH (05:52)
[2018-08-19] MEDS: Pantoprazole 40 MG Tab.CR PO SCH (05:52)
[2018-08-19] MEDS: ALPRAZolam 0.5 MG Tab PO SCH ×4 (05:52→20:46)
[2018-08-19] MEDS: Bacitracin Oint 28.35 GM Tube TOP SCH ×2 (08:15→20:42)
[2018-08-19] MEDS: Acetaminophen/HYDROcodone 325-5 MG Tab PO PRN ×2 (08:16→20:46)
[2018-08-19] MEDS: Aspirin 81 MG Tab.Chew PO SCH (08:17)
[2018-08-19] MEDS: Diltiazem 120 MG Cap.CD PO SCH (08:17)
[2018-08-19] MEDS: Metoprolol Tartrate 100 MG Tab PO SCH ×2 (08:17→20:47)
[2018-08-19] MEDS: Escitalopram 10 MG Tab PO SCH (08:17)
[2018-08-19] MEDS: Formoterol/Mometasone 100-5 MCG 8.8 GM Inhaler IH SCH ×2 (08:18→20:44)
[2018-08-19] MEDS: Potassium Chloride 8 MEQ Tab.ER PO SCH (08:18)
[2018-08-19] MEDS: Warfarin 5 MG Tab PO SCH (16:16)
[2018-08-19] MEDS: Simvastatin 10 MG Tab PO SCH (20:47)
[2018-08-20] MEDS: Pantoprazole 40 MG Tab.CR PO SCH (06:22)
[2018-08-20] MEDS: ALPRAZolam 0.5 MG Tab PO SCH ×3 (06:36→21:13)
[2018-08-20] MEDS: Bacitracin Oint 28.35 GM Tube TOP SCH ×2 (08:11→21:08)
[2018-08-20] MEDS: Formoterol/Mometasone 100-5 MCG 8.8 GM Inhaler IH SCH ×2 (08:11→21:07)
[2018-08-20] MEDS: Acetaminophen/HYDROcodone 325-5 MG Tab PO PRN ×2 (08:11→21:12)
[2018-08-20] MEDS: Metoprolol Tartrate 100 MG Tab PO SCH ×2 (08:13→21:08)
[2018-08-20] MEDS: Potassium Chloride 8 MEQ Tab.ER PO SCH (08:13)
[2018-08-20] MEDS: Escitalopram 10 MG Tab PO SCH (08:14)
[2018-08-20] MEDS: Diltiazem 120 MG Cap.CD PO SCH (08:14)
[2018-08-20] MEDS: Aspirin 81 MG Tab.Chew PO SCH (08:15)
[2018-08-20] MEDS: Warfarin 5 MG Tab PO SCH (15:39)
[2018-08-20] MEDS: Simvastatin 10 MG Tab PO SCH (21:13)
[2018-08-21] MEDS: Pantoprazole 40 MG Tab.CR PO SCH (06:51)
[2018-08-21] MEDS: ALPRAZolam 0.5 MG Tab PO SCH ×3 (06:51→20:44)
[2018-08-21] MEDS: Aspirin 81 MG Tab.Chew PO SCH (08:20)
[2018-08-21] MEDS: Potassium Chloride 8 MEQ Tab.ER PO SCH (08:21)
[2018-08-21] MEDS: Formoterol/Mometasone 100-5 MCG 8.8 GM Inhaler IH SCH ×2 (08:21→20:39)
[2018-08-21] MEDS: Bacitracin Oint 28.35 GM Tube TOP SCH ×2 (08:21→20:38)
[2018-08-21] MEDS: Diltiazem 120 MG Cap.CD PO SCH (08:21)
[2018-08-21] MEDS: Metoprolol Tartrate 100 MG Tab PO SCH ×2 (08:22→20:42)
[2018-08-21] MEDS: Escitalopram 10 MG Tab PO SCH (08:22)
[2018-08-21] MEDS: Acetaminophen/HYDROcodone 325-5 MG Tab PO PRN ×2 (08:29→21:29)
[2018-08-21] MEDS ORDERED: Warfarin 5 MG, Warfarin 2.5 MG PO ONE ×2 (16:00)
[2018-08-21] MEDS: Simvastatin 10 MG Tab PO SCH (20:45)
[2018-08-22] MEDS: Pantoprazole 40 MG Tab.CR PO SCH (06:15)
[2018-08-22] MEDS: Aspirin 81 MG Tab.Chew PO SCH (08:04)
[2018-08-22] MEDS: Bacitracin Oint 28.35 GM Tube TOP SCH ×2 (08:04→20:07)
[2018-08-22] MEDS: ALPRAZolam 0.5 MG Tab PO SCH ×3 (08:04→20:08)
[2018-08-22] MEDS: Formoterol/Mometasone 100-5 MCG 8.8 GM Inhaler IH SCH ×2 (08:05→20:07)
[2018-08-22] MEDS: Diltiazem 120 MG Cap.CD PO SCH (08:05)
[2018-08-22] MEDS: Potassium Chloride 8 MEQ Tab.ER PO SCH (08:05)
[2018-08-22] MEDS: Escitalopram 10 MG Tab PO SCH (08:06)
[2018-08-22] MEDS: Metoprolol Tartrate 100 MG Tab PO SCH ×2 (08:06→20:08)
[2018-08-22] MEDS: Acetaminophen/HYDROcodone 325-5 MG Tab PO PRN ×2 (08:11→20:09)
[2018-08-22] MEDS ORDERED: Warfarin 5 MG Tab PO ONE (16:00)
[2018-08-22] MEDS: Warfarin 5 MG Tab PO SCH (16:36)
[2018-08-22] MEDS: Simvastatin 10 MG Tab PO SCH (20:08)
[2018-08-23] MEDS: Pantoprazole 40 MG Tab.CR PO SCH (06:49)
[2018-08-23] MEDS: ALPRAZolam 0.5 MG Tab PO SCH ×3 (06:49→21:06)
[2018-08-23] MEDS: Diltiazem 120 MG Cap.CD PO SCH (08:24)
[2018-08-23] MEDS: Potassium Chloride 8 MEQ Tab.ER PO SCH (08:26)
[2018-08-23] MEDS: Metoprolol Tartrate 100 MG Tab PO SCH ×2 (08:26→21:09)
[2018-08-23] MEDS: Escitalopram 10 MG Tab PO SCH (08:27)
[2018-08-23] MEDS: Aspirin 81 MG Tab.Chew PO SCH (08:27)
[2018-08-23] MEDS: Bacitracin Oint 28.35 GM Tube TOP SCH ×2 (08:27→21:00)
[2018-08-23] MEDS: Formoterol/Mometasone 100-5 MCG 8.8 GM Inhaler IH SCH ×2 (08:28→21:01)
[2018-08-23] MEDS: Acetaminophen/HYDROcodone 325-5 MG Tab PO PRN ×2 (09:53→21:06)
[2018-08-23] MEDS: Warfarin 5 MG Tab PO SCH (15:53)
[2018-08-23] MEDS: Simvastatin 10 MG Tab PO SCH (21:01)
[2018-08-24] MEDS: ALPRAZolam 0.5 MG Tab PO SCH (07:06)
[2018-08-24] MEDS: Pantoprazole 40 MG Tab.CR PO SCH (07:06)
--- NOTE | 2018-08-24 08:37 | PCM.PN ---
- General Info Date of Service: 08/24/18 Admission Dx/Problem (Free Text): Patient is without concerns today. Her ankle has no pain. She only has some discomfort when she has to wheel around her wheelchair with her arms. She has no chest pain, fevers, chills, shortness of breath, cough. - Patient Data Vitals - Most Recent: Last Vital Signs Temp 97.1 F 08/23/18 08:00 Pulse 90 08/23/18 21:09 Resp 14 08/23/18 08:00 BP 142/82 H 08/23/18 21:09 Pulse Ox 97 08/23/18 08:00 Weight - Most Recent: 154 lb 0.3 oz Med Orders - Current: Current Medications Hydrocodone Bitart/Acetaminophen ([place] 325-5 Mg) 1 tab PO Q6H PRN PRN Reason: Pain Last Admin: 08/23/18 21:06 Dose: 1 tab Albuterol (Ventolin Hfa) 0 gm INH Q4H PRN PRN Reason: Wheezing Albuterol/Ipratropium (Duoneb 3.0-0.5 Mg/3 Ml) 3 ml INH Q4H PRN PRN Reason: Shortness of Breath Alprazolam (Xanax) 0.5 mg PO TID@0730,1230,2100 [facility] Last Admin: 08/24/18 07:06 Dose: 0.5 mg Aspirin (Aspirin) 81 mg PO DAILY [facility] Last Admin: 08/23/18 08:27 Dose: 81 mg Bacitracin (Bacitracin Oint) 0 gm TOP BID [facility] Last Admin: 08/23/18 21:00 Dose: 1 applic Diltiazem HCl (Cardizem Cd) 120 mg PO DAILY [facility] Last Admin: 08/23/18 08:24 Dose: 120 mg Escitalopram Oxalate (Lexapro) 10 mg PO DAILY [facility] Last Admin: 08/23/18 08:27 Dose: 10 mg Metoprolol Tartrate (Lopressor) 100 mg PO BID [facility] Last Admin: 08/23/18 21:09 Dose: 100 mg Mometasone Furoate/Formoterol Fumar (Dulera 100-5 Mcg) 2 puff IH BID [facility] Last Admin: 08/23/18 21:01 Dose: 2 puff Pantoprazole Sodium (Protonix) 40 mg PO 0600 [facility] Last Admin: 03/18/19 07:06 Dose: 40 mg Potassium Chloride (Klor-Con 8) 8 meq PO DAILY [facility] Last Admin: 08/23/18 08:26 Dose: 8 meq Simvastatin (Zocor) 5 mg PO BEDTIME [facility] Last Admin: 08/23/18 21:01 Dose: 5 mg Warfarin Sodium (Coumadin Sliding Scale) 1 each PO DAILY [facility] Warfarin Sodium (Coumadin) 5 mg PO 1600 [facility] Last Admin: 08/23/18 15:53 Dose: 5 mg Discontinued Medications Enoxaparin Sodium (Lovenox) 70 mg SUBCUT Q12H [facility] Last Admin: 08/19/18 05:52 Dose: 70 mg Warfarin Sodium 2.5 mg/ (Warfarin Sodium 5 mg) 7.5 mg PO 08/13/18@1600 [facility] Stop: 08/13/18 16:30 Last Admin: 08/13/18 17:06 Dose: 7.5 mg Warfarin Sodium (Coumadin) 5 mg PO DAILY@1600 [facility] Last Admin: 08/16/18 16:56 Dose: 5 mg Warfarin Sodium 5 mg/ Warfarin (Sodium 2.5 mg) 7.5 mg PO ONETIME ONE Stop: 08/17/18 16:01 Last Admin: 08/17/18 16:48 Dose: 7.5 mg Warfarin Sodium 5 mg/ Warfarin (Sodium 2.5 mg) 7.5 mg PO ONETIME [facility] Last Admin: 08/18/18 18:00 Dose: 7.5 mg Warfarin Sodium 5 mg/ Warfarin (Sodium 2.5 mg) 7.5 mg PO ONETIME ONE Stop: 08/21/18 16:01 Last Admin: 08/21/18 15:26 Dose: 7.5 mg Warfarin Sodium (Coumadin) 5 mg PO ONETIME ONE Stop: 08/22/18 16:01 - Exam General: Alert, Oriented Lungs: Clear to Auscultation, Normal Respiratory Effort Cardiovascular: Regular Rate, Irregular Rhythm Extremities: Other (Right ankle cast) - Problem List & Annotations (1) Ankle fracture, right SNOMED Code(s): 62447428 Code(s): S82.891A - OTH FRACTURE OF RIGHT LOWER LEG, INIT FOR CLOS FX Status: Acute Current Visit: Yes (2) Asthma SNOMED Code(s): 132423198 Code(s): J45.909 - UNSPECIFIED ASTHMA, UNCOMPLICATED Status: Acute Current Visit: No Annotation/Comment:: see above. (3) Chronic atrial fibrillation SNOMED Code(s): 841391653 Code(s): I48.2 - CHRONIC ATRIAL FIBRILLATION Status: Chronic Current Visit: No - Problem List Review Problem List Initiated/Reviewed/Updated: Yes - Plan Plan:: 1. Discharge to home on home health with PT/OT. 2. No weightbearing right foot.
--- NOTE | 2018-08-24 08:45 | PCM.DCSUM1 ---
Discharge Summary - Hospital Course Free Text/Narrative:: Hospital course-patient was placed in swing bed and had PT/OT. Her pain was controlled with hydrocodone every 6 hours. Her stay was uneventful. Brief History: Kati is a 78-year-old female admitted to swing bed for rehabilitation. She had ORIF of the right ankle by Dr. Pfeiffer. She's admitted for general debility and help with ADLs and ambulation. Her past medical history includes ABHISHEK, CAD status post CABG in 2011, a bioprosthetic mitral valve replacement, history of DVTs atrial fibrillation and hypertension. She is currently on long-term anticoagulation with Coumadin. Pain is well- controlled she has no other symptoms. Diagnosis: Stroke: No - Discharge Data Discharge Date: 08/24/18 Discharge Disposition: Home, Self-Care 01 Condition: Good - Discharge Diagnosis/Problem(s) (1) Ankle fracture, right SNOMED Code(s): 95937110 ICD Code: S82.891A - OTH FRACTURE OF RIGHT LOWER LEG, INIT FOR CLOS FX Status: Acute Current Visit: Yes (2) Asthma SNOMED Code(s): 360552243 ICD Code: J45.909 - UNSPECIFIED ASTHMA, UNCOMPLICATED Status: Acute Current Visit: No Problem Details: see above. (3) Chronic atrial fibrillation SNOMED Code(s): 593431259 ICD Code: I48.2 - CHRONIC ATRIAL FIBRILLATION Status: Chronic Current Visit: No - Patient Summary/Data Consults: Consultations 08/13/18 12:00 OT Evaluation and Treatment [CONS] Routine Please Evaluate and Treat. OT Reason for Consult: ADL's This query below is only for informational purposes and is not editable. PT Evaluation and Treatment [CONS] Routine Please Evaluate and Treat. PT Reason for Consult: Ambulation This query below is only for informational purposes and is not editable. - Patient Instructions Diet: Regular Diet as Tolerated Activity, Other: Weightbearing right foot Driving: Do Not Drive Showering/Bathing: May Shower Notify Provider of: Swelling and Redness Other/Special Instructions: 1. Recheck with Carolina Knox and this week with an INR. 2. Recheck with Anthony Pfeiffer today. 3. Home health/PT/OT for medical management home safety, strengthening, ADLs - Discharge Plan Prescriptions/Med Rec: Acetaminophen/HYDROcodone [[place] 325-5 MG] 1 tab PO Q6H PRN #40 tablet PRN Reason: Pain Home Medications: Home Meds Simvastatin 5 mg PO BEDTIME 10/13/13 [History] Albuterol Sulfate [Proair Hfa] 2 puff IH Q4H PRN 03/23/17 [History] Aspirin 81 mg PO DAILY 03/23/17 [History] Potassium Chloride 8 meq PO DAILY 03/23/17 [History] Warfarin Sodium [Jantoven] 5 mg PO SUTUWETHFRSA 03/23/17 [History] Warfarin [Coumadin] 2.5 mg PO MO 03/23/17 [History] ALPRAZolam [Xanax] 0.5 mg PO TID 03/27/17 [History] Metoprolol Tartrate [Lopressor] 100 mg PO BID #30 tablet 03/29/17 [Rx] Albuterol/Ipratropium [DuoNeb 3.0-0.5 MG/3 ML] 1 unit INH Q4H PRN 08/10/18 [ History] Budesonide/Formoterol Fumarate [Symbicort 80-4.5 Mcg Inhaler] 2 puff INH BID 09/25 [History] Diltiazem HCl [Cartia Xt] 120 mg PO DAILY 08/10/18 [History] Escitalopram [Lexapro] 10 mg PO DAILY 08/10/18 [History] Enoxaparin [Lovenox] 30 mg SUBCUT DAILY 08/13/18 [History] Acetaminophen/HYDROcodone [[place] 325-5 MG] 1 tab PO Q6H PRN #40 tablet 08/24/18 [Rx] Patient Handouts: Venous Thromboembolism Prevention - Discharge Summary/Plan Comment DC Time >30 min.: No - Patient Data Vitals - Most Recent: Last Vital Signs Temp 97.1 F 08/23/18 08:00 Pulse 90 08/23/18 21:09 Resp 14 08/23/18 08:00 BP 142/82 H 08/23/18 21:09 Pulse Ox 97 08/23/18 08:00 Weight - Most Recent: 154 lb 0.3 oz Med Orders - Current: Current Medications Hydrocodone Bitart/Acetaminophen ([place] 325-5 Mg) 1 tab PO Q6H PRN PRN Reason: Pain Last Admin: 08/23/18 21:06 Dose: 1 tab Albuterol (Ventolin Hfa) 0 gm INH Q4H PRN PRN Reason: Wheezing Albuterol/Ipratropium (Duoneb 3.0-0.5 Mg/3 Ml) 3 ml INH Q4H PRN PRN Reason: Shortness of Breath Alprazolam (Xanax) 0.5 mg PO TID@0730,1230,2100 [facility] Last Admin: 08/24/18 07:06 Dose: 0.5 mg Aspirin (Aspirin) 81 mg PO DAILY [facility] Last Admin: 08/23/18 08:27 Dose: 81 mg Bacitracin (Bacitracin Oint) 0 gm TOP BID [facility] Last Admin: 08/23/18 21:00 Dose: 1 applic Diltiazem HCl (Cardizem Cd) 120 mg PO DAILY [facility] Last Admin: 08/23/18 08:24 Dose: 120 mg Escitalopram Oxalate (Lexapro) 10 mg PO DAILY [facility] Last Admin: 08/23/18 08:27 Dose: 10 mg Metoprolol Tartrate (Lopressor) 100 mg PO BID [facility] Last Admin: 08/23/18 21:09 Dose: 100 mg Mometasone Furoate/Formoterol Fumar (Dulera 100-5 Mcg) 2 puff IH BID [facility] Last Admin: 08/23/18 21:01 Dose: 2 puff Pantoprazole Sodium (Protonix) 40 mg PO 0600 [facility] Last Admin: 08/24/18 07:06 Dose: 40 mg Potassium Chloride (Klor-Con 8) 8 meq PO DAILY [facility] Last Admin: 08/23/18 08:26 Dose: 8 meq Simvastatin (Zocor) 5 mg PO BEDTIME [facility] Last Admin: 08/23/18 21:01 Dose: 5 mg Warfarin Sodium (Coumadin Sliding Scale) 1 each PO DAILY [facility] Warfarin Sodium (Coumadin) 5 mg PO 1600 [facility] Last Admin: 08/23/18 15:53 Dose: 5 mg Discontinued Medications Enoxaparin Sodium (Lovenox) 70 mg SUBCUT Q12H [facility] Last Admin: 08/19/18 05:52 Dose: 70 mg Warfarin Sodium 2.5 mg/ (Warfarin Sodium 5 mg) 7.5 mg PO 08/13/18@1600 [facility] Stop: 08/13/18 16:30 Last Admin: 08/13/18 17:06 Dose: 7.5 mg Warfarin Sodium (Coumadin) 5 mg PO DAILY@1600 [facility] Last Admin: 08/16/18 16:56 Dose: 5 mg Warfarin Sodium 5 mg/ Warfarin (Sodium 2.5 mg) 7.5 mg PO ONETIME ONE Stop: 08/17/18 16:01 Last Admin: 08/17/18 16:48 Dose: 7.5 mg Warfarin Sodium 5 mg/ Warfarin (Sodium 2.5 mg) 7.5 mg PO ONETIME [facility] Last Admin: 08/18/18 18:00 Dose: 7.5 mg Warfarin Sodium 5 mg/ Warfarin (Sodium 2.5 mg) 7.5 mg PO ONETIME ONE Stop: 08/21/18 16:01 Last Admin: 08/21/18 15:26 Dose: 7.5 mg Warfarin Sodium (Coumadin) 5 mg PO ONETIME ONE Stop: 08/22/18 16:01
[2018-08-24] MEDS: Bacitracin Oint 28.35 GM Tube TOP SCH (08:46)
[2018-08-24] MEDS: Formoterol/Mometasone 100-5 MCG 8.8 GM Inhaler IH SCH (08:46)
[2018-08-24] MEDS: Aspirin 81 MG Tab.Chew PO SCH (08:47)
[2018-08-24] MEDS: Metoprolol Tartrate 100 MG Tab PO SCH (08:48)
[2018-08-24] MEDS: Escitalopram 10 MG Tab PO SCH (08:49)
[2018-08-24] MEDS: Diltiazem 120 MG Cap.CD PO SCH (08:49)
[2018-08-24] MEDS: Potassium Chloride 8 MEQ Tab.ER PO SCH (08:50)
[2018-08-24] MEDS: Acetaminophen/HYDROcodone 325-5 MG Tab PO PRN (10:31)
--- NOTE | 2018-08-24 15:53 | CR ---
INDICATION: Status post ORIF bimalleolar fracture. RIGHT ANKLE: Three views of the right ankle were obtained 08/24/18 and compared with 08/11/18 intraoperative images, revealing no change in position and alignment of the bimalleolar fracture fragments fixed in place by plates with multiple screws bilaterally. Overlying skin dahlia remain in place. IMPRESSION: Stable bimalleolar fracture fragments post ORIF. TJ
== END 2018-08-24 11:16 | disposition home health service (06) | DRG 948 ==
LOC: FB.MS 10:30
PROVIDERS: ADMIT Orthopaedic Surgery; ATTEND Orthopaedic Surgery
DX: R53.81 Other malaise (principal); Z98.890 Other specified postprocedural states; S82.841D Displaced bimalleolar fracture of right lower leg, subsequent encounter for closed fracture with routine healing; I10 Essential (primary) hypertension; F41.1 Generalized anxiety disorder; G25.0 Essential tremor; I25.10 Atherosclerotic heart disease of native coronary artery without angina pectoris; Z95.1 Presence of aortocoronary bypass graft; Z95.2 Presence of prosthetic heart valve; Z86.718 Personal history of other venous thrombosis and embolism; I48.2 Chronic atrial fibrillation; Z79.01 Long term (current) use of anticoagulants; E78.5 Hyperlipidemia, unspecified; J44.9 Chronic obstructive pulmonary disease, unspecified; Z85.828 Personal history of other malignant neoplasm of skin; Z79.82 Long term (current) use of aspirin; Z79.899 Other long term (current) drug therapy; Z88.5 Allergy status to narcotic agent; Z88.2 Allergy status to sulfonamides; Z90.49 Acquired absence of other specified parts of digestive tract; Z90.710 Acquired absence of both cervix and uterus
CPT/HCPCS: 36415; 73610-RT; 85610; 97110-GO; 97110-GP; 97116-GP; 97530-GO; 97530-GP; 97535-GO; 97760-GO; A9270-GY; J1650

== ENCOUNTER 2018-09-03 12:15 | Inpatient (IN) | payer MEDICARE ==
[2018-09-03] MEDS ORDERED: Albuterol/Ipratropium 3.0-0.5 MG/3 ML Neb Soln INH PRN (13:43)
[2018-09-03] MEDS ORDERED: Warfarin Sliding Scale PO SCH (13:45)
[2018-09-03] MEDS: metroNIDAZOLE 500 MG Tab PO SCH ×2 (15:04→20:21)
[2018-09-03] MEDS: ALPRAZolam 0.5 MG Tab PO PRN ×2 (15:29→20:32)
--- NOTE | 2018-09-03 17:06 | PCM.HP ---
H&P History of Present Illness - General Date of Service: 09/03/18 Admit Problem/Dx: Admission Diagnosis/Problem Admission Diagnosis/Problem Weakness Source of Information: Patient History Limitations: Reports: No Limitations - History of Present Illness Initial Comments - Free Text/Narative: Kati is a 78-year-old female admitted to for rehabilitation. She was at [place] for pneumonia, thought to be hospital-acquired. She recently had ORIF of a bimalleolar fracture of the right ankle here at [facility],and up upon discharge within a few days being hospitalized for several days in [place]. She is on oxygen supplementation,and oral antibiotics,but was too weak to go home independently.. Apart from feeling weak ,she has no other symptoms. She has a history of ABHISHEK, CAD, HT,history of DVT and is on chronic anticoagulation. - Related Data Allergies/Adverse Reactions: Allergies Allergy/AdvReac Type Severity Reaction Status Date / Time meperidine HCl [From Demerol] Allergy Tachycardia Verified 08/11/18 08:49 nystatin Allergy Rash Verified 08/11/18 08:49 propranolol HCl Allergy Tachycardia Verified 08/11/18 08:49 [From Inderal LA] Sulfa (Sulfonamide Allergy flu like Verified 08/11/18 08:49 Antibiotics) symptoms Home Medications: Home Meds Simvastatin 5 mg PO BEDTIME 10/13/13 [History] Albuterol Sulfate [Proair Hfa] 2 puff IH Q4H PRN 03/23/17 [History] Aspirin 81 mg PO DAILY 03/23/17 [History] Warfarin [Coumadin] 2.5 - 5 mg PO DAILY 03/23/17 [History] ALPRAZolam [Xanax] 0.5 mg PO TID PRN 03/27/17 [History] Albuterol/Ipratropium [DuoNeb 3.0-0.5 MG/3 ML] 1 unit INH Q4H PRN 08/10/18 [ History] Budesonide/Formoterol Fumarate [Symbicort 80-4.5 Mcg Inhaler] 2 puff INH BID 09/25 [History] Diltiazem HCl [Cartia Xt] 120 mg PO DAILY 08/10/18 [History] Escitalopram [Lexapro] 10 mg PO DAILY 08/10/18 [History] Acetaminophen/HYDROcodone [[place] 325-5 MG] 1 tab PO Q6H PRN #40 tablet 08/24/18 [Rx] Ciprofloxacin HCl [Cipro] 500 mg PO BID 09/03/18 [History] Magnesium Oxide [Magnesium] 400 mg PO BID 09/03/18 [History] Metoprolol Tartrate [Lopressor] 150 mg PO BID 09/03/18 [History] Potassium Chloride 20 meq PO BID 09/03/18 [History] metroNIDAZOLE [Flagyl] 500 mg PO TID 09/03/18 [History] Past Medical History HEENT History: Reports: Cataract, Other (See Below) Other HEENT History: DYSPHAGIA Cardiovascular History: Reports: Afib, Arrhythmia, Blood Clots/VTE/DVT, CAD, High Cholesterol, Hypertension, Other (See Below) Other Cardiovascular History: MITRAL STENOSIS Respiratory History: Reports: Asthma, COPD Gastrointestinal History: Reports: None Genitourinary History: Reports: None 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: Musculoskeletal History: Reports: Fracture Neurological History: Reports: Other (See Below) Other Neuro History: tremors; TORTICOLLIS Psychiatric History: Reports: Anxiety Endocrine/Metabolic History: Reports: None Hematologic History: Reports: Other (See Below) Other Hematologic History: HX OF DVT OF LOWER EXTREMITY; GROUP HOME USE OF ANTICOAGULANTS Immunologic History: Reports: None Oncologic (Cancer) History: Reports: None Dermatologic History: Reports: Other (See Below) Other Dermatologic History: HX OF BASAL CELL CARCINOMA EXCISION - Past Surgical History HEENT Surgical History: Reports: Cataract Surgery, Other (See Below) Other HEENT Surgeries/Procedures: surgery right ear Cardiovascular Surgical History: Reports: Coronary Artery Bypass, Valve Replacement GI Surgical History: Reports: Appendectomy, Cholecystectomy, Other (See Below) Other GI Surgeries/Procedures: Had feeding tube for 1 1/2 years after bypass surgery in 2012 due to inability to swallow Female Surgical History: Reports: Hysterectomy Musculoskeletal Surgical History: Reports: ORIF Social & Family History - Family History Family Medical History: Noncontributory - Tobacco Use Smoking Status *Q: Never Smoker - Caffeine Use Caffeine Use: Reports: None - Recreational Drug Use Recreational Drug Use: No H&P Review of Systems - Review of Systems: Review Of Systems: ROS reveals no pertinent complaints other than HPI. Exam - Exam Exam: See Below - Vital Signs Vital Signs: Last Vital Signs Temp 97.4 F 09/03/18 13:59 Pulse 65 09/03/18 13:59 Resp 16 09/03/18 13:59 BP 121/62 09/03/18 13:59 Pulse Ox 94 L 09/03/18 13:59 Weight: 70.449 kg - Exam Quality Assessment: Supplemental Oxygen General: Alert, Oriented, 4 HEENT: PERRLA, Hearing Intact, Mucosa Moist & [place], Nares Patent, Normal Nasal Septum, Posterior Pharynx Clear, Conjunctiva Clear, EOMI, EACs Clear, TMs Clear Neck: Supple, Trachea Midline, 2 Lungs: Crackles Cardiovascular: Irregular Rhythm, Systolic Murmur GI/Abdominal Exam: Normal Bowel Sounds, Soft, Non-Tender, No Organomegaly, No Distention, No Abnormal Bruit, No Mass, Pelvis Stable (Female) Exam: Deferred Rectal (Female) Exam: Deferred Back Exam: Normal Inspection, Full Range of Motion, NT Extremities: Normal Inspection, Normal Range of Motion, Non-Tender, No Pedal Edema, Normal Capillary Refill Skin: Warm, Dry, Intact Neurological: Cranial Nerves Intact, Reflexes Equal Bilateral Neuro Extensive - Mental Status: Alert, Oriented x3, Normal Mood/Affect, Normal Cognition Neuro Extensive - Motor, Sensory, Reflexes: CN II-XII Intact, Normal Gait, Normal Reflexes Psychiatric: Alert, Normal Affect, Normal Mood - Problem List (1) Weakness SNOMED Code(s): 53906386 ICD Code: R53.1 - WEAKNESS Status: Acute Current Visit: Yes (2) Afib SNOMED Code(s): 67268486 ICD Code: I48.91 - UNSPECIFIED ATRIAL FIBRILLATION Status: Acute Current Visit: No Qualifiers: Atrial fibrillation type: chronic Qualified Code(s): I48.2 - Chronic atrial fibrillation (3) CAD (coronary artery disease) SNOMED Code(s): 51160879 ICD Code: I25.10 - ATHSCL HEART DISEASE OF [place] CORONARY ARTERY W/O ANG PCTRS Status: Chronic Current Visit: No Qualifiers: Associated angina: without angina (4) CAP (community acquired pneumonia) SNOMED Code(s): 229322470 ICD Code: J18.9 - PNEUMONIA, UNSPECIFIED ORGANISM Status: Acute Current Visit: No Qualifiers: (5) Chronic anticoagulation SNOMED Code(s): 328681589 ICD Code: Z79.01 - 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 Pharmacy to follow. Supratherapeutic today. (6) History of DVT (deep vein thrombosis) SNOMED Code(s): 498607889 ICD Code: Z86.718 - PERSONAL HISTORY OF OTHER VENOUS THROMBOSIS AND EMBOLISM Status: Acute Current Visit: No (7) History of ankle surgery SNOMED Code(s): 173840020 ICD Code: Z98.890 - OTHER SPECIFIED POSTPROCEDURAL STATES Status: Acute Current Visit: No (8) History of mitral valve replacement with bioprosthetic valve SNOMED Code(s): 353862344, 657477573, 3062848054838 ICD Code: Z95.3 - PRESENCE OF XENOGENIC HEART VALVE Status: Acute Current Visit: No Problem Details: Stable. (9) Chronic atrial fibrillation SNOMED Code(s): 107447917 ICD Code: I48.2 - CHRONIC ATRIAL FIBRILLATION Status: Chronic Current Visit: No (10) Hypertension SNOMED Code(s): 51796573 ICD Code: I10 - ESSENTIAL (PRIMARY) HYPERTENSION Status: Chronic Current Visit: No Problem Details: See above. Qualifiers: Hypertension type: essential hypertension Problem List Initiated/Reviewed/Updated: Yes Orders Last 24hrs: Active Orders 24 hr Category Date Time Status Patient Status [ADT] Routine ADT 09/03/18 13:42 Active Dressing Change [Wound Care] [RC] ASDIRECTED Care 09/05/18 09:00 Active Height and Weight [RC] .thur Care 09/03/18 13:42 Active Oxygen Therapy [RC] PRN Care 09/03/18 13:42 Active Up With Assistance [RC] ASDIRECTED Care 09/03/18 13:42 Active VTE/DVT Education [RC] Per Unit Routine Care 09/03/18 13:42 Active Vital Signs [RC] PER UNIT ROUTINE Care 09/03/18 13:42 Active OT Evaluation and Treatment [CONS] Routine Cons 09/03/18 13:42 Active PT Evaluation and Treatment [CONS] Routine Cons 09/03/18 13:42 Active Heart Healthy Diet [DIET] Diet 09/03/18 Dinner Active Regular Diet [DIET] Diet 09/03/18 Breakfast Active INR,PT,PROTHROMBIN TIME [COAG] DAILY Lab 09/04/18 13:32 Ordered INR,PT,PROTHROMBIN TIME [COAG] DAILY Lab 09/05/18 13:32 Ordered INR,PT,PROTHROMBIN TIME [COAG] DAILY Lab 09/06/18 13:32 Ordered INR,PT,PROTHROMBIN TIME [COAG] DAILY Lab 09/07/18 13:32 Ordered INR,PT,PROTHROMBIN TIME [COAG] DAILY Lab 09/08/18 13:32 Ordered ALPRAZolam [Xanax] Med 09/03/18 14:05 Active 0.5 mg PO TID PRN Acetaminophen/HYDROcodone [[place] 325-5 MG] Med 09/03/18 13:43 Active 1 tab PO Q6H PRN Albuterol [Ventolin HFA] Med 09/03/18 14:09 Active 0 gm INH Q4H PRN Albuterol/Ipratropium [DuoNeb 3.0-0.5 MG/3 ML] Med 09/03/18 13:43 Active 3 ml INH Q4H PRN Aspirin Med 09/04/18 09:00 Active 81 mg PO DAILY Budesonide/Formoterol Fumarate [Symbicort 80-4.5 Mcg Med 09/03/18 21:00 Active Inhaler] 0 puff INH BID Ciprofloxacin [Ciprofloxacin HCl] Med 09/03/18 18:00 Active 500 mg PO BID@0600,1800 Diltiazem [Cardizem CD] Med 09/04/18 09:00 Active 120 mg PO DAILY Escitalopram [Lexapro] Med 09/04/18 09:00 Active 10 mg PO DAILY Magnesium Oxide Med 09/03/18 21:00 Active 400 mg PO BID Metoprolol Tartrate [Lopressor] Med 09/03/18 21:00 Active 150 mg PO BID Potassium Chloride [Klor-Con M20] Med 09/03/18 21:00 Active 20 meq PO BID Simvastatin [Zocor] Med 09/03/18 21:00 Active 5 mg PO BEDTIME Warfarin Sliding Scale [Coumadin Sliding Scale] Med 09/03/18 13:45 Pending 1 each PO ASDIRECTED metroNIDAZOLE [Flagyl] Med 09/03/18 14:00 Active 500 mg PO TID Resuscitation Status Routine Resus Stat 09/03/18 13:42 Ordered Medication Orders Hydrocodone Bitart/Acetaminophen ([place] 325-5 Mg) 1 tab PO Q6H PRN PRN Reason: Pain Albuterol (Ventolin Hfa) 0 gm INH Q4H PRN PRN Reason: Wheezing Albuterol/Ipratropium (Duoneb 3.0-0.5 Mg/3 Ml) 3 ml INH Q4H PRN PRN Reason: Shortness of Breath Alprazolam (Xanax) 0.5 mg PO TID PRN PRN Reason: ANXIETY Last Admin: 09/03/18 15:29 Dose: 0.5 mg Aspirin (Aspirin) 81 mg PO DAILY [facility] Ciprofloxacin (Ciprofloxacin Hcl) 500 mg PO BID@0600,1800 [facility] Stop: 09/08/18 06:01 Diltiazem HCl (Cardizem Cd) 120 mg PO DAILY [facility] Escitalopram Oxalate (Lexapro) 10 mg PO DAILY [facility] Magnesium Oxide (Magnesium Oxide) 400 mg PO BID [facility] Metoprolol Tartrate (Lopressor) 150 mg PO BID [facility] Metronidazole (Flagyl) 500 mg PO TID [facility] Stop: 09/08/18 09:01 Last Admin: 09/03/18 15:04 Dose: 500 mg Budesonide/Formoterol Fumarate (Symbicort 80-4.5 Mcg) *Ptom 0 puff INH BID [facility] Potassium Chloride (Klor-Con M20) 20 meq PO BID [facility] Simvastatin (Zocor) 5 mg PO BEDTIME [place] Warfarin Sodium (Coumadin Sliding Scale) 1 each PO ASDIRECTED [facility] Assessment/Plan Comment:: Admit to swing bed, continue with oral antibiotics, oxygen supplementation when necessary. Consulted physical and occupational therapy. Resume home medications.
[2018-09-03] MEDS: Ciprofloxacin 500 MG Tab PO SCH (17:12)
[2018-09-03] MEDS ORDERED: Bacitracin/Neomycin/Polymyxin B Oint 28.4 GM Tube ONE (20:16)
[2018-09-03] MEDS: FORMOTEROL FUMARATE INH SCH (20:19)
[2018-09-03] MEDS: BUDESONIDE INH SCH (20:19)
[2018-09-03] MEDS: Potassium Chloride 20 MEQ Tab.ER PO SCH (20:21)
[2018-09-03] MEDS: Metoprolol Tartrate 50 MG Tab PO SCH (20:21)
[2018-09-03] MEDS: Simvastatin 10 MG Tab PO SCH (20:23)
[2018-09-03] MEDS: Magnesium Oxide 400 MG Tab PO SCH (20:23)
[2018-09-03] MEDS ORDERED: Bacitracin Oint 28.35 GM Tube TOP SCH (21:00)
[2018-09-04] MEDS: Ciprofloxacin 500 MG Tab PO SCH ×2 (06:07→18:30)
[2018-09-04] MEDS: Aspirin 81 MG Tab.Chew PO SCH (08:12)
[2018-09-04] MEDS: metroNIDAZOLE 500 MG Tab PO SCH ×3 (08:20→21:13)
[2018-09-04] MEDS: Escitalopram 10 MG Tab PO SCH (08:20)
[2018-09-04] MEDS: Diltiazem 120 MG Cap.CD PO SCH (08:21)
[2018-09-04] MEDS: Potassium Chloride 20 MEQ Tab.ER PO SCH ×2 (08:22→21:13)
[2018-09-04] MEDS: Magnesium Oxide 400 MG Tab PO SCH ×2 (08:22→21:16)
[2018-09-04] MEDS: Metoprolol Tartrate 50 MG Tab PO SCH ×2 (08:23→21:14)
[2018-09-04] MEDS: BUDESONIDE INH SCH ×2 (08:24→21:12)
[2018-09-04] MEDS: FORMOTEROL FUMARATE INH SCH ×2 (08:24→21:12)
[2018-09-04] MEDS ORDERED: Warfarin 2.5 MG Tab PO SCH (09:00)
[2018-09-04] MEDS: Ondansetron 4 MG Tab.DIS PO PRN (10:31)
[2018-09-04] MEDS: Bacitracin/Neomycin/Polymyxin B Oint 28.4 GM Tube TOP SCH ×3 (10:32→21:17)
--- NOTE | 2018-09-04 11:08 | PN ---
DATE SEEN: 09/04/2018 OBJECTIVE: Kati Sharpe is a 78-year-old female admitted to swing bed on 09/03. Complicated history. Troublesome right ankle fracture with surgical intervention; hospitalization at [facility] with pneumonia, thought to be aspiration. Readmitted to swing bed. MEDICATIONS ON BOARD: Include: 1. Albuterol and DuoNeb. 2. Hydrocodone for pain. 3. Alprazolam for anxiety. 4. 81 mg baby aspirin. 5. Ciprofloxacin 500 mg b.i.d. 6. Diltiazem. 7. Lexapro. 8. Magnesium oxide. 9. Metoprolol. 10.Metronidazole. 11.Bacitracin ointment. 12.Symbicort. 13.Zofran. 14.Potassium. 15.Simvastatin. 16.Warfarin. LABORATORY STUDIES: Performed this morning. White count 6300, hemoglobin 10.4, hematocrit 31.9. INR 2.88. Normal indices, though potassium 3.3, calcium 7.9. OBJECTIVE: VITAL SIGNS: 122/62, 82, 75, 36.3, 96% on 0.5 L. GENERAL: Appears comfortable. HEENT: Unremarkable. NECK: Supple. Thyroid small. CHEST: Decreased breath sounds, right lower lobe. HEART: No ectopy or murmur. ABDOMEN: Benign. EXTREMITIES: Right ankle wound not examined. ASSESSMENT: 1. Ankle fracture. 2. Pneumonia. PLAN: X-ray will be obtained to look for stability. We will potassium, local care, and precautions. Thickened liquids on board. /[id number] Tamara DAUGHERTY/ROSANA
--- NOTE | 2018-09-04 13:22 | PCM.SN ---
- Free Text/Narrative Note: Pt still has weeping area in mid portion of incision on lateral ankle. Applied 13cm Prevena wound vac. Will take off next .
--- NOTE | 2018-09-04 15:26 | CR ---
INDICATION: Cough, pneumonia. CHEST: AP and lateral views of the chest were obtained 09/04/18 and compared with 03/26/17 and 03/23/17. The heart is enlarged. Post median sternotomy change is noted. The aorta is tortuous and calcified in the arch and descending portion. There are pleural parenchymal changes at both lung bases, which are at least partially new, compared with previous studies, and are compatible with pneumonia and pleuritis, possibly some atelectasis. Findings are also compatible with COPD and osteoporosis. IMPRESSION: 1. Probable bibasilar pneumonia and pleuritis, possibly some atelectasis. A degree of fibrosis could also be present. 2. ASHD with cardiomegaly and post median sternotomy change. 3. Probable COPD. 4. Probable osteoporosis. MTDD
[2018-09-04] MEDS ORDERED: Warfarin 2.5 MG Tab PO ONE ×2 (16:00)
[2018-09-04] MEDS: Acetaminophen/HYDROcodone 325-5 MG Tab PO PRN (18:28)
[2018-09-04] MEDS: Simvastatin 10 MG Tab PO SCH (21:16)
[2018-09-04] MEDS: ALPRAZolam 0.5 MG Tab PO PRN (21:34)
[2018-09-05] MEDS: Ciprofloxacin 500 MG Tab PO SCH ×2 (05:51→17:56)
[2018-09-05] MEDS: Acetaminophen/HYDROcodone 325-5 MG Tab PO PRN ×3 (08:01→20:37)
[2018-09-05] MEDS: Diltiazem 120 MG Cap.CD PO SCH (08:04)
[2018-09-05] MEDS: BUDESONIDE INH SCH ×2 (08:04→20:23)
[2018-09-05] MEDS: metroNIDAZOLE 500 MG Tab PO SCH ×3 (08:04→20:24)
[2018-09-05] MEDS: FORMOTEROL FUMARATE INH SCH ×2 (08:04→20:23)
[2018-09-05] MEDS: Magnesium Oxide 400 MG Tab PO SCH ×2 (08:04→20:24)
[2018-09-05] MEDS: Potassium Chloride 20 MEQ Tab.ER PO SCH ×2 (08:05→20:24)
[2018-09-05] MEDS: Aspirin 81 MG Tab.Chew PO SCH (08:05)
[2018-09-05] MEDS: Escitalopram 10 MG Tab PO SCH (08:05)
[2018-09-05] MEDS: Metoprolol Tartrate 50 MG Tab PO SCH ×2 (08:05→20:23)
[2018-09-05] MEDS: Bacitracin/Neomycin/Polymyxin B Oint 28.4 GM Tube TOP SCH ×3 (08:05→20:25)
--- NOTE | 2018-09-05 10:42 | PN ---
DATE SEEN: 09/05/2018 SUBJECTIVE: Izabel Sharpe is a delightful 78-year-old, female, who has had a rather protracted course. Had a complicated ankle fracture, surgical intervention, discharged home, re-admitted to [facility] with pneumonia and readmitted to [place] for rehab purposes. DIAGNOSTIC DATA: Chest x-ray, 09/04/2018 revealed pneumonia and fibrosis, cardiomegaly, and sternotomy changes. LABORATORY STUDIES: 09/04/2018, CBC unremarkable, hemoglobin 10.4, INR 2.88, electrolytes satisfactory. Had wound VAC placed on the right ankle by Dr. Pfeiffer. OBJECTIVE: VITAL SIGNS: 121/72, 82, 36.3 degrees Fahrenheit, 0.5 L on 96%. GENERAL: Appears comfortable. Speech was fluent. HEENT: Mouth and oropharynx clear. NECK: Benign. CHEST: Decreased breath sounds at both bases. HEART: Occasional ectopy. No significant murmur. ABDOMEN: Benign. EXTREMITIES: Wound VAC in place, right lateral ankle. Medial ankle scar intact. ASSESSMENT: 1. Resolving pneumonia. 2. Complicated right ankle fracture. PLAN: Medications, care, and treatment appropriate, no changes required. /[id number] DAT/ROSANA
[2018-09-05] MEDS: Warfarin 2.5 MG Tab PO SCH (16:00)
[2018-09-05] MEDS: Simvastatin 10 MG Tab PO SCH (20:24)
[2018-09-05] MEDS: ALPRAZolam 0.5 MG Tab PO PRN (20:37)
[2018-09-06] MEDS: Ciprofloxacin 500 MG Tab PO SCH ×2 (05:54→18:05)
[2018-09-06] MEDS: Ondansetron 4 MG Tab.DIS PO PRN (07:32)
[2018-09-06] MEDS ORDERED: Aluminum Hydroxide/Magnesium Hydroxide Susp 30 ML Cup PO PRN (07:59)
[2018-09-06] MEDS: Bacitracin/Neomycin/Polymyxin B Oint 28.4 GM Tube TOP SCH ×3 (08:00→20:40)
[2018-09-06] MEDS: Acetaminophen/HYDROcodone 325-5 MG Tab PO PRN ×2 (08:49→15:22)
[2018-09-06] MEDS: ALPRAZolam 0.5 MG Tab PO PRN ×3 (09:05→20:53)
[2018-09-06] MEDS: FORMOTEROL FUMARATE INH SCH ×2 (11:48→20:38)
[2018-09-06] MEDS: BUDESONIDE INH SCH ×2 (11:48→20:38)
[2018-09-06] MEDS: Magnesium Oxide 400 MG Tab PO SCH ×2 (11:49→20:40)
[2018-09-06] MEDS: Escitalopram 10 MG Tab PO SCH (11:50)
[2018-09-06] MEDS: Aspirin 81 MG Tab.Chew PO SCH (11:50)
[2018-09-06] MEDS: Diltiazem 120 MG Cap.CD PO SCH (11:50)
[2018-09-06] MEDS: metroNIDAZOLE 500 MG Tab PO SCH ×3 (11:52→20:39)
[2018-09-06] MEDS: Potassium Chloride 20 MEQ Tab.ER PO SCH ×2 (11:52→20:39)
[2018-09-06] MEDS: Metoprolol Tartrate 50 MG Tab PO SCH ×2 (11:53→20:39)
--- NOTE | 2018-09-06 12:09 | PN ---
DATE SEEN: 09/06/2018 SUBJECTIVE: Ms. Kati Sharpe is a 78-year-old, female, seen today for review. Initial issue ankle fracture, complicated pneumonia, readmission for swing bed status. Has adaptive vacuum on the right ankle lesion. Being followed by Dr. Pfeiffer. Recent x-ray on 09/04/2018 revealed a pneumonia in resolution. LABORATORY STUDIES: On 09/04/2018, hemoglobin 10.4, INR 2.88, normal indices. OBJECTIVE: VITAL SIGNS: 36.4, 89, 153/88, 17, 93% on room air. GENERAL: Appears comfortable. NECK: Benign. Thyroid, small. CHEST: Clear in all lung gu. Decreased breath sounds at both bases. HEART: Heart sounds occasional ectopy. No significant murmur. ABDOMEN: Benign. VAC in place, right ankle. Medial ankle scar intact. ASSESSMENT: 1. Resolving pneumonia. 2. Complicated right ankle fracture. PLAN: Medications, care, and treatment Orthopedic per Dr. Pfeiffer, complementary care and well being. /[id number] [id number] /ROSANA
[2018-09-06] MEDS: Warfarin 2.5 MG Tab PO SCH (17:00)
[2018-09-06] MEDS: Simvastatin 10 MG Tab PO SCH (20:40)
[2018-09-07] MEDS: Ciprofloxacin 500 MG Tab PO SCH ×2 (05:41→17:46)
[2018-09-07] MEDS: ALPRAZolam 0.5 MG Tab PO PRN ×2 (05:45→20:19)
[2018-09-07] MEDS: Aspirin 81 MG Tab.Chew PO SCH (08:48)
[2018-09-07] MEDS: Diltiazem 120 MG Cap.CD PO SCH (08:49)
[2018-09-07] MEDS: metroNIDAZOLE 500 MG Tab PO SCH ×3 (08:50→21:18)
[2018-09-07] MEDS: Potassium Chloride 20 MEQ Tab.ER PO SCH ×2 (08:51→21:18)
[2018-09-07] MEDS: Escitalopram 10 MG Tab PO SCH (08:53)
[2018-09-07] MEDS: Metoprolol Tartrate 50 MG Tab PO SCH ×2 (08:54→21:18)
[2018-09-07] MEDS: Magnesium Oxide 400 MG Tab PO SCH ×2 (08:56→21:19)
[2018-09-07] MEDS: Bacitracin/Neomycin/Polymyxin B Oint 28.4 GM Tube TOP SCH ×3 (08:57→21:19)
[2018-09-07] MEDS: FORMOTEROL FUMARATE INH SCH ×2 (08:58→21:17)
[2018-09-07] MEDS: BUDESONIDE INH SCH ×2 (08:58→21:17)
--- NOTE | 2018-09-07 11:10 | PN ---
DATE SEEN: 09/07/2018 SUBJECTIVE: Kati Sharpe is a 78-year-old female, admitted to concerns initially, surgical left ankle fracture, subsequent pneumonia hospitalized in [place] back now for rehab and intervention. Living situation appears to be complementary, son from [place] will be coming to live with her until she is independent. Wound VAC in place. Right ankle Dr. Pfeiffre to proceed with care and intervention. Pain otherwise controlled. Urinalysis 09/06/2018 within normal limits. OBJECTIVE: VITAL SIGNS: 36.3, 89 is the pulse, 133/83, 92 on room air. GENERAL: Appears comfortable. NECK: Benign. Thyroid small. CHEST: Clear in all lung gu. IMAGING: Recent x-ray noted, heart sounds distant without ectopy or murmur. ASSESSMENT: 1. Pneumonia, resolving. 2. Ankle fracture, under care. PLAN: Medications, care, and treatment appropriate, expectations from there accordingly. /[id number] DAT/ROSANA
[2018-09-07] MEDS ORDERED: Warfarin 2.5 MG Tab PO ONE (16:00)
[2018-09-07] MEDS: Simvastatin 10 MG Tab PO SCH (21:20)
[2018-09-07] MEDS: Acetaminophen/HYDROcodone 325-5 MG Tab PO PRN (21:20)
[2018-09-08] MEDS: Ciprofloxacin 500 MG Tab PO SCH (06:26)
[2018-09-08] MEDS: Aspirin 81 MG Tab.Chew PO SCH (09:20)
[2018-09-08] MEDS: Diltiazem 120 MG Cap.CD PO SCH (09:20)
[2018-09-08] MEDS: Escitalopram 10 MG Tab PO SCH (09:22)
[2018-09-08] MEDS: Potassium Chloride 20 MEQ Tab.ER PO SCH ×2 (09:22→20:06)
[2018-09-08] MEDS: Metoprolol Tartrate 50 MG Tab PO SCH ×2 (09:23→20:09)
[2018-09-08] MEDS: Magnesium Oxide 400 MG Tab PO SCH ×2 (09:24→20:07)
[2018-09-08] MEDS: Bacitracin/Neomycin/Polymyxin B Oint 28.4 GM Tube TOP SCH ×3 (09:25→20:07)
[2018-09-08] MEDS: FORMOTEROL FUMARATE INH SCH ×2 (09:27→20:05)
[2018-09-08] MEDS: BUDESONIDE INH SCH ×2 (09:27→20:05)
[2018-09-08] MEDS: metroNIDAZOLE 500 MG Tab PO SCH (09:29)
--- NOTE | 2018-09-08 10:58 | PN ---
DATE SEEN: 09/08/2018 SUBJECTIVE: Kati Sharpe is a young lady, 78 years of age, seen today for review. Makes comment about nocturia x5, decreased stream. Recent urinalysis, 09/06/2018, perfectly clear. There has been no burning. Wound VAC in place. Plans to continue till . Otherwise, in good spirits. OBJECTIVE: VITAL SIGNS: 133/79, 95. ENT: Mouth and oropharynx clear. NECK: Benign. CHEST: Clear in all lung gu. HEART: No ectopy or murmur. ABDOMEN: Benign. IMAGING: X-ray of chest, 09/04/2018, revealed improving pneumonia. PLAN: We will document voided amount and do postvoid bladder scan, medications under consideration. /[id number] DAT/ROSANA
[2018-09-08] MEDS: ALPRAZolam 0.5 MG Tab PO PRN ×2 (12:06→20:14)
[2018-09-08] MEDS: Warfarin 5 MG Tab PO SCH (16:38)
[2018-09-08] MEDS: Oxybutynin 5 MG Tab PO SCH (20:07)
[2018-09-08] MEDS: Simvastatin 10 MG Tab PO SCH (20:08)
[2018-09-08] MEDS: Acetaminophen/HYDROcodone 325-5 MG Tab PO PRN (21:24)
[2018-09-09] MEDS: FORMOTEROL FUMARATE INH SCH ×2 (08:45→20:15)
[2018-09-09] MEDS: BUDESONIDE INH SCH ×2 (08:45→20:15)
[2018-09-09] MEDS: Aspirin 81 MG Tab.Chew PO SCH (08:45)
[2018-09-09] MEDS: Diltiazem 120 MG Cap.CD PO SCH (08:46)
[2018-09-09] MEDS: Escitalopram 10 MG Tab PO SCH (08:47)
[2018-09-09] MEDS: Potassium Chloride 20 MEQ Tab.ER PO SCH ×2 (08:47→20:16)
[2018-09-09] MEDS: Oxybutynin 5 MG Tab PO SCH ×2 (08:48→20:17)
[2018-09-09] MEDS: Metoprolol Tartrate 50 MG Tab PO SCH ×2 (08:48→20:19)
[2018-09-09] MEDS: Magnesium Oxide 400 MG Tab PO SCH ×2 (08:48→20:16)
[2018-09-09] MEDS: Bacitracin/Neomycin/Polymyxin B Oint 28.4 GM Tube TOP SCH ×3 (08:49→20:17)
[2018-09-09] MEDS: ALPRAZolam 0.5 MG Tab PO PRN ×3 (08:52→20:24)
--- NOTE | 2018-09-09 12:18 | PN ---
DATE SEEN: 09/09/2018 SUBJECTIVE: Kati Sharpe is a 78-year-old female seen today for review. Healing postoperative right ankle fracture, vacuum intact, and recent pneumonia. Has completed her antibiotics. Recent x-ray, 09/04/2017, revealed stability in terms of pneumonia. Otherwise doing better, ambulating with greater success. OBJECTIVE: VITAL SIGNS: 111/70, 83 is the mean blood pressure; 36.3; pulse 96 and regular. GENERAL: Appears comfortable. NECK: Benign. Thyroid small. CHEST: Good air exchange. Clear in all lung gu. HEART: No ectopy or murmur. ABDOMEN: Benign. EXTREMITIES: Right ankle, medial incision healing well. Left ankle, vacuum in place. ASSESSMENT: 1. Resolving pneumonia. 2. Ankle fracture, under therapy. PLAN: Medications, care, and treatment appropriate. Likely vacuum until . Plan to discharge probably Friday. /[id number] [id number] DAT/ROSANA
[2018-09-09] MEDS ORDERED: Warfarin 2.5 MG Tab PO SCH (16:00)
[2018-09-09] MEDS: Simvastatin 10 MG Tab PO SCH (20:18)
[2018-09-10] MEDS: ALPRAZolam 0.5 MG Tab PO PRN ×3 (08:09→21:30)
[2018-09-10] MEDS: Escitalopram 10 MG Tab PO SCH (08:10)
[2018-09-10] MEDS: Aspirin 81 MG Tab.Chew PO SCH (08:10)
[2018-09-10] MEDS: Magnesium Oxide 400 MG Tab PO SCH ×2 (08:10→21:27)
[2018-09-10] MEDS: Diltiazem 120 MG Cap.CD PO SCH (08:10)
[2018-09-10] MEDS: Potassium Chloride 20 MEQ Tab.ER PO SCH ×2 (08:11→21:27)
[2018-09-10] MEDS: Metoprolol Tartrate 50 MG Tab PO SCH ×2 (08:11→21:27)
[2018-09-10] MEDS: Oxybutynin 5 MG Tab PO SCH ×2 (08:12→21:28)
[2018-09-10] MEDS: Bacitracin/Neomycin/Polymyxin B Oint 28.4 GM Tube TOP SCH ×3 (08:13→21:28)
[2018-09-10] MEDS: BUDESONIDE INH SCH ×2 (08:15→21:26)
[2018-09-10] MEDS: FORMOTEROL FUMARATE INH SCH ×2 (08:15→21:26)
--- NOTE | 2018-09-10 11:18 | PN ---
DATE SEEN: 09/10/2018 SUBJECTIVE: Izabel Sharpe is a delightful 78-year-old female seen today for a general review. Likely wound VAC to be removed today. Doing well. Pain is controlled. Pneumonia appears to be clinically stable. OBJECTIVE: VITAL SIGNS: Stable. NECK: Benign. Thyroid small. CHEST: Good air exchange throughout all lung gu, anterior and posterior. HEART: No ectopy or murmur. ABDOMEN: Benign. EXTREMITIES: Medial wound healing well. Wound VAC in place, right side. ASSESSMENT: 1. Pneumonia. 2. Ankle fracture. PLAN: Recommendation as above, likely discharge soon. /[id number] /ROSANA
--- NOTE | 2018-09-10 13:53 | PCM.SN ---
- Free Text/Narrative Note: Removed vac today. No drainage in vac. Quarter sized area of macerated skin. No drainage. Wiped area with q-tip and was purely superficial. 1) Apply band aid over area daily 2) may shower 3) do not submerge 4) Call if increased drainage or redness 5) continue non weight bearing, may be out of boot 6) may apply lotion to remainder of wound 7) f/u in orthopedic clinic with Dr. Pfeiffer 09/23/18 at 10:45am
[2018-09-10] MEDS: Acetaminophen/HYDROcodone 325-5 MG Tab PO PRN (14:12)
[2018-09-10] MEDS: Warfarin 5 MG Tab PO SCH (17:05)
[2018-09-10] MEDS: Simvastatin 10 MG Tab PO SCH (21:28)
[2018-09-11] MEDS: Aspirin 81 MG Tab.Chew PO SCH (09:12)
[2018-09-11] MEDS: FORMOTEROL FUMARATE INH SCH (09:12)
[2018-09-11] MEDS: BUDESONIDE INH SCH (09:12)
[2018-09-11] MEDS: Potassium Chloride 20 MEQ Tab.ER PO SCH (09:13)
[2018-09-11] MEDS: Diltiazem 120 MG Cap.CD PO SCH (09:13)
[2018-09-11] MEDS: Escitalopram 10 MG Tab PO SCH (09:13)
[2018-09-11] MEDS: Metoprolol Tartrate 50 MG Tab PO SCH (09:14)
[2018-09-11] MEDS: Magnesium Oxide 400 MG Tab PO SCH (09:15)
[2018-09-11] MEDS: Bacitracin/Neomycin/Polymyxin B Oint 28.4 GM Tube TOP SCH (09:15)
[2018-09-11] MEDS: Oxybutynin 5 MG Tab PO SCH (09:15)
[2018-09-11] MEDS: ALPRAZolam 0.5 MG Tab PO PRN ×2 (09:22→14:04)
--- NOTE | 2018-09-12 10:20 | DISCH ---
DISCHARGE DATE: 09/11/2018 REASON FOR ADMISSION: 1. Pneumonia, hospital-acquired. 2. General weakness. 3. Status post ORIF, right ankle. 4. History of hypertension. 5. Chronic atrial fibrillation. 6. History of mitral valve replacement. 7. History of deep venous thrombosis. 8. Weakness. BRIEF HISTORY AND HOSPITAL COURSE: This is a 78-year-old female who was admitted on the after spending some time at [place] with pneumonia. She was here for physical therapy and rehab and strengthening before going home. She has done pretty good with physical therapy and finished oral antibiotics. She is due to go home today and she will go home on hydrocodone 1 tablet daily p.r.n. for pain, oxybutynin 5 mg b.i.d., metoprolol was increased to 150 mg b.i.d., and she was started on KCl 20 mEq daily for hypokalemia. FOLLOWUP: She will be seen by Home Health to continue therapy and medication monitoring and also see Dr. Pfeiffer as an outpatient for Orthopedics and her PCP in the office next week. Note that I spent more than 35 minutes in the discharge of the patient. /[id number] KIRSTY/ROSANA
== END 2018-09-11 14:10 | disposition home health service (06) | DRG 947 ==
LOC: FB.MS 12:25
PROVIDERS: ADMIT Family Medicine; ATTEND Family Medicine
DX: R53.1 Weakness (principal); J18.9 Pneumonia, unspecified organism; J44.0 Chronic obstructive pulmonary disease with (acute) lower respiratory infection; S82.891D Other fracture of right lower leg, subsequent encounter for closed fracture with routine healing; I10 Essential (primary) hypertension; Z98.890 Other specified postprocedural states; I48.2 Chronic atrial fibrillation; Z79.01 Long term (current) use of anticoagulants; F41.1 Generalized anxiety disorder; I25.10 Atherosclerotic heart disease of native coronary artery without angina pectoris; Z86.718 Personal history of other venous thrombosis and embolism; E78.00 Pure hypercholesterolemia, unspecified; I34.2 Nonrheumatic mitral (valve) stenosis; Z85.828 Personal history of other malignant neoplasm of skin; E87.6 Hypokalemia; Z95.1 Presence of aortocoronary bypass graft; Z95.2 Presence of prosthetic heart valve; Z90.49 Acquired absence of other specified parts of digestive tract; Z90.710 Acquired absence of both cervix and uterus; Z79.82 Long term (current) use of aspirin; Z88.5 Allergy status to narcotic agent; Z88.2 Allergy status to sulfonamides; Z88.8 Allergy status to other drugs, medicaments and biological substances
CPT/HCPCS: 36415; 51798; 71046; 80048; 81001; 85025; 85610; 94150; 97110-GO; 97110-GP; 97116-GP; 97161-GP; 97165-GO; 97530-GO; 97530-GP; 97535-GO; 97542-GO; A9270-GY

== ENCOUNTER 2019-03-15 20:50 | Emergency (ER) | payer MEDICARE ==
[2019-03-15] MEDS ORDERED: Albuterol/Ipratropium 3.0-0.5 MG/3 ML Neb Soln NEB ONE (21:04)
[2019-03-15] MEDS: methylPREDNISolone Sodium Succinate 125 MG/2 ML SDV IM ONE ×2 (21:09→21:43)
[2019-03-15] MEDS ORDERED: methylPREDNISolone Sodium Succinate 125 MG/2 ML SDV IVPUSH ONE (21:14)
[2019-03-15] MEDS ORDERED: Diltiazem 25 MG/5 ML SDV IVPUSH ONE (22:12)
[2019-03-15] MEDS ORDERED: Azithromycin 500 MG Tab PO ONE (22:48)
--- NOTE | 2019-03-15 22:48 | EDM.PDOC ---
ED HPI GENERAL MEDICAL PROBLEM - General Chief Complaint: Respiratory Problem Stated Complaint: SOB Time Seen by Provider: 03/15/19 20:55 Source of Information: Reports: Patient History Limitations: Reports: No Limitations - History of Present Illness INITIAL COMMENTS - FREE TEXT/NARRATIVE: Patient presented to the ED because of coughing and dyspnea which started this morning. She denies having any fever or chills. She tried using her inhaler but didn't help. - Related Data Allergies Allergy/AdvReac Type Severity Reaction Status Date / Time meperidine HCl [From Demerol] Allergy Tachycardia Verified 08/11/18 08:49 nystatin Allergy Rash Verified 08/11/18 08:49 propranolol HCl Allergy Tachycardia Verified 08/11/18 08:49 [From Inderal LA] Sulfa (Sulfonamide Allergy flu like Verified 08/11/18 08:49 Antibiotics) symptoms Home Meds: Home Meds Simvastatin 5 mg PO BEDTIME 10/13/13 [History] Albuterol Sulfate [Proair Hfa] 2 puff IH Q4H PRN 03/23/17 [History] Aspirin 81 mg PO DAILY 03/23/17 [History] Warfarin [Coumadin] 2.5 - 5 mg PO DAILY 03/23/17 [History] ALPRAZolam [Xanax] 0.5 mg PO TID PRN 03/27/17 [History] Albuterol/Ipratropium [DuoNeb 3.0-0.5 MG/3 ML] 1 unit INH Q4H PRN 08/10/18 [ History] Budesonide/Formoterol Fumarate [Symbicort 80-4.5 MCG] 2 puff INH BID 08/10/18 [ History] Diltiazem HCl [Cartia Xt] 120 mg PO DAILY 08/10/18 [History] Escitalopram [Lexapro] 10 mg PO DAILY 08/10/18 [History] Magnesium Oxide [Magnesium] 400 mg PO BID 09/03/18 [History] Acetaminophen/HYDROcodone [Wood 325-5 MG] 1 tab PO DAILY PRN #30 tablet [Rx] Metoprolol Tartrate [Lopressor] 150 mg PO BID #60 tablet 09/11/18 [Rx] Oxybutynin 5 mg PO BID #60 tablet 09/11/18 [Rx] Potassium Chloride 20 meq PO DAILY #30 tablet.er 09/11/18 [Rx] Azithromycin 250 mg PO DAILY #6 tablet 03/15/19 [Rx] predniSONE [Prednisone] 40 mg PO DAILY #10 tablet 03/15/19 [Rx] Past Medical History HEENT History: Reports: Cataract, Other (See Below) Other HEENT History: DYSPHAGIA Cardiovascular History: Reports: Afib, Arrhythmia, Blood Clots/VTE/DVT, CAD, High Cholesterol, Hypertension, Other (See Below) Other Cardiovascular History: MITRAL STENOSIS Respiratory History: Reports: Asthma, COPD Gastrointestinal History: Reports: None Genitourinary History: Reports: None 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 History: Reports: Fracture Neurological History: Reports: Other (See Below) Other Neuro History: tremors; TORTICOLLIS Psychiatric History: Reports: Anxiety Endocrine/Metabolic History: Reports: None Hematologic History: Reports: Other (See Below) Other Hematologic History: HX OF DVT OF LOWER EXTREMITY; RESIDENTIAL USE OF ANTICOAGULANTS Immunologic History: Reports: None Oncologic (Cancer) History: Reports: None Dermatologic History: Reports: Other (See Below) Other Dermatologic History: HX OF BASAL CELL CARCINOMA EXCISION - Past Surgical History HEENT Surgical History: Reports: Cataract Surgery, Other (See Below) Other HEENT Surgeries/Procedures: surgery right ear Cardiovascular Surgical History: Reports: Coronary Artery Bypass, Valve Replacement GI Surgical History: Reports: Appendectomy, Cholecystectomy, Other (See Below) Other GI Surgeries/Procedures: Had feeding tube for 1 1/2 years after bypass surgery in 2012 due to inability to swallow Female Surgical History: Reports: Hysterectomy Musculoskeletal Surgical History: Reports: ORIF Social & Family History - Family History Family Medical History: Noncontributory - Caffeine Use Caffeine Use: Reports: None ED ROS GENERAL - Review of Systems Review Of Systems: See Below Constitutional: Reports: No Symptoms HEENT: Reports: No Symptoms Respiratory: Reports: Shortness of Breath, Cough. Denies: Sputum Cardiovascular: Reports: No Symptoms Endocrine: Reports: No Symptoms : Reports: No Symptoms Musculoskeletal: Reports: No Symptoms Skin: Reports: No Symptoms Neurological: Reports: No Symptoms Psychiatric: Reports: No Symptoms ED EXAM, GENERAL - Physical Exam Exam: See Below Exam Limited By: No Limitations General Appearance: Alert, No Apparent Distress Nose: Normal Inspection, Normal Mucosa, No Blood Throat/Mouth: Normal Inspection, Normal Lips, Normal Teeth, Normal Gums, Normal Oropharynx, Normal Voice, No Airway Compromise Head: Atraumatic, Normocephalic Neck: Normal Inspection, Supple, Non-Tender, Full Range of Motion Respiratory/Chest: Rhonchi, Wheezing. No: No Accessory Muscle Use, Decreased Breath Sounds, Rales Cardiovascular: Normal Peripheral Pulses, Regular Rate, Rhythm, No Edema, No Gallop, No JVD, No Murmur, No Rub GI/Abdominal: Normal Bowel Sounds, Soft, Non-Tender, No Organomegaly, No Distention, No Abnormal Bruit Rectal (Female) Exam: Normal Exam, Normal Rectal Tone Back Exam: Normal Inspection, Full Range of Motion Extremities: Normal Inspection, Normal Range of Motion, No Pedal Edema, Normal Capillary Refill Neurological: Alert, Oriented, CN II-XII Intact, Normal Cognition Course - Vital Signs Text/Narrative:: labs reviewed with patient and her daughter CXR-small pleural eff and or infiltrate BNP-elevated trop-neg duoneb x1 solumderol 125 mg IV x1 She is vitally stable,her dyspnea has improved and was able to ambulated on the hallway without any difficulty. Last Recorded V/S: Last Vital Signs Temp 36.5 C 03/15/19 20:50 Pulse 120 H 03/15/19 20:50 Resp 25 H 03/15/19 20:50 BP 124/85 03/15/19 20:50 Pulse Ox 89 L 03/15/19 20:50 - Orders/Labs/Meds Orders: Active Orders 24 hr Category Date Time Status EKG Documentation Completion [RC] ASDIRECTED Care 03/15/19 21:13 Active RT Aerosol Therapy [RC] ASDIRECTED Care 03/15/19 21:05 Active Chest 1V Frontal [CR] Stat Exams 03/15/19 21:05 Taken EKG 12 Lead [EK] Routine Ther 03/15/19 21:12 Ordered Labs: Laboratory Tests 03/15/19 03/15/19 03/15/19 Range/Units 21:28 21:28 21:28 WBC 11.6 (4.5-12.0) X10-3/uL RBC 3.94 (3.23-5.20) x10(6)uL Hgb 11.6 (11.5-15.5) g/dL Hct 35.3 (30.0-51.3) % MCV 89.6 (80-96) fL MCH 29.3 (27.7-33.6) pg MCHC 32.7 (32.2-35.4) g/dL RDW 14.2 (11.5-15.5) % Plt Count 351 (125-369) X10(3)uL MPV 8.1 (7.4-10.4) fL Neut % (Auto) 75.7 (46-82) % Lymph % (Auto) 14.9 (13-37) % [place] % (Auto) 6.9 (4-12) % Eos % (Auto) 2 (1.0-5.0) % Baso % (Auto) 0 (0-2) % Neut # (Auto) 8.9 H (1.6-8.3) # Lymph # (Auto) 1.7 (0.6-5.0) # [place] # (Auto) 0.8 (0.0-1.3) # Eos # (Auto) 0.2 (0.0-0.8) # Baso # (Auto) 0.0 (0.0-0.2) # PT 22.6 H (8.7-11.1) INR 2.35 H (0.89-1.13) Sodium 138 (135-145) mmol/L Potassium 4.4 D (3.5-5.3) mmol/L Chloride 105 (100-110) mmol/L Carbon Dioxide 24 (21-32) mmol/L BUN 19 H D (7-18) mg/dL Creatinine 0.9 (0.55-1.02) mg/dL Est Cr Clr Drug Dosing 45.20 mL/min Estimated GFR (MDRD) > 60 (>60) BUN/Creatinine Ratio 21.1 H (9-20) Glucose 113 (80-116) mg/dL Calcium 8.7 (8.6-10.2) mg/dL Total Bilirubin 0.6 (0.1-1.3) mg/dL AST 16 (5-25) IU/L ALT 34 (12-36) U/L Alkaline Phosphatase 106 (56-112) IU/L Troponin I (<0.017-0.056) ng/mL NT-Pro-B Natriuret Pep (<=450) pg/mL Total Protein 7.4 (6.0-8.0) g/dL Albumin 2.6 L (3.2-4.6) g/dL Globulin 4.8 g/dL Albumin/Globulin Ratio 0.5 03/15/19 Range/Units 21:28 WBC (4.5-12.0) X10-3/uL RBC (3.23-5.20) x10(6)uL Hgb (11.5-15.5) g/dL Hct (30.0-51.3) % MCV (80-96) fL MCH (27.7-33.6) pg MCHC (32.2-35.4) g/dL RDW (11.5-15.5) % Plt Count (125-369) X10(3)uL MPV (7.4-10.4) fL Neut % (Auto) (46-82) % Lymph % (Auto) (13-37) % [place] % (Auto) (4-12) % Eos % (Auto) (1.0-5.0) % Baso % (Auto) (0-2) % Neut # (Auto) (1.6-8.3) # Lymph # (Auto) (0.6-5.0) # [place] # (Auto) (0.0-1.3) # Eos # (Auto) (0.0-0.8) # Baso # (Auto) (0.0-0.2) # PT (8.7-11.1) INR (0.89-1.13) Sodium (135-145) mmol/L Potassium (3.5-5.3) mmol/L Chloride (100-110) mmol/L Carbon Dioxide (21-32) mmol/L BUN (7-18) mg/dL Creatinine (0.55-1.02) mg/dL Est Cr Clr Drug Dosing mL/min Estimated GFR (MDRD) (>60) BUN/Creatinine Ratio (9-20) Glucose (80-116) mg/dL Calcium (8.6-10.2) mg/dL Total Bilirubin (0.1-1.3) mg/dL AST (5-25) IU/L ALT (12-36) U/L Alkaline Phosphatase (56-112) IU/L Troponin I < 0.017 L (<0.017-0.056) ng/mL NT-Pro-B Natriuret Pep 3882 H* (<=450) pg/mL Total Protein (6.0-8.0) g/dL Albumin (3.2-4.6) g/dL Globulin g/dL Albumin/Globulin Ratio Meds: Medications Discontinued Medications Generic Name Dose Route Start Last Admin Trade Name Octavio PRN Reason Stop Dose Admin Albuterol/Ipratropium 3 ml 03/15/19 21:04 03/15/19 21:09 Duoneb 3.0-0.5 Mg/3 Ml NEB 03/15/19 21:05 3 ml ONETIME ONE Administration Azithromycin 500 mg 03/15/19 22:48 03/15/19 22:52 Zithromax PO 03/15/19 22:49 500 mg ONETIME ONE Administration Diltiazem HCl 15 mg 03/15/19 22:12 03/15/19 22:16 Diltiazem IVPUSH 03/15/19 22:13 15 mg ONETIME ONE Administration Methylprednisolone Sodium Succinate 125 mg 03/15/19 21:04 03/15/19 21:43 Solu-Medrol IM 03/15/19 21:05 Not Given ONETIME ONE Methylprednisolone Sodium Succinate 125 mg 03/15/19 21:14 03/15/19 21:10 Solu-Medrol IVPUSH 03/15/19 21:15 125 mg ONETIME ONE Administration Departure - Departure Time of Disposition: 04:00 Disposition: Home, Self-Care 01 Condition: Good Clinical Impression: COPD (chronic obstructive pulmonary disease) - Discharge Information *PRESCRIPTION DRUG MONITORING PROGRAM REVIEWED*: No *COPY OF PRESCRIPTION DRUG MONITORING REPORT IN PATIENT ISHAAN: No Prescriptions: Azithromycin 250 mg PO DAILY #6 tablet predniSONE [Prednisone] 40 mg PO DAILY #10 tablet Instructions: Chronic Obstructive Pulmonary Disease Exacerbation Referrals: PCP,None [Primary Care Provider] - Forms: ED Department Discharge Additional Instructions: use your inhalers as directed prednisone 40 mg once daily for 5 days Z-lisa as directed Follow up as needed - My Orders Last 24 Hours: My Active Orders 03/15/19 21:05 RT Aerosol Therapy [RC] ASDIRECTED Chest 1V Frontal [CR] Stat 03/15/19 21:12 EKG 12 Lead [EK] Routine 03/15/19 21:13 EKG Documentation Completion [RC] ASDIRECTED - Assessment/Plan Last 24 Hours: My Active Orders 03/15/19 21:05 RT Aerosol Therapy [RC] ASDIRECTED Chest 1V Frontal [CR] Stat 03/15/19 21:12 EKG 12 Lead [EK] Routine 03/15/19 21:13 EKG Documentation Completion [RC] ASDIRECTED
--- NOTE | 2019-03-16 09:34 | CR ---
INDICATION: Dyspnea. CHEST: An AP upright view of the chest was obtained, 03/15/19, and compared with 09/04/18 and 03/26/17. The heart appears prominent but is not well seen, due to bilateral basilar infiltrates and effusions, which may be on the basis of pneumonia and pleuritis but should be correlated clinically, as the pulmonary vasculature is prominent and indistinctly marginated, compatible with CHF. Interstitial markings suggest interstitial lung edema additionally. Median sternotomy is again noted. Calcifications in the arch of the aorta are again noted. Overlying EKG leads are noted. IMPRESSION: 1. ASHD, cardiomegaly, post median sternotomy change with CHF and interstitial lung edema. 2. Bibasilar pleural parenchymal changes may be on the basis of pneumonia and pleuritis. They are definitely increased, compared with the previous examination. MTDD
== END 2019-03-15 23:02 | disposition home or self-care (01) ==
LOC: FB.ED 20:50
DX: J44.9 Chronic obstructive pulmonary disease, unspecified (principal); I25.10 Atherosclerotic heart disease of native coronary artery without angina pectoris; I10 Essential (primary) hypertension; F41.9 Anxiety disorder, unspecified; I82.409 Acute embolism and thrombosis of unspecified deep veins of unspecified lower extremity; Z88.5 Allergy status to narcotic agent; Z88.2 Allergy status to sulfonamides; Z88.8 Allergy status to other drugs, medicaments and biological substances; Z79.51 Long term (current) use of inhaled steroids; Z79.52 Long term (current) use of systemic steroids; Z79.899 Other long term (current) drug therapy; Z79.82 Long term (current) use of aspirin; Z79.01 Long term (current) use of anticoagulants
CPT/HCPCS: 36415; 71045; 80053; 83880; 84484; 85025; 85610; 93005; 94640; 96374; 96375; 99285; A9270; J2930; J3490; J7620-GY

== ENCOUNTER 2019-05-04 12:33 | Observation (INO) | payer MEDICARE ==
[2019-05-04] MEDS ORDERED: Sodium Chloride 0.9% 10 ML Syringe FLUSH PRN (13:55)
--- NOTE | 2019-05-04 14:22 | EDM.PDOC ---
ED HPI GENERAL MEDICAL PROBLEM - General Chief Complaint: Cardiovascular Problem Stated Complaint: SOB, LOW BP Time Seen by Provider: 05/04/19 13:40 Source of Information: Reports: Patient, Family, Old Records History Limitations: Reports: No Limitations - History of Present Illness INITIAL COMMENTS - FREE TEXT/NARRATIVE: Kati comes into [facility] ED from the Clinic for IV fluids as request of PCP. She has been having issues with low BP, weakness, and SOB. She has been sitting since this Fall and swelling in both legs has appeared over time. She has a known hx of CAD, SP CABG, and mitral valve stenosis. A chest x ray from 03/15/19 noted aspiration pneumonia with some CHF. A recent chest x ray from the Clinic notes CHF has largely resolved, although chronic bilateral infiltrates persist, worse on the L side. Her 02 sats 95% on RA upon arrival, and dropped to 91-93%. - Related Data Allergies Allergy/AdvReac Type Severity Reaction Status Date / Time meperidine HCl [From Demerol] Allergy Tachycardia Verified 08/11/18 08:49 nystatin Allergy Rash Verified 08/11/18 08:49 propranolol HCl Allergy Tachycardia Verified 08/11/18 08:49 [From Inderal LA] Sulfa (Sulfonamide Allergy flu like Verified 08/11/18 08:49 Antibiotics) symptoms Home Meds: Home Meds Simvastatin 5 mg PO BEDTIME 10/13/13 [History] Albuterol Sulfate [Proair Hfa] 2 puff IH Q4H PRN 03/23/17 [History] Aspirin 81 mg PO DAILY 03/23/17 [History] Warfarin [Coumadin] 2.5 - 5 mg PO DAILY 03/23/17 [History] ALPRAZolam [Xanax] 0.5 mg PO TID PRN 03/27/17 [History] Budesonide/Formoterol Fumarate [Symbicort 80-4.5 MCG] 2 puff INH BID 08/10/18 [ History] Diltiazem HCl [Cartia Xt] 120 mg PO DAILY 08/10/18 [History] Escitalopram [Lexapro] 10 mg PO DAILY 08/10/18 [History] Oxybutynin 5 mg PO BID #60 tablet 09/11/18 [Rx] Potassium Chloride 20 meq PO DAILY #30 tablet.er 09/11/18 [Rx] Albuterol/Ipratropium [DuoNeb 3.0-0.5 MG/3 ML] 3 ml IH Q4H PRN 05/04/19 [History ] Metoprolol Tartrate [Lopressor] 150 mg PO BID 05/04/19 [History] Warfarin [Coumadin] 5 mg PO SUTUWETHSA 05/04/19 [History] Past Medical History HEENT History: Reports: Cataract, Other (See Below) Other HEENT History: DYSPHAGIA Cardiovascular History: Reports: Afib, Arrhythmia, Blood Clots/VTE/DVT, CAD, High Cholesterol, Hypertension, Other (See Below) Other Cardiovascular History: MITRAL STENOSIS Respiratory History: Reports: Asthma, COPD Gastrointestinal History: Reports: None 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: Reports: 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 Neurological History: Reports: Other (See Below) Other Neuro History: tremors; TORTICOLLIS Psychiatric History: Reports: Anxiety Endocrine/Metabolic History: Reports: None Hematologic History: Reports: Other (See Below) Other Hematologic History: HX OF DVT OF LOWER EXTREMITY; FPC USE OF ANTICOAGULANTS Immunologic History: Reports: None Oncologic (Cancer) History: Reports: None Dermatologic History: Reports: Other (See Below) Other Dermatologic History: HX OF BASAL CELL CARCINOMA EXCISION - Past Surgical History HEENT Surgical History: Reports: Cataract Surgery, Other (See Below) Other HEENT Surgeries/Procedures: surgery right ear Cardiovascular Surgical History: Reports: Coronary Artery Bypass, Valve Replacement GI Surgical History: Reports: Appendectomy, Cholecystectomy, Other (See Below) Other GI Surgeries/Procedures: Had feeding tube for 1 1/2 years after bypass surgery in 2012 due to inability to swallow Female Surgical History: Reports: Hysterectomy Musculoskeletal Surgical History: Reports: ORIF Social & Family History - Family History Family Medical History: Noncontributory - Tobacco Use Smoking Status *Q: Never Smoker - Caffeine Use Caffeine Use: Reports: None ED ROS GENERAL - Review of Systems Review Of Systems: See Below Constitutional: Reports: Malaise, Fatigue HEENT: Reports: No Symptoms Respiratory: Reports: Shortness of Breath Cardiovascular: Reports: Blood Pressure Problem, Dyspnea on Exertion, Edema, Lightheadedness Endocrine: Reports: No Symptoms GI/Abdominal: Reports: No Symptoms : Reports: No Symptoms Musculoskeletal: Reports: No Symptoms Skin: Reports: Other (dependent edema) Neurological: Reports: Difficulty Walking, Weakness Psychiatric: Reports: Anxiety Hematologic/Lymphatic: Reports: No Symptoms Immunologic: Reports: No Symptoms ED EXAM, GENERAL - Physical Exam Exam: See Below Exam Limited By: No Limitations General Appearance: Alert, WD/WN, No Apparent Distress Eye Exam: Bilateral Eye: EOMI, Normal Inspection, PERRL Ears: Other (defect L ear from prior surgery) Nose: Normal Inspection Throat/Mouth: Normal Inspection, Normal Oropharynx Head: Normocephalic Neck: Normal Inspection, Supple Respiratory/Chest: No Respiratory Distress, No Accessory Muscle Use, Decreased Breath Sounds (L base), Crackles (occ insp crackle), Accessory Muscle Use, Prolonged Expiration Cardiovascular: Regular Rate, Rhythm, Systolic Murmur GI/Abdominal: Normal Bowel Sounds, Soft, Non-Tender, No Organomegaly, No Distention, No Mass (Female) Exam: Deferred Rectal (Female) Exam: Deferred Back Exam: Normal Inspection Extremities: Pedal Edema Neurological: Alert, CN II-XII Intact, No Motor/Sensory Deficits Psychiatric: Normal Mood, Flat Affect Skin Exam: Warm, Dry Lymphatic: No Adenopathy Course - Vital Signs Text/Narrative:: I reviewed the chest x ray and prior x rays with radiology, noting chronic infiltrates L>>R, and some improvement in perihilar congestion. The BNP has increased to 7814 from last month. Inflammatory markers are baseline. Attempts to ambulate patient after 0.5L of D5LR noted she remained normotensive, but deoxygenated to 81% on RA after walking 30'. 02 at 1.5L improved to 94%. I discussed case with daughter in law and patient, and Mrs. Sharpe will need home 02 therapy, and assessment for [facility] services vs long term care pharmacist care, in addition to a follow up visit with Cardiology in [place], [place]. Family is in agreement with this COA. Last Recorded V/S: Last Vital Signs Temp 36.6 C 05/04/19 12:33 Pulse 96 05/04/19 15:30 Resp 20 05/04/19 15:30 BP 105/54 L 05/04/19 15:30 Pulse Ox 91 L 05/04/19 15:30 Orthostatic Blood Pressure [ 105/54 Standing] Orthostatic Blood Pressure [ 120/67 Sitting] Orthostatic Blood Pressure [ 126/70 Supine] - Orders/Labs/Meds Orders: Active Orders 24 hr Category Date Time Status Dextrose 5%-Lactated Ringers 1,000 ml Med 05/04/19 14:30 Active IV ASDIRECTED Sodium Chloride 0.9% [Saline Flush] Med 05/04/19 13:55 Active 10 ml FLUSH ASDIRECTED PRN YONG Bandage [Elastic Wrap] [OM.PC] Routine Oth 05/04/19 14:23 Ordered Peripheral IV Insertion Adult [OM.PC] Routine Oth 05/04/19 13:55 Ordered Medication Orders Dextrose/Lactated Ringer's (Dextrose 5%-Lactated Ringers) 1,000 mls @ 500 mls/ hr IV ASDIRECTED LELAND Last Infusion: 05/04/19 15:39 Dose: 20 mls/hr Admin: 05/04/19 14:36 Dose: 500 mls/hr Sodium Chloride (Saline Flush) 10 ml FLUSH ASDIRECTED PRN PRN Reason: Keep Vein Open Last Admin: 05/04/19 14:36 Dose: 10 ml Labs: Laboratory Tests 05/04/19 05/04/19 05/04/19 Range/Units 14:05 14:05 14:05 ESR 43 H (0-20) mm/hr Lactic Acid 1.7 (0.4-2.2) mmol/L NT-Pro-B Natriuret Pep 7184 H* (<=450) pg/mL Meds: Medications Generic Name Dose Route Start Last Admin Trade Name Freq PRN Reason Stop Dose Admin Dextrose/Lactated Ringer's 1,000 mls @ 500 mls/hr 05/04/19 14:30 05/04/19 15: 39 Dextrose 5%-Lactated Ringers IV 20 mls/hr ASDIRECTED LELAND Infusion Sodium Chloride 10 ml 05/04/19 13:55 05/04/19 14:36 Saline Flush FLUSH 10 ml ASDIRECTED PRN Administration Keep Vein Open Departure - Departure Time of Disposition: 16:40 Disposition: Refer to Observation Condition: Poor Clinical Impression: COPD (chronic obstructive pulmonary disease) Qualifiers: COPD type: unspecified COPD Qualified Code(s): J44.9 - Chronic obstructive pulmonary disease, unspecified Congestive heart failure (CHF) Qualifiers: Heart failure type: unspecified Heart failure chronicity: acute on chronic Qualified Code(s): I50.9 - Heart failure, unspecified - Discharge Information *PRESCRIPTION DRUG MONITORING PROGRAM REVIEWED*: Not Applicable *COPY OF PRESCRIPTION DRUG MONITORING REPORT IN PATIENT ISHAAN: Not Applicable Referrals: Ann Joseph NP [Primary Care Provider] - Forms: ED Department Discharge - Problem List & Annotations (1) COPD (chronic obstructive pulmonary disease) SNOMED Code(s): 45810562 Code(s): J44.9 - CHRONIC OBSTRUCTIVE PULMONARY DISEASE, UNSPECIFIED Status : Acute Current Visit: Yes Annotation/Comment:: see above. Nebs. Qualifiers: COPD type: unspecified COPD Qualified Code(s): J44.9 - Chronic obstructive pulmonary disease, unspecified (2) Congestive heart failure (CHF) SNOMED Code(s): 47358275 Code(s): I50.9 - HEART FAILURE, UNSPECIFIED Status: Acute Current Visit: Yes Qualifiers: Heart failure type: unspecified Heart failure chronicity: acute on chronic Qualified Code(s): I50.9 - Heart failure, unspecified - Problem List Review Problem List Initiated/Reviewed/Updated: Yes - My Orders Last 24 Hours: My Active Orders 05/04/19 13:55 Sodium Chloride 0.9% [Saline Flush] 10 ml FLUSH ASDIRECTED PRN Peripheral IV Insertion Adult [OM.PC] Routine 05/04/19 14:23 YONG Bandage [Elastic Wrap] [OM.PC] Routine 05/04/19 14:30 Dextrose 5%-Lactated Ringers 1,000 ml IV ASDIRECTED - Assessment/Plan Last 24 Hours: My Active Orders 05/04/19 13:55 Sodium Chloride 0.9% [Saline Flush] 10 ml FLUSH ASDIRECTED PRN Peripheral IV Insertion Adult [OM.PC] Routine 05/04/19 14:23 YONG Bandage [Elastic Wrap] [OM.PC] Routine 05/04/19 14:30 Dextrose 5%-Lactated Ringers 1,000 ml IV ASDIRECTED Plan: Kati will need home 02 and assessment for HHC and skilled nursing care. Hospitalist will see in the am.
[2019-05-04] MEDS: Dextrose 5%-Lactated Ringers 1,000 ML IV SCH (14:36)
[2019-05-04] MEDS ORDERED: Albuterol 8 GM Inhaler INH PRN (20:21)
[2019-05-04] MEDS ORDERED: Formoterol/Mometasone 100-5 MCG 8.8 GM Inhaler IH SCH (21:00)
[2019-05-04] MEDS ORDERED: Oxybutynin 5 MG Tab PO SCH (21:00)
[2019-05-04] MEDS ORDERED: Simvastatin 10 MG Tab PO SCH (21:00)
[2019-05-04] MEDS ORDERED: Warfarin Sliding Scale PO SCH (21:15)
[2019-05-04] MEDS ORDERED: Metoprolol Tartrate 50 MG Tab PO SCH (21:15)
[2019-05-04] MEDS ORDERED: WARFARIN 2.5 MG PO ONE (21:30)
[2019-05-04] MEDS: ALPRAZolam 0.5 MG Tab PO SCH (21:57)
[2019-05-04] MEDS ORDERED: SIMVASTATIN 10 MG PO ONE (22:00)
[2019-05-04] MEDS ORDERED: OXYBUTYNIN 5 MG PO ONE (22:00)
[2019-05-04] MEDS ORDERED: METOPROLOL TARTRATE 100 MG PO ONE (22:00)
[2019-05-05] MEDS ORDERED: Albuterol 8 GM Inhaler INH PRN ×2 (07:51→09:59)
[2019-05-05] MEDS ORDERED: Formoterol/Mometasone 100-5 MCG 8.8 GM Inhaler IH SCH (08:02)
[2019-05-05] MEDS ORDERED: Furosemide 20 MG/2 ML VIAL IVPUSH ONE (09:15)
--- NOTE | 2019-05-05 09:21 | PCM.HP.2 ---
H&P History of Present Illness - General Date of Service: 05/05/19 Admit Problem/Dx: Admission Diagnosis/Problem Admission Diagnosis/Problem COPD, Moderate chronic obstructive pulmonary disease Source of Information: Family History Limitations: Reports: No Limitations - History of Present Illness Initial Comments - Free Text/Narative: Kati is a 79-year-old female brought in from the clinic yesterday for generalis weakness shortness of breath and hypotension. She has a history of COPD, pneumonia, atrial fibrillation, mitral valve replacement, CABG, and possibly CHF. She also has essential tremor,and anxiety. She's lost a lot of weight in the last few weeks has been generally weak and progressively having problems with ambulation. At the clinic she was found to have a low blood pressure and then she had hypoxia upon presentation to the ER. Overnight she got some fluids as well as supplemental oxygenation. She denies any chest pain, fever,chills but she does have dysphagia and choking,with chronic infiltrates in the lungs likely to be due to aspiration.However,she denies any fever or chills and she does not endorse any urinary or respiratory symptoms. - Related Data Allergies/Adverse Reactions: Allergies Allergy/AdvReac Type Severity Reaction Status Date / Time meperidine HCl [From Demerol] Allergy Severe Tachycardia Verified 05/04/19 17:44 nystatin Allergy Severe Rash Verified 05/04/19 17:44 propranolol HCl Allergy Tachycardia Verified 05/04/19 17:44 [From Inderal LA] Sulfa (Sulfonamide Allergy flu like Verified 05/04/19 17:44 Antibiotics) symptoms Home Medications: Home Meds Simvastatin 5 mg PO BEDTIME 10/13/13 [History] Albuterol Sulfate [Proair Hfa] 2 puff IH Q4H PRN 03/23/17 [History] Aspirin 81 mg PO DAILY 03/23/17 [History] Warfarin [Coumadin] 2.5 mg PO MOFR 03/23/17 [History] ALPRAZolam [Xanax] 0.5 mg PO TID 03/27/17 [History] Budesonide/Formoterol Fumarate [Symbicort 80-4.5 MCG] 2 puff INH BID 08/10/18 [ History] Diltiazem HCl [Cartia Xt] 120 mg PO DAILY 08/10/18 [History] Escitalopram [Lexapro] 10 mg PO DAILY 08/10/18 [History] Oxybutynin 5 mg PO BID #60 tablet 09/11/18 [Rx] Potassium Chloride 20 meq PO DAILY #30 tablet.er 09/11/18 [Rx] Albuterol/Ipratropium [DuoNeb 3.0-0.5 MG/3 ML] 3 ml IH Q4H PRN 05/04/19 [History ] Magnesium 200 mg PO DAILY@1200 05/04/19 [History] Metoprolol Tartrate [Lopressor] 150 mg PO BID 05/04/19 [History] Warfarin [Coumadin] 5 mg PO SUTUWETHSA 05/04/19 [History] Past Medical History HEENT History: Reports: Cataract, Other (See Below) Other HEENT History: DYSPHAGIA Cardiovascular History: Reports: Afib, Arrhythmia, Blood Clots/VTE/DVT, CAD, High Cholesterol, Hypertension, Other (See Below) Other Cardiovascular History: MITRAL STENOSIS Respiratory History: Reports: Asthma, COPD Gastrointestinal History: Reports: None Genitourinary History: Reports: None MAINTENANCE AIDE History: Reports: Musculoskeletal History: Reports: Fracture Neurological History: Reports: Other (See Below) Other Neuro History: tremors; TORTICOLLIS Psychiatric History: Reports: Anxiety Endocrine/Metabolic History: Reports: None Hematologic History: Reports: Other (See Below) Other Hematologic History: HX OF DVT OF LOWER EXTREMITY; [employer] USE OF ANTICOAGULANTS Immunologic History: Reports: None Oncologic (Cancer) History: Reports: None Dermatologic History: Reports: Other (See Below) Other Dermatologic History: HX OF BASAL CELL CARCINOMA EXCISION - Infectious Disease History Other Infectious Disease History: pt doesn't remember - Past Surgical History HEENT Surgical History: Reports: Cataract Surgery, Other (See Below) Other HEENT Surgeries/Procedures: surgery right ear Cardiovascular Surgical History: Reports: Coronary Artery Bypass, Valve Replacement GI Surgical History: Reports: Appendectomy, Cholecystectomy, Other (See Below) Other GI Surgeries/Procedures: Had feeding tube for 1 1/2 years after bypass surgery in 2012 due to inability to swallow Female Surgical History: Reports: Hysterectomy Musculoskeletal Surgical History: Reports: ORIF Social & Family History - Family History Family Medical History: Noncontributory - Tobacco Use Smoking Status *Q: Never Smoker Second Hand Smoke Exposure: Yes - Caffeine Use Caffeine Use: Reports: None - Recreational Drug Use Recreational Drug Use: No H&P Review of Systems - Review of Systems: Review Of Systems: Comprehensive ROS is negative, except as noted in HPI. Exam - Exam Exam: See Below - Vital Signs Vital Signs: Last Vital Signs Temp 97.6 F 05/05/19 03:38 Pulse 102 H 05/05/19 03:38 Resp 16 05/05/19 03:38 BP 114/58 L 05/05/19 03:38 Pulse Ox 93 L 05/05/19 03:38 Orthostatic Blood Pressure [ 105/54 Standing] Orthostatic Blood Pressure [ 120/67 Sitting] Orthostatic Blood Pressure [ 126/70 Supine] Weight: 66.542 kg - Exam Quality Assessment: Supplemental Oxygen General: Alert, Oriented HEENT: PERRLA Neck: Supple, Trachea Midline Lungs: Crackles, Rales Cardiovascular: Irregular Rhythm GI/Abdominal Exam: Soft (Female) Exam: Deferred Rectal (Female) Exam: Deferred Back Exam: Normal Inspection, Full Range of Motion Skin: Warm, Dry Neurological: Cranial Nerves Intact Neuro Extensive - Mental Status: Oriented x3 Neuro Extensive - Motor, Sensory, Reflexes: CN II-XII Intact Psychiatric: Alert - Patient Data Lab Results Last 24 hrs: Laboratory Results - last 24 hr 05/04/19 05/04/19 05/04/19 Range/Units 14:05 14:05 14:05 ESR 43 H (0-20) mm/hr PT (8.7-11.1) INR (0.89-1.13) Lactic Acid 1.7 (0.4-2.2) mmol/L NT-Pro-B Natriuret Pep 7184 H* (<=450) pg/mL Urine Color (YELLOW) Urine Appearance (CLEAR) Urine pH (5.0-6.5) Ur Specific Western (1.010-1.025) Urine Protein (NEGATIVE) mg/dL Urine Glucose (UA) (NORMAL) mg/dL Urine Ketones (NEGATIVE) mg/dL Urine Occult Blood (NEGATIVE) Urine Nitrite (NEGATIVE) Urine Bilirubin (NEGATIVE) Urine Urobilinogen (NEGATIVE) mg/dL Ur Leukocyte Esterase (NEGATIVE) Urine RBC (0-5) Urine WBC (0-5) Ur Squamous Epith Cells (NS,R,O) Urine Bacteria (NS) 05/04/19 05/05/19 05/05/19 Range/Units 14:05 03:00 06:45 ESR (0-20) mm/hr PT 25.0 H 32.8 H (8.7-11.1) INR 2.60 H 3.42 H (0.89-1.13) Lactic Acid (0.4-2.2) mmol/L NT-Pro-B Natriuret Pep (<=450) pg/mL Urine Color Yellow (YELLOW) Urine Appearance Slightly cloudy (CLEAR) Urine pH 5.0 (5.0-6.5) Ur Specific Western 1.030 H (1.010-1.025) Urine Protein Negative (NEGATIVE) mg/dL Urine Glucose (UA) Normal (NORMAL) mg/dL Urine Ketones 15 H (NEGATIVE) mg/dL Urine Occult Blood Negative (NEGATIVE) Urine Nitrite Positive H (NEGATIVE) Urine Bilirubin Negative (NEGATIVE) Urine Urobilinogen Normal (NEGATIVE) mg/dL Ur Leukocyte Esterase Large H (NEGATIVE) Urine RBC 0-5 (0-5) Urine WBC 10-20 H (0-5) Ur Squamous Epith Cells Few H (NS,R,O) Urine Bacteria Moderate H (NS) EKG INTERPRETATION Rhythm: A-Fib - Problem List (1) Congestive heart failure (CHF) SNOMED Code(s): 27129755 ICD Code: I50.9 - HEART FAILURE, UNSPECIFIED Status: Acute Current Visit : Yes Qualifiers: Heart failure type: unspecified Heart failure chronicity: acute on chronic Qualified Code(s): I50.9 - Heart failure, unspecified (2) Ambulatory dysfunction SNOMED Code(s): 912243813 ICD Code: R26.2 - DIFFICULTY IN WALKING, NOT ELSEWHERE CLASSIFIED Status: Acute Current Visit: Yes (3) ABHISHEK (generalized anxiety disorder) SNOMED Code(s): 95650905 ICD Code: F41.1 - GENERALIZED ANXIETY DISORDER Status: Acute Current Visit: Yes (4) Essential tremor SNOMED Code(s): 197974876 ICD Code: G25.0 - ESSENTIAL TREMOR Status: Acute Current Visit: Yes (5) COPD (chronic obstructive pulmonary disease) SNOMED Code(s): 15628826 ICD Code: J44.9 - CHRONIC OBSTRUCTIVE PULMONARY DISEASE, UNSPECIFIED Status : Acute Current Visit: Yes Problem Details: see above. Nebs. Qualifiers: COPD type: unspecified COPD Qualified Code(s): J44.9 - Chronic obstructive pulmonary disease, unspecified (6) Chronic anticoagulation SNOMED Code(s): 429674618 ICD Code: Z79.01 - SHELTER (CURRENT) USE OF ANTICOAGULANTS Status: Acute Current Visit: No Problem Details: 2-3. Pharmacy to follow. Supratherapeutic today. (7) History of DVT (deep vein thrombosis) SNOMED Code(s): 930471838 ICD Code: Z86.718 - PERSONAL HISTORY OF OTHER VENOUS THROMBOSIS AND EMBOLISM Status: Acute Current Visit: No (8) Mitral stenosis SNOMED Code(s): 81828371 ICD Code: I05.0 - RHEUMATIC MITRAL STENOSIS Status: Acute Current Visit: No (9) Palliative care patient SNOMED Code(s): 107440832 ICD Code: Z51.5 - ENCOUNTER FOR PALLIATIVE CARE Status: Acute Current Visit: No (10) CAD (coronary artery disease) SNOMED Code(s): 94999692 ICD Code: I25.10 - ATHSCL HEART DISEASE OF [place] CORONARY ARTERY W/O ANG PCTRS Status: Chronic Current Visit: No Qualifiers: Associated angina: without angina (11) Chronic atrial fibrillation SNOMED Code(s): 626157748 ICD Code: I48.2 - CHRONIC ATRIAL FIBRILLATION * DO NOT USE * Status: Chronic Current Visit: No (12) Hypertension SNOMED Code(s): 78450898 ICD Code: I10 - ESSENTIAL (PRIMARY) HYPERTENSION Status: Chronic Current Visit: No Problem Details: See above. Qualifiers: Hypertension type: essential hypertension (13) Asymptomatic bacteriuria SNOMED Code(s): 401077047 ICD Code: R82.71 - BACTERIURIA Status: Acute Current Visit: Yes Problem List Initiated/Reviewed/Updated: Yes Orders Last 24hrs: Active Orders 24 hr Category Date Time Status Patient Status [ADT] Routine ADT 05/04/19 17:24 Active Bedrest Bedside Commode [RC] ASDIRECTED Care 05/04/19 17:24 Active Bladder Scan [RC] ASDIRECTED Care 05/05/19 03:28 Active Dietary Supplements [RC] TIDAC Care 05/05/19 09:17 Ordered Height and Weight [RC] DAILY Care 05/04/19 17:24 Active Oxygen Therapy [RC] PRN Care 05/04/19 17:24 Active Pulse Oximetry [RC] PRN Care 05/04/19 17:24 Active Up With Assistance [RC] ASDIRECTED Care 05/04/19 17:24 Active Up to Chair [RC] ASDIRECTED Care 05/04/19 17:24 Active VTE/DVT Education [RC] Per Unit Routine Care 05/04/19 17:24 Active Vital Signs [RC] 08,12,16,20,00,04 Care 05/04/19 17:24 Active OT Evaluation and Treatment [CONS] Routine Cons 05/05/19 09:17 Ordered PT Evaluation and Treatment [CONS] Routine Cons 05/05/19 09:17 Ordered 2 Gram Sodium Diet [DIET] Diet 05/04/19 Dinner Active Mechanical Soft Diet [DIET] Diet 05/05/19 Lunch Ordered BASIC METABOLIC PANEL,BMP [CHEM] AM Lab 05/06/19 05:11 Ordered CBC WITH AUTO DIFF [HEME] AM Lab 05/06/19 05:11 Ordered ALPRAZolam [Xanax] Med 05/04/19 21:00 Active 0.5 mg PO TID Albuterol [Ventolin HFA] Med 05/05/19 07:51 Active 0 gm INH Q4H PRN Aspirin [Halfprin] Med 05/05/19 09:00 Active 81 mg PO DAILY Escitalopram [Lexapro] Med 05/05/19 09:00 Active 10 mg PO DAILY Furosemide [Lasix] Med 05/05/19 09:15 Once 20 mg IVPUSH ONETIME ONE Metoprolol Tartrate [Lopressor] Med 05/05/19 09:00 Active 50 mg PO BID Mometasone/Formoterol [Dulera 100-5 MCG] Med 05/05/19 08:02 Active 0 puff IH BID Non-Formulary Medication [NF Drug] Med 05/05/19 12:00 Active 0 each PO DAILY@1200 Oxybutynin Med 05/05/19 09:00 Active 5 mg PO BID Potassium Chloride [Klor-Con M20] Med 05/05/19 09:00 Active 20 meq PO DAILY Simvastatin [Zocor] Med 05/05/19 21:00 Active 5 mg PO BEDTIME Sodium Chloride 0.9% [Saline Flush] Med 05/04/19 13:55 Active 10 ml FLUSH ASDIRECTED PRN Warfarin Sliding Scale [Coumadin Sliding Scale] Med 05/04/19 21:15 Pending 1 each PO DAILY YONG Bandage [Elastic Wrap] [OM.PC] Routine Oth 05/04/19 14:23 Ordered Peripheral IV Insertion Adult [OM.PC] Routine Oth 05/04/19 13:55 Ordered Resuscitation Status Routine Resus Stat 05/04/19 16:45 Ordered Medication Orders Albuterol (Ventolin Hfa) 0 gm INH Q4H PRN PRN Reason: WHEEZING Alprazolam (Xanax) 0.5 mg PO TID LELAND Last Admin: 05/04/19 21:57 Dose: 0.5 mg Aspirin (Halfprin) 81 mg PO DAILY LELAND Escitalopram Oxalate (Lexapro) 10 mg PO DAILY LELAND Furosemide (Lasix) 20 mg IVPUSH ONETIME ONE Stop: 05/05/19 09:16 Metoprolol Tartrate (Lopressor) 50 mg PO BID LELAND Mometasone Furoate/Formoterol Fumar (Dulera 100-5 Mcg) 0 puff IH BID LELAND Magnesium 200mg * (Ptom) 0 each PO DAILY@1200 LELAND Oxybutynin Chloride (Oxybutynin) 5 mg PO BID LELAND Potassium Chloride (Klor-Con M20) 20 meq PO DAILY LELAND Simvastatin (Zocor) 5 mg PO BEDTIME LELAND Sodium Chloride (Saline Flush) 10 ml FLUSH ASDIRECTED PRN PRN Reason: Keep Vein Open Last Admin: 05/04/19 14:36 Dose: 10 ml Warfarin Sodium (Coumadin Sliding Scale) 1 each PO DAILY LELAND Assessment/Plan Comment:: I will hold off on IV fluid supplementation. And give her 20 mg of Lasix one- time. I've resumed all medications except Cardizem, and the dose of metoprolol has been reduced to 50 mg bid.Consult PT/PT and medical education specialist. I will also give her diet supplement,mechanical soft/pureed diet and consult dietary as well. I'll keep observation care this time, unless acuity changes. I have elected not to treat her bacteriuria since she does not have any symptoms. I anticipate improvement possibly swing bed admission for strengthening. - Mortality Measure Prognosis:: Good
[2019-05-05] MEDS: Metoprolol Tartrate 100 MG Tab *PTOM PO SCH ×4 (11:10→23:59)
[2019-05-05] MEDS: Escitalopram 10 MG Tab *PTOM PO SCH (11:11)
[2019-05-05] MEDS: OXYBUTYNIN 5 MG PO SCH ×2 (11:12→20:30)
[2019-05-05] MEDS: MAGNESIUM 200 MG PO SCH (11:13)
[2019-05-05] MEDS: Potassium Chloride 20 MEQ Tab.ER *PTOM PO SCH (11:13)
[2019-05-05] MEDS: Aspirin 81 MG Tab.EC *PTOM PO SCH (11:13)
[2019-05-05] MEDS: SYMBICORT INH SCH ×2 (11:33→20:32)
[2019-05-05] MEDS: ALPRAZolam 0.5 MG Tab PO SCH ×3 (11:44→20:35)
[2019-05-05] MEDS: Dextrose 5%-Lactated Ringers 1,000 ML IV SCH (15:52)
[2019-05-05] MEDS: Simvastatin 10 MG Tab *PTOM PO SCH (20:31)
[2019-05-06] MEDS: Aspirin 81 MG Tab.EC *PTOM PO SCH (09:00)
[2019-05-06] MEDS: Potassium Chloride 20 MEQ Tab.ER *PTOM PO SCH (09:00)
[2019-05-06] MEDS: Escitalopram 10 MG Tab *PTOM PO SCH (09:01)
[2019-05-06] MEDS: Metoprolol Tartrate 100 MG Tab *PTOM PO SCH ×2 (09:01→21:18)
[2019-05-06] MEDS: OXYBUTYNIN 5 MG PO SCH ×2 (09:03→21:19)
[2019-05-06] MEDS: SYMBICORT INH SCH ×2 (09:03→21:18)
[2019-05-06] MEDS: ALPRAZolam 0.5 MG Tab PO SCH ×3 (09:08→21:20)
[2019-05-06] MEDS ORDERED: Furosemide 20 MG/2 ML VIAL IVPUSH ONE (09:55)
--- NOTE | 2019-05-06 09:58 | PCM.PN ---
- General Info Date of Service: 05/06/19 Subjective Update: Looks and feels better. Still needing supplemental oxygenation. Denies chest pain, cough fever or chills. - Review of Systems Gastrointestinal: Reports: No Symptoms Genitourinary: Reports: No Symptoms Musculoskeletal: Reports: No Symptoms - Patient Data Vitals - Most Recent: Last Vital Signs Temp 97.7 F 05/06/19 08:00 Pulse 106 H 05/06/19 09:01 Resp 18 05/06/19 08:00 BP 120/75 05/06/19 09:01 Pulse Ox 97 05/06/19 08:00 Orthostatic Blood Pressure [ 105/54 Standing] Orthostatic Blood Pressure [ 120/67 Sitting] Orthostatic Blood Pressure [ 126/70 Supine] Weight - Most Recent: 65.68 kg Lab Results Last 24 Hours: Laboratory Results - last 24 hr 05/06/19 05/06/19 05/06/19 Range/Units 06:53 06:53 09:15 WBC 5.9 (4.5-12.0) X10-3/uL RBC 3.66 (3.23-5.20) x10(6)uL Hgb 10.3 L (11.5-15.5) g/dL Hct 32.8 (30.0-51.3) % MCV 89.7 (80-96) fL MCH 28.2 (27.7-33.6) pg MCHC 31.4 L (32.2-35.4) g/dL RDW 16.5 H (11.5-15.5) % Plt Count 218 (125-369) X10(3)uL MPV 8.1 (7.4-10.4) fL Neut % (Auto) 69.6 (46-82) % Lymph % (Auto) 15.6 (13-37) % Lea % (Auto) 11.2 (4-12) % Eos % (Auto) 3 (1.0-5.0) % Baso % (Auto) 1 (0-2) % Neut # (Auto) 4.1 (1.6-8.3) # Lymph # (Auto) 0.9 (0.6-5.0) # Lea # (Auto) 0.7 (0.0-1.3) # Eos # (Auto) 0.2 (0.0-0.8) # Baso # (Auto) 0.0 (0.0-0.2) # PT 32.1 H (8.7-11.1) INR 3.35 H (0.89-1.13) Sodium 141 (135-145) mmol/L Potassium 3.7 (3.5-5.3) mmol/L Chloride 106 (100-110) mmol/L Carbon Dioxide 29 (21-32) mmol/L BUN 10 (7-18) mg/dL Creatinine 0.9 (0.55-1.02) mg/dL Est Cr Clr Drug Dosing 45.20 mL/min Estimated GFR (MDRD) > 60 (>60) BUN/Creatinine Ratio 11.1 (9-20) Glucose 96 (80-116) mg/dL Calcium 8.4 L (8.6-10.2) mg/dL Med Orders - Current: Current Medications Albuterol (Ventolin Hfa) 0 gm INH Q4H PRN PRN Reason: WHEEZING Alprazolam (Xanax) 0.5 mg PO TID [facility] Last Admin: 05/06/19 09:08 Dose: 0.5 mg Aspirin (Halfprin) 81 mg PO DAILY [facility] Last Admin: 05/06/19 09:00 Dose: 81 mg Escitalopram Oxalate (Lexapro) 10 mg PO DAILY [facility] Last Admin: 05/06/19 09:01 Dose: 10 mg Furosemide (Lasix) 20 mg IVPUSH ONETIME ONE Stop: 05/06/19 09:56 Metoprolol Tartrate (Lopressor) 50 mg PO BID [facility] Last Admin: 05/06/19 09:01 Dose: 50 mg Magnesium 200mg * (Ptom) 0 each PO DAILY@1200 [facility] Last Admin: 05/05/19 11:13 Dose: 1 each Symbicort 80/4.5 (Inhaler) 0 each INH BID [facility] Last Admin: 05/06/19 09:03 Dose: 2 each Oxybutynin Chloride (Oxybutynin) 5 mg PO BID [facility] Last Admin: 05/06/19 09:03 Dose: 5 mg Potassium Chloride (Klor-Con M20) 20 meq PO DAILY [facility] Last Admin: 05/06/19 09:00 Dose: 20 meq Simvastatin (Zocor) 5 mg PO BEDTIME [facility] Last Admin: 05/05/19 20:31 Dose: 5 mg Sodium Chloride (Saline Flush) 10 ml FLUSH ASDIRECTED PRN PRN Reason: Keep Vein Open Last Admin: 05/04/19 14:36 Dose: 10 ml Warfarin Sodium (Coumadin Sliding Scale) 1 each PO DAILY [facility] Discontinued Medications Albuterol (Ventolin Hfa) 0 gm INH Q4H PRN PRN Reason: WHEEZING Albuterol (Ventolin Hfa) 0 gm INH Q4H PRN PRN Reason: WHEEZING Furosemide (Lasix) 20 mg IVPUSH ONETIME ONE Stop: 05/05/19 09:16 Last Admin: 05/05/19 11:08 Dose: 20 mg Dextrose/Lactated Ringer's (Dextrose 5%-Lactated Ringers) 1,000 mls @ 500 mls/ hr IV ASDIRECTED [facility] Last Infusion: 05/05/19 15:24 Dose: Infused Metoprolol Tartrate (Lopressor) 50 mg PO BID [facility] Last Admin: 05/06/19 04:13 Dose: Not Given Mometasone Furoate/Formoterol Fumar (Dulera 100-5 Mcg) 0 puff IH BID [facility] Last Admin: 05/04/19 21:58 Dose: 2 puff Oxybutynin Chloride (Oxybutynin) 5 mg PO BID [facility] Last Admin: 05/06/19 04:13 Dose: Not Given Metoprolol Tartrate 100 Mg Tab * Pt Own Med* 0 each PO ONETIME ONE Stop: 05/04/19 22:01 Last Admin: 05/04/19 21:50 Dose: 50 each Oxybutynin 5 Mg Tab (*Pt Own Med*) 0 each PO ONETIME ONE Stop: 05/04/19 22:01 Last Admin: 05/04/19 21:48 Dose: 5 each Simvastatin 10 Mg (Tabs *Pt Own Med*) 0 each PO ONETIME ONE Stop: 05/04/19 22:01 Last Admin: 05/04/19 21:51 Dose: 5 each Simvastatin (Zocor) 5 mg PO BEDTIME [facility] Last Admin: 05/06/19 04:13 Dose: Not Given Warfarin Sodium (Coumadin) 5 mg PO ONETIME ONE Stop: 05/04/19 21:31 Last Admin: 05/04/19 21:49 Dose: 5 mg - Exam Quality Assessment: Supplemental Oxygen General: Alert, Oriented HEENT: Pupils Equal Neck: Supple Lungs: Crackles Cardiovascular: Irregular Rhythm GI/Abdominal Exam: Normal Bowel Sounds - Problem List & Annotations (1) Congestive heart failure (CHF) SNOMED Code(s): 69635725 Code(s): I50.9 - HEART FAILURE, UNSPECIFIED Status: Acute Current Visit: Yes Qualifiers: Heart failure type: unspecified Heart failure chronicity: acute on chronic Qualified Code(s): I50.9 - Heart failure, unspecified (2) Ambulatory dysfunction SNOMED Code(s): 817691269 Code(s): R26.2 - DIFFICULTY IN WALKING, NOT ELSEWHERE CLASSIFIED Status: Acute Current Visit: Yes (3) ABHISHEK (generalized anxiety disorder) SNOMED Code(s): 13788039 Code(s): F41.1 - GENERALIZED ANXIETY DISORDER Status: Acute Current Visit : Yes (4) Essential tremor SNOMED Code(s): 273367743 Code(s): G25.0 - ESSENTIAL TREMOR Status: Acute Current Visit: Yes (5) COPD (chronic obstructive pulmonary disease) SNOMED Code(s): 79760181 Code(s): J44.9 - CHRONIC OBSTRUCTIVE PULMONARY DISEASE, UNSPECIFIED Status : Acute Current Visit: Yes Qualifiers: COPD type: unspecified COPD Qualified Code(s): J44.9 - Chronic obstructive pulmonary disease, unspecified Annotation/Comment:: see above. Nebs. (6) Chronic anticoagulation SNOMED Code(s): 127017883 Code(s): Z79.01 - FDC (CURRENT) USE OF ANTICOAGULANTS Status: Acute Current Visit: No Annotation/Comment:: 2-3. Pharmacy to follow. Supratherapeutic today. (7) History of DVT (deep vein thrombosis) SNOMED Code(s): 941122010 Code(s): Z86.718 - PERSONAL HISTORY OF OTHER VENOUS THROMBOSIS AND EMBOLISM Status: Acute Current Visit: No (8) Mitral stenosis SNOMED Code(s): 48979930 Code(s): I05.0 - RHEUMATIC MITRAL STENOSIS Status: Acute Current Visit: No (9) Palliative care patient SNOMED Code(s): 684126298 Code(s): Z51.5 - ENCOUNTER FOR PALLIATIVE CARE Status: Acute Current Visit: No (10) CAD (coronary artery disease) SNOMED Code(s): 43631417 Code(s): I25.10 - ATHSCL HEART DISEASE OF [place] CORONARY ARTERY W/O ANG PCTRS Status: Chronic Current Visit: No Qualifiers: Associated angina: without angina (11) Chronic atrial fibrillation SNOMED Code(s): 613794824 Code(s): I48.2 - CHRONIC ATRIAL FIBRILLATION * DO NOT USE * Status: Chronic Current Visit: No (12) Hypertension SNOMED Code(s): 09484735 Code(s): I10 - ESSENTIAL (PRIMARY) HYPERTENSION Status: Chronic Current Visit: No Qualifiers: Hypertension type: essential hypertension Annotation/Comment:: See above. (13) Asymptomatic bacteriuria SNOMED Code(s): 747623689 Code(s): R82.71 - BACTERIURIA Status: Acute Current Visit: Yes - Problem List Review Problem List Initiated/Reviewed/Updated: Yes - My Orders Last 24 Hours: My Active Orders 05/05/19 09:17 Dietary Supplements [RC] TIDAC OT Evaluation and Treatment [CONS] Routine PT Evaluation and Treatment [CONS] Routine 05/05/19 Lunch Mechanical Soft Diet [DIET] 05/06/19 09:55 Furosemide [Lasix] 20 mg IVPUSH ONETIME ONE 05/07/19 05:11 BASIC METABOLIC PANEL,BMP [CHEM] AM CBC WITH AUTO DIFF [HEME] AM PRO B-TYPE NATRIUR PEPT,BNPPRO [CHEM] DAILY - Plan Plan:: I will give her one more time Lasix 20 mg. Repeat labs. Consider swing bed tomorrow
[2019-05-06] MEDS: MAGNESIUM 200 MG PO SCH (12:47)
[2019-05-06] MEDS ORDERED: Furosemide 20 MG/2 ML VIAL ONE (12:53)
[2019-05-06] MEDS ORDERED: WARFARIN 2.5 MG PO ONE (16:00)
[2019-05-06] MEDS ORDERED: Warfarin 2.5 MG Tab PO ONE (16:00)
[2019-05-06] MEDS ORDERED: Warfarin 2.5 MG Tab ONE (16:02)
[2019-05-06] MEDS: Simvastatin 10 MG Tab *PTOM PO SCH (21:19)
--- NOTE | 2019-05-07 09:14 | PCM.PN ---
- General Info Date of Service: 05/07/19 Admission Dx/Problem (Free Text): the patient denies shortness of breath although she is on oxygen and her O2 sat drops when she walks. She denies cough, chest pain. Leg swelling is much improved. She does not feel dizzy. - Patient Data Vitals - Most Recent: Last Vital Signs Temp 97.5 F 05/07/19 04:00 Pulse 110 H 05/07/19 04:00 Resp 18 05/07/19 04:00 BP 96/60 05/07/19 04:00 Pulse Ox 93 L 05/07/19 04:00 Orthostatic Blood Pressure [ 105/54 Standing] Orthostatic Blood Pressure [ 120/67 Sitting] Orthostatic Blood Pressure [ 126/70 Supine] Weight - Most Recent: 144 lb 12.8 oz Lab Results Last 24 Hours: Laboratory Results - last 24 hr 05/06/19 05/07/19 05/07/19 Range/Units 09:15 06:35 06:35 WBC 5.6 (4.5-12.0) X10-3/uL RBC 3.55 (3.23-5.20) x10(6)uL Hgb 10.2 L (11.5-15.5) g/dL Hct 31.9 (30.0-51.3) % MCV 89.8 (80-96) fL MCH 28.8 (27.7-33.6) pg MCHC 32.0 L (32.2-35.4) g/dL RDW 17.2 H (11.5-15.5) % Plt Count 217 (125-369) X10(3)uL MPV 8.1 (7.4-10.4) fL Neut % (Auto) 63.3 (46-82) % Lymph % (Auto) 18.6 (13-37) % Morgan % (Auto) 12.1 H (4-12) % Eos % (Auto) 5 (1.0-5.0) % Baso % (Auto) 1 (0-2) % Neut # (Auto) 3.6 (1.6-8.3) # Lymph # (Auto) 1.0 (0.6-5.0) # Morgan # (Auto) 0.7 (0.0-1.3) # Eos # (Auto) 0.3 (0.0-0.8) # Baso # (Auto) 0.0 (0.0-0.2) # PT 32.1 H (8.7-11.1) INR 3.35 H (0.89-1.13) Sodium 143 (135-145) mmol/L Potassium 4.2 (3.5-5.3) mmol/L Chloride 106 (100-110) mmol/L Carbon Dioxide 32 (21-32) mmol/L BUN 10 (7-18) mg/dL Creatinine 0.9 (0.55-1.02) mg/dL Est Cr Clr Drug Dosing 45.20 mL/min Estimated GFR (MDRD) > 60 (>60) BUN/Creatinine Ratio 11.1 (9-20) Glucose 94 (80-116) mg/dL Calcium 8.4 L (8.6-10.2) mg/dL NT-Pro-B Natriuret Pep (<=450) pg/mL 05/07/19 05/07/19 Range/Units 06:35 06:35 WBC (4.5-12.0) X10-3/uL RBC (3.23-5.20) x10(6)uL Hgb (11.5-15.5) g/dL Hct (30.0-51.3) % MCV (80-96) fL MCH (27.7-33.6) pg MCHC (32.2-35.4) g/dL RDW (11.5-15.5) % Plt Count (125-369) X10(3)uL MPV (7.4-10.4) fL Neut % (Auto) (46-82) % Lymph % (Auto) (13-37) % Morgan % (Auto) (4-12) % Eos % (Auto) (1.0-5.0) % Baso % (Auto) (0-2) % Neut # (Auto) (1.6-8.3) # Lymph # (Auto) (0.6-5.0) # Morgan # (Auto) (0.0-1.3) # Eos # (Auto) (0.0-0.8) # Baso # (Auto) (0.0-0.2) # PT 20.9 H (8.7-11.1) INR 2.17 H (0.89-1.13) Sodium (135-145) mmol/L Potassium (3.5-5.3) mmol/L Chloride (100-110) mmol/L Carbon Dioxide (21-32) mmol/L BUN (7-18) mg/dL Creatinine (0.55-1.02) mg/dL Est Cr Clr Drug Dosing mL/min Estimated GFR (MDRD) (>60) BUN/Creatinine Ratio (9-20) Glucose (80-116) mg/dL Calcium (8.6-10.2) mg/dL NT-Pro-B Natriuret Pep 3821 H* (<=450) pg/mL Med Orders - Current: Current Medications Albuterol (Ventolin Hfa) 0 gm INH Q4H PRN PRN Reason: WHEEZING Alprazolam (Xanax) 0.5 mg PO TID [facility] Last Admin: 05/06/19 21:20 Dose: 0.5 mg Aspirin (Halfprin) 81 mg PO DAILY [facility] Last Admin: 05/06/19 09:00 Dose: 81 mg Escitalopram Oxalate (Lexapro) 10 mg PO DAILY [facility] Last Admin: 05/06/19 09:01 Dose: 10 mg Metoprolol Tartrate (Lopressor) 50 mg PO BID [facility] Last Admin: 05/06/19 21:18 Dose: 50 mg Magnesium 200mg * (Ptom) 0 each PO DAILY@1200 [facility] Last Admin: 05/06/19 12:47 Dose: 1 each Symbicort 80/4.5 (Inhaler) 0 each INH BID [facility] Last Admin: 05/06/19 21:18 Dose: 2 each Oxybutynin Chloride (Oxybutynin) 5 mg PO BID [facility] Last Admin: 05/06/19 21:19 Dose: 5 mg Potassium Chloride (Klor-Con M20) 20 meq PO DAILY [facility] Last Admin: 05/06/19 09:00 Dose: 20 meq Simvastatin (Zocor) 5 mg PO BEDTIME [facility] Last Admin: 05/06/19 21:19 Dose: 5 mg Sodium Chloride (Saline Flush) 10 ml FLUSH ASDIRECTED PRN PRN Reason: Keep Vein Open Last Admin: 05/04/19 14:36 Dose: 10 ml Warfarin Sodium (Coumadin Sliding Scale) 1 each PO DAILY [facility] Discontinued Medications Albuterol (Ventolin Hfa) 0 gm INH Q4H PRN PRN Reason: WHEEZING Albuterol (Ventolin Hfa) 0 gm INH Q4H PRN PRN Reason: WHEEZING Furosemide (Lasix) 20 mg IVPUSH ONETIME ONE Stop: 05/05/19 09:16 Last Admin: 05/05/19 11:08 Dose: 20 mg Furosemide (Lasix) 20 mg IVPUSH ONETIME ONE Stop: 05/06/19 09:56 Last Admin: 05/06/19 12:55 Dose: 20 mg Furosemide (Lasix) Confirm Administered Dose 20 mg .ROUTE .STK-MED ONE Stop: 05/06/19 12:54 Last Admin: 05/06/19 13:43 Dose: Not Given Dextrose/Lactated Ringer's (Dextrose 5%-Lactated Ringers) 1,000 mls @ 500 mls/ hr IV ASDIRECTED [facility] Last Infusion: 05/05/19 15:24 Dose: Infused Metoprolol Tartrate (Lopressor) 50 mg PO BID [facility] Last Admin: 05/06/19 04:13 Dose: Not Given Mometasone Furoate/Formoterol Fumar (Dulera 100-5 Mcg) 0 puff IH BID [facility] Last Admin: 05/04/19 21:58 Dose: 2 puff Oxybutynin Chloride (Oxybutynin) 5 mg PO BID [facility] Last Admin: 05/06/19 04:13 Dose: Not Given Metoprolol Tartrate 100 Mg Tab * Pt Own Med* 0 each PO ONETIME ONE Stop: 05/04/19 22:01 Last Admin: 05/04/19 21:50 Dose: 50 each Oxybutynin 5 Mg Tab (*Pt Own Med*) 0 each PO ONETIME ONE Stop: 05/04/19 22:01 Last Admin: 05/04/19 21:48 Dose: 5 each Simvastatin 10 Mg (Tabs *Pt Own Med*) 0 each PO ONETIME ONE Stop: 05/04/19 22:01 Last Admin: 05/04/19 21:51 Dose: 5 each Simvastatin (Zocor) 5 mg PO BEDTIME [facility] Last Admin: 05/06/19 04:13 Dose: Not Given Warfarin Sodium (Coumadin) 5 mg PO ONETIME ONE Stop: 05/04/19 21:31 Last Admin: 05/04/19 21:49 Dose: 5 mg Warfarin Sodium (Coumadin) 1.25 mg PO 1600 ONE Stop: 05/06/19 16:01 Warfarin Sodium (Coumadin) 1.25 mg PO 1600 ONE Stop: 05/06/19 16:01 Last Admin: 05/06/19 16:06 Dose: 1.25 mg Warfarin Sodium (Coumadin) Confirm Administered Dose 2.5 mg .ROUTE .STK-MED ONE Stop: 05/06/19 16:03 Last Admin: 05/06/19 17:14 Dose: Not Given - Exam General: Alert, Oriented, Cooperative Neck: Supple Lungs: Clear to Auscultation, Crackles Cardiovascular: Irregular Rhythm, Tachycardia Extremities: No Pedal Edema - Problem List & Annotations (1) Aspiration pneumonia due to food (regurgitated) SNOMED Code(s): 03454390 Code(s): J69.0 - PNEUMONITIS DUE TO INHALATION OF FOOD AND VOMIT Status: Acute Current Visit: Yes (2) Asymptomatic bacteriuria SNOMED Code(s): 291912344 Code(s): R82.71 - BACTERIURIA Status: Acute Current Visit: Yes (3) COPD (chronic obstructive pulmonary disease) SNOMED Code(s): 96812119 Code(s): J44.9 - CHRONIC OBSTRUCTIVE PULMONARY DISEASE, UNSPECIFIED Status : Acute Current Visit: Yes Qualifiers: COPD type: unspecified COPD Qualified Code(s): J44.9 - Chronic obstructive pulmonary disease, unspecified Annotation/Comment:: see above. Nebs. (4) Congestive heart failure (CHF) SNOMED Code(s): 97012860 Code(s): I50.9 - HEART FAILURE, UNSPECIFIED Status: Acute Current Visit: Yes Qualifiers: Heart failure type: unspecified Heart failure chronicity: acute on chronic Qualified Code(s): I50.9 - Heart failure, unspecified (5) Essential tremor SNOMED Code(s): 426966609 Code(s): G25.0 - ESSENTIAL TREMOR Status: Acute Current Visit: Yes (6) ABHISHEK (generalized anxiety disorder) SNOMED Code(s): 97077872 Code(s): F41.1 - GENERALIZED ANXIETY DISORDER Status: Acute Current Visit : Yes (7) Afib SNOMED Code(s): 74266652 Code(s): I48.91 - UNSPECIFIED ATRIAL FIBRILLATION Status: Acute Current Visit: No Qualifiers: Atrial fibrillation type: chronic (8) Palliative care patient SNOMED Code(s): 910707147 Code(s): Z51.5 - ENCOUNTER FOR PALLIATIVE CARE Status: Acute Current Visit: No (9) Hypertension SNOMED Code(s): 90701065 Code(s): I10 - ESSENTIAL (PRIMARY) HYPERTENSION Status: Chronic Current Visit: No Qualifiers: Hypertension type: essential hypertension Annotation/Comment:: See above. - Problem List Review Problem List Initiated/Reviewed/Updated: Yes - My Orders Last 24 Hours: My Active Orders 05/08/19 06:00 INR,PT,PROTHROMBIN TIME [COAG] DAILY 05/09/19 06:00 INR,PT,PROTHROMBIN TIME [COAG] DAILY 05/10/19 06:00 INR,PT,PROTHROMBIN TIME [COAG] DAILY 05/11/19 06:00 INR,PT,PROTHROMBIN TIME [COAG] DAILY 05/12/19 06:00 INR,PT,PROTHROMBIN TIME [COAG] DAILY - Plan Plan:: 1. 10 milligrams of Lasix Po daily keep the swelling down. 2. Transfer to swing bed when the entrance okays it.
[2019-05-07] MEDS ORDERED: Furosemide 20 MG Tab PO SCH (09:15)
[2019-05-07] MEDS: Aspirin 81 MG Tab.EC *PTOM PO SCH (09:30)
[2019-05-07] MEDS: Escitalopram 10 MG Tab *PTOM PO SCH (09:30)
[2019-05-07] MEDS: Potassium Chloride 20 MEQ Tab.ER *PTOM PO SCH (09:30)
[2019-05-07] MEDS: Metoprolol Tartrate 100 MG Tab *PTOM PO SCH (09:31)
[2019-05-07] MEDS: SYMBICORT INH SCH (09:32)
[2019-05-07] MEDS: OXYBUTYNIN 5 MG PO SCH (09:32)
[2019-05-07] MEDS: ALPRAZolam 0.5 MG Tab PO SCH ×2 (09:41→13:36)
[2019-05-07] MEDS: MAGNESIUM 200 MG PO SCH (11:39)
--- NOTE | 2019-05-07 13:11 | PCM.DCSUM1 ---
Discharge Summary - Hospital Course Free Text/Narrative:: Hospital course-patient was admitted and given Lasix 20 mg a day IV then by mouth. Her diltiazem was stopped and metoprolol was decreased from 150 twice a day to 50 twice a day. Patient's blood pressures really low. This helped her blood pressure remained above 95 systolic. Her pulse was around 100. She had swelling and that improved. Denied chest pain or shortness breath. Her chest x -ray showed aspiration pneumonia. This is chronic from swallowing issues that she's had for many years. Spent worked up and they refused anymore swelling studies are speech therapy. Patient requiring oxygen. She started improving her strength and had PT/OT it appears felt that she would do well swing bed and she will be transferred. She also had nitrate positive. She was asymptomatic for UTI. It was not cultured. She never had a positive dysuria, pyuria or hematuria. Brief History: Kati is a 79-year-old female brought in from the clinic yesterday for generalis weakness shortness of breath and hypotension. She has a history of COPD, pneumonia, atrial fibrillation, mitral valve replacement, CABG , and possibly CHF. She also has essential tremor,and anxiety. She's lost a lot of weight in the last few weeks has been generally weak and progressively having problems with ambulation. At the clinic she was found to have a low blood pressure and then she had hypoxia upon presentation to the ER. Overnight she got some fluids as well as supplemental oxygenation. She denies any chest pain, fever,chills but she does have dysphagia and choking,with chronic infiltrates in the lungs likely to be due to aspiration.However,she denies any fever or chills and she does not endorse any urinary or respiratory symptoms. Diagnosis: Stroke: No - Discharge Data Discharge Date: 05/07/19 Discharge Disposition: DC/Tfer W/I Hosp To Swing 61 Condition: Stable - Referral to Home Health Primary Care Physician: Ann Joseph NP - Discharge Diagnosis/Problem(s) (1) Aspiration pneumonia due to food (regurgitated) SNOMED Code(s): 44080061 ICD Code: J69.0 - PNEUMONITIS DUE TO INHALATION OF FOOD AND VOMIT Status: Acute Current Visit: Yes (2) Asymptomatic bacteriuria SNOMED Code(s): 288907246 ICD Code: R82.71 - BACTERIURIA Status: Acute Current Visit: Yes (3) COPD (chronic obstructive pulmonary disease) SNOMED Code(s): 89879054 ICD Code: J44.9 - CHRONIC OBSTRUCTIVE PULMONARY DISEASE, UNSPECIFIED Status : Acute Current Visit: Yes Problem Details: see above. Nebs. Qualifiers: COPD type: unspecified COPD Qualified Code(s): J44.9 - Chronic obstructive pulmonary disease, unspecified (4) Congestive heart failure (CHF) SNOMED Code(s): 95582332 ICD Code: I50.9 - HEART FAILURE, UNSPECIFIED Status: Acute Current Visit : Yes Qualifiers: Heart failure type: unspecified Heart failure chronicity: acute on chronic Qualified Code(s): I50.9 - Heart failure, unspecified (5) Essential tremor SNOMED Code(s): 117771776 ICD Code: G25.0 - ESSENTIAL TREMOR Status: Acute Current Visit: Yes (6) ABHISHEK (generalized anxiety disorder) SNOMED Code(s): 22778846 ICD Code: F41.1 - GENERALIZED ANXIETY DISORDER Status: Acute Current Visit: Yes (7) Afib SNOMED Code(s): 89354219 ICD Code: I48.91 - UNSPECIFIED ATRIAL FIBRILLATION Status: Acute Current Visit: No Qualifiers: Atrial fibrillation type: chronic (8) Palliative care patient SNOMED Code(s): 919099339 ICD Code: Z51.5 - ENCOUNTER FOR PALLIATIVE CARE Status: Acute Current Visit: No (9) Hypertension SNOMED Code(s): 75375212 ICD Code: I10 - ESSENTIAL (PRIMARY) HYPERTENSION Status: Chronic Current Visit: No Problem Details: See above. Qualifiers: Hypertension type: essential hypertension - Patient Summary/Data Consults: Consultations 05/05/19 09:17 OT Evaluation and Treatment [CONS] Routine Please Evaluate and Treat. OT Reason for Consult: ADL's This query below is only for informational purposes and is not editable. Admission Diagnosis/Problem: COPD, Moderate chronic obstructive pulmonary disease PT Evaluation and Treatment [CONS] Routine Please Evaluate and Treat. PT Reason for Consult: Ambulation This query below is only for informational purposes and is not editable. Admission Diagnosis/Problem: COPD, Moderate chronic obstructive pulmonary disease - Patient Instructions Diet: Heart Healthy Diet, Low Sodium Activity: As Tolerated Driving: Do Not Drive Showering/Bathing: May Shower Other/Special Instructions: 1. Transfer to swing bed for PT/OT. 2. O2 to keep sats greater than 90% nasal cannula. - Discharge Plan *PRESCRIPTION DRUG MONITORING PROGRAM REVIEWED*: Not Applicable *COPY OF PRESCRIPTION DRUG MONITORING REPORT IN PATIENT ISHAAN: Not Applicable Home Medications: Home Meds Simvastatin 5 mg PO BEDTIME 10/13/13 [History] Albuterol Sulfate [Proair Hfa] 2 puff IH Q4H PRN 03/23/17 [History] Aspirin 81 mg PO DAILY 03/23/17 [History] Warfarin [Coumadin] 1.25 mg PO TU 03/23/17 [History] ALPRAZolam [Xanax] 0.5 mg PO TID 03/27/17 [History] Budesonide/Formoterol Fumarate [Symbicort 80-4.5 MCG] 2 puff INH BID 08/10/18 [ History] Escitalopram [Lexapro] 10 mg PO DAILY 08/10/18 [History] Oxybutynin 5 mg PO BID #60 tablet 09/11/18 [Rx] Potassium Chloride 20 meq PO DAILY #30 tablet.er 09/11/18 [Rx] Albuterol/Ipratropium [DuoNeb 3.0-0.5 MG/3 ML] 3 ml IH Q4H PRN 05/04/19 [History ] Magnesium 200 mg PO DAILY@1200 05/04/19 [History] Warfarin [Coumadin] 2.5 mg PO SUMOWETHFRSA 05/04/19 [History] Furosemide [Lasix] 10 mg PO DAILY tablet 05/07/19 [Rx] Metoprolol Tartrate [Lopressor] 50 mg PO BID tablet 05/07/19 [Rx] Patient Handouts: Shortness of Breath, Adult, [id number], Fall Prevention in Hospitals, Adult, Venous Thromboembolism Prevention Forms: ED Department Discharge Referrals: Ann Joseph NP [Primary Care Provider] - - Discharge Summary/Plan Comment DC Time >30 min.: No - Patient Data Vitals - Most Recent: Last Vital Signs Temp 97.7 F 05/07/19 08:00 Pulse 106 H 05/07/19 09:31 Resp 18 05/07/19 08:00 BP 96/60 05/07/19 09:31 Pulse Ox 95 05/07/19 08:00 Orthostatic Blood Pressure [ 105/54 Standing] Orthostatic Blood Pressure [ 120/67 Sitting] Orthostatic Blood Pressure [ 126/70 Supine] Weight - Most Recent: 144 lb 12.8 oz Lab Results - Last 24 hrs: Laboratory Results - last 24 hr 05/07/19 05/07/19 05/07/19 Range/Units 06:35 06:35 06:35 WBC 5.6 (4.5-12.0) X10-3/uL RBC 3.55 (3.23-5.20) x10(6)uL Hgb 10.2 L (11.5-15.5) g/dL Hct 31.9 (30.0-51.3) % MCV 89.8 (80-96) fL MCH 28.8 (27.7-33.6) pg MCHC 32.0 L (32.2-35.4) g/dL RDW 17.2 H (11.5-15.5) % Plt Count 217 (125-369) X10(3)uL MPV 8.1 (7.4-10.4) fL Neut % (Auto) 63.3 (46-82) % Lymph % (Auto) 18.6 (13-37) % Ector % (Auto) 12.1 H (4-12) % Eos % (Auto) 5 (1.0-5.0) % Baso % (Auto) 1 (0-2) % Neut # (Auto) 3.6 (1.6-8.3) # Lymph # (Auto) 1.0 (0.6-5.0) # Ector # (Auto) 0.7 (0.0-1.3) # Eos # (Auto) 0.3 (0.0-0.8) # Baso # (Auto) 0.0 (0.0-0.2) # PT (8.7-11.1) INR (0.89-1.13) Sodium 143 (135-145) mmol/L Potassium 4.2 (3.5-5.3) mmol/L Chloride 106 (100-110) mmol/L Carbon Dioxide 32 (21-32) mmol/L BUN 10 (7-18) mg/dL Creatinine 0.9 (0.55-1.02) mg/dL Est Cr Clr Drug Dosing 45.20 mL/min Estimated GFR (MDRD) > 60 (>60) BUN/Creatinine Ratio 11.1 (9-20) Glucose 94 (80-116) mg/dL Calcium 8.4 L (8.6-10.2) mg/dL NT-Pro-B Natriuret Pep 3821 H* (<=450) pg/mL 05/07/19 Range/Units 06:35 WBC (4.5-12.0) X10-3/uL RBC (3.23-5.20) x10(6)uL Hgb (11.5-15.5) g/dL Hct (30.0-51.3) % MCV (80-96) fL MCH (27.7-33.6) pg MCHC (32.2-35.4) g/dL RDW (11.5-15.5) % Plt Count (125-369) X10(3)uL MPV (7.4-10.4) fL Neut % (Auto) (46-82) % Lymph % (Auto) (13-37) % Ector % (Auto) (4-12) % Eos % (Auto) (1.0-5.0) % Baso % (Auto) (0-2) % Neut # (Auto) (1.6-8.3) # Lymph # (Auto) (0.6-5.0) # Ector # (Auto) (0.0-1.3) # Eos # (Auto) (0.0-0.8) # Baso # (Auto) (0.0-0.2) # PT 20.9 H (8.7-11.1) INR 2.17 H (0.89-1.13) Sodium (135-145) mmol/L Potassium (3.5-5.3) mmol/L Chloride (100-110) mmol/L Carbon Dioxide (21-32) mmol/L BUN (7-18) mg/dL Creatinine (0.55-1.02) mg/dL Est Cr Clr Drug Dosing mL/min Estimated GFR (MDRD) (>60) BUN/Creatinine Ratio (9-20) Glucose (80-116) mg/dL Calcium (8.6-10.2) mg/dL NT-Pro-B Natriuret Pep (<=450) pg/mL Med Orders - Current: Current Medications Albuterol (Ventolin Hfa) 0 gm INH Q4H PRN PRN Reason: WHEEZING Alprazolam (Xanax) 0.5 mg PO TID [facility] Last Admin: 05/07/19 09:41 Dose: 0.5 mg Aspirin (Halfprin) 81 mg PO DAILY [facility] Last Admin: 05/07/19 09:30 Dose: 81 mg Escitalopram Oxalate (Lexapro) 10 mg PO DAILY [facility] Last Admin: 05/07/19 09:30 Dose: 10 mg Furosemide (Lasix) 10 mg PO DAILY [facility] Last Admin: 05/07/19 09:50 Dose: 10 mg Metoprolol Tartrate (Lopressor) 50 mg PO BID [facility] Last Admin: 05/07/19 09:31 Dose: 50 mg Magnesium 200mg * (Ptom) 0 each PO DAILY@1200 [facility] Last Admin: 05/07/19 11:39 Dose: 1 each Symbicort 80/4.5 (Inhaler) 0 each INH BID [facility] Last Admin: 05/07/19 09:32 Dose: 2 each Oxybutynin Chloride (Oxybutynin) 5 mg PO BID [facility] Last Admin: 05/07/19 09:32 Dose: 5 mg Potassium Chloride (Klor-Con M20) 20 meq PO DAILY [facility] Last Admin: 05/07/19 09:30 Dose: 20 meq Simvastatin (Zocor) 5 mg PO BEDTIME [facility] Last Admin: 05/06/19 21:19 Dose: 5 mg Sodium Chloride (Saline Flush) 10 ml FLUSH ASDIRECTED PRN PRN Reason: Keep Vein Open Last Admin: 05/04/19 14:36 Dose: 10 ml Warfarin Sodium (Coumadin Sliding Scale) 1 each PO DAILY [facility] Warfarin Sodium (Coumadin) 2.5 mg PO ONETIME ONE Stop: 05/07/19 16:01 Discontinued Medications Albuterol (Ventolin Hfa) 0 gm INH Q4H PRN PRN Reason: WHEEZING Albuterol (Ventolin Hfa) 0 gm INH Q4H PRN PRN Reason: WHEEZING Furosemide (Lasix) 20 mg IVPUSH ONETIME ONE Stop: 05/05/19 09:16 Last Admin: 05/05/19 11:08 Dose: 20 mg Furosemide (Lasix) 20 mg IVPUSH ONETIME ONE Stop: 05/06/19 09:56 Last Admin: 05/06/19 12:55 Dose: 20 mg Furosemide (Lasix) Confirm Administered Dose 20 mg .ROUTE .STK-MED ONE Stop: 05/06/19 12:54 Last Admin: 05/06/19 13:43 Dose: Not Given Dextrose/Lactated Ringer's (Dextrose 5%-Lactated Ringers) 1,000 mls @ 500 mls/ hr IV ASDIRECTED [facility] Last Infusion: 05/05/19 15:24 Dose: Infused Metoprolol Tartrate (Lopressor) 50 mg PO BID [facility] Last Admin: 05/06/19 04:13 Dose: Not Given Mometasone Furoate/Formoterol Fumar (Dulera 100-5 Mcg) 0 puff IH BID [facility] Last Admin: 05/04/19 21:58 Dose: 2 puff Oxybutynin Chloride (Oxybutynin) 5 mg PO BID [facility] Last Admin: 05/06/19 04:13 Dose: Not Given Metoprolol Tartrate 100 Mg Tab * Pt Own Med* 0 each PO ONETIME ONE Stop: 05/04/19 22:01 Last Admin: 05/04/19 21:50 Dose: 50 each Oxybutynin 5 Mg Tab (*Pt Own Med*) 0 each PO ONETIME ONE Stop: 05/04/19 22:01 Last Admin: 05/04/19 21:48 Dose: 5 each Simvastatin 10 Mg (Tabs *Pt Own Med*) 0 each PO ONETIME ONE Stop: 05/04/19 22:01 Last Admin: 05/04/19 21:51 Dose: 5 each Simvastatin (Zocor) 5 mg PO BEDTIME [facility] Last Admin: 05/06/19 04:13 Dose: Not Given Warfarin Sodium (Coumadin) 5 mg PO ONETIME ONE Stop: 05/04/19 21:31 Last Admin: 05/04/19 21:49 Dose: 5 mg Warfarin Sodium (Coumadin) 1.25 mg PO 1600 ONE Stop: 05/06/19 16:01 Warfarin Sodium (Coumadin) 1.25 mg PO 1600 ONE Stop: 05/06/19 16:01 Last Admin: 05/06/19 16:06 Dose: 1.25 mg Warfarin Sodium (Coumadin) Confirm Administered Dose 2.5 mg .ROUTE .STK-MED ONE Stop: 05/06/19 16:03 Last Admin: 05/06/19 17:14 Dose: Not Given
[2019-05-07] MEDS ORDERED: Warfarin 2.5 MG Tab PO ONE (16:00)
== END 2019-05-07 12:29 | disposition swing bed (61) ==
LOC: FB.ED 12:33 → FB.MS 16:44
PROVIDERS: ADMIT Family Medicine; ATTEND Family Medicine
DX: J69.0 Pneumonitis due to inhalation of food and vomit (principal); R82.71 Bacteriuria; J44.9 Chronic obstructive pulmonary disease, unspecified; I11.0 Hypertensive heart disease with heart failure; I50.9 Heart failure, unspecified; F41.1 Generalized anxiety disorder; G25.0 Essential tremor; I05.0 Rheumatic mitral stenosis; I25.10 Atherosclerotic heart disease of native coronary artery without angina pectoris; I48.20 Chronic atrial fibrillation, unspecified; E78.00 Pure hypercholesterolemia, unspecified; Z79.82 Long term (current) use of aspirin; Z79.01 Long term (current) use of anticoagulants; Z79.51 Long term (current) use of inhaled steroids; Z79.899 Other long term (current) drug therapy; Z88.8 Allergy status to other drugs, medicaments and biological substances; Z88.5 Allergy status to narcotic agent; Z86.718 Personal history of other venous thrombosis and embolism; Z95.2 Presence of prosthetic heart valve; Z95.1 Presence of aortocoronary bypass graft
CPT/HCPCS: 36415; 51798; 80048; 81001; 83605; 83880; 85025; 85610; 85651; 94150; 94760; 96374; 96376; 97110-GO; 97110-GP; 97161-GP; 97165-GO; 97530-GP; 99285; A9270-GY; G0378; J1940; J7042

== ENCOUNTER 2019-05-07 12:30 | Inpatient (IN) | payer MEDICARE ==
[2019-05-07] MEDS ORDERED: Albuterol 8 GM Inhaler INH PRN (14:47)
[2019-05-07] MEDS ORDERED: Albuterol/Ipratropium 3.0-0.5 MG/3 ML Neb Soln INH PRN (14:47)
[2019-05-07] MEDS ORDERED: Warfarin Sliding Scale PO SCH (15:00)
[2019-05-07] MEDS: Warfarin 2.5 MG Tab PO SCH (16:04)
--- NOTE | 2019-05-07 17:10 | PCM.HP.2 ---
H&P History of Present Illness - General Date of Service: 05/07/19 Admit Problem/Dx: Admission Diagnosis/Problem Admission Diagnosis/Problem CHF, Congestive heart failure Source of Information: Patient, Old Records History Limitations: Reports: No Limitations - History of Present Illness Initial Comments - Free Text/Narative: 79-year-old female patient with history of CHF, CAD, atrial fibrillation comes in for progressive weakness and fatigue. She was found to have chronic aspiration pneumonia. This was no before and she's had swallowing studies speech therapy before. He was hypotensive and she was on Cardizem and metoprolol for rapid A. fib. The attending stop the Cardizem and lowered the metoprolol for 150 twice a day to 50 twice a day. Patient's pulse went to just around 100 but her dizziness went away. She was given Lasix for leg swelling when she had when she came in that worked well for her. Required oxygen which she was here to keep process greater than 90%. - Related Data Allergies/Adverse Reactions: Allergies Allergy/AdvReac Type Severity Reaction Status Date / Time meperidine HCl [From Demerol] Allergy Severe Tachycardia Verified 05/04/19 17:44 nystatin Allergy Severe Rash Verified 05/04/19 17:44 propranolol HCl Allergy Tachycardia Verified 05/04/19 17:44 [From Inderal LA] Sulfa (Sulfonamide Allergy flu like Verified 05/04/19 17:44 Antibiotics) symptoms Home Medications: Home Meds Simvastatin 5 mg PO BEDTIME 10/13/13 [History] Albuterol Sulfate [Proair Hfa] 2 puff IH Q4H PRN 03/23/17 [History] Aspirin 81 mg PO DAILY 03/23/17 [History] Warfarin [Coumadin] 1.25 mg PO TU 03/23/17 [History] ALPRAZolam [Xanax] 0.5 mg PO TID 03/27/17 [History] Budesonide/Formoterol Fumarate [Symbicort 80-4.5 MCG] 2 puff INH BID 08/10/18 [ History] Escitalopram [Lexapro] 10 mg PO DAILY 08/10/18 [History] Oxybutynin 5 mg PO BID #60 tablet 09/11/18 [Rx] Potassium Chloride 20 meq PO DAILY #30 tablet.er 09/11/18 [Rx] Albuterol/Ipratropium [DuoNeb 3.0-0.5 MG/3 ML] 3 ml IH Q4H PRN 05/04/19 [History ] Magnesium 200 mg PO DAILY@1200 05/04/19 [History] Warfarin [Coumadin] 2.5 mg PO SUMOWETHFRSA 05/04/19 [History] Furosemide [Lasix] 10 mg PO DAILY tablet 05/07/19 [Rx] Metoprolol Tartrate [Lopressor] 50 mg PO BID tablet 05/07/19 [Rx] Past Medical History HEENT History: Reports: Cataract, Other (See Below) Other HEENT History: DYSPHAGIA Cardiovascular History: Reports: Afib, Arrhythmia, Blood Clots/VTE/DVT, CAD, High Cholesterol, Hypertension, Other (See Below) Other Cardiovascular History: MITRAL STENOSIS Respiratory History: Reports: Asthma, COPD Gastrointestinal History: Reports: None Genitourinary History: Reports: None 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: Musculoskeletal History: Reports: Fracture Neurological History: Reports: Other (See Below) Other Neuro History: tremors; TORTICOLLIS Psychiatric History: Reports: Anxiety Endocrine/Metabolic History: Reports: None Hematologic History: Reports: Other (See Below) Other Hematologic History: HX OF DVT OF LOWER EXTREMITY; 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 Immunologic History: Reports: None Oncologic (Cancer) History: Reports: Other (See Below) Other Oncologic History: 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" Dermatologic History: Reports: Other (See Below) Other Dermatologic History: HX OF BASAL CELL CARCINOMA EXCISION - Infectious Disease History Other Infectious Disease History: pt doesn't remember - Past Surgical History HEENT Surgical History: Reports: Cataract Surgery, Other (See Below) Other HEENT Surgeries/Procedures: surgery right ear Cardiovascular Surgical History: Reports: Coronary Artery Bypass, Valve Replacement GI Surgical History: Reports: Appendectomy, Cholecystectomy, Other (See Below) Other GI Surgeries/Procedures: Had feeding tube for 1 1/2 years after bypass surgery in 2013 due to inability to swallow Female Surgical History: Reports: Hysterectomy Musculoskeletal Surgical History: Reports: ORIF Social & Family History - Family History Family Medical History: Noncontributory - Tobacco Use Smoking Status *Q: Never Smoker - Caffeine Use Caffeine Use: Reports: None - Recreational Drug Use Recreational Drug Use: No H&P Review of Systems - Review of Systems: Review Of Systems: See Below General: Reports: No Symptoms HEENT: Reports: No Symptoms Pulmonary: Reports: No Symptoms Cardiovascular: Reports: No Symptoms Gastrointestinal: Reports: No Symptoms Genitourinary: Reports: No Symptoms Musculoskeletal: Reports: No Symptoms Skin: Reports: No Symptoms Psychiatric: Reports: No Symptoms Neurological: Reports: No Symptoms Exam - Exam Exam: See Below - Vital Signs Vital Signs: Last Vital Signs Temp 97.9 F 05/07/19 13:00 Pulse 96 05/07/19 13:00 Resp 18 05/07/19 13:00 BP 96/60 05/07/19 13:00 Pulse Ox 94 L 05/07/19 14:00 Weight: 142 lb 9 oz - Exam General: Alert, Oriented, Cooperative HEENT: Mucosa Moist & [place] Neck: Supple, Trachea Midline Lungs: Clear to Auscultation, Crackles. No: Rales, Rhonchi Cardiovascular: Irregular Rhythm, Tachycardia GI/Abdominal Exam: Non-Tender, No Distention Back Exam: Normal Inspection, Full Range of Motion Extremities: No Pedal Edema Neuro Extensive - Mental Status: Alert, Oriented x3, Normal Mood/Affect Psychiatric: Alert, Normal Mood - Problem List (1) Aspiration pneumonia due to food (regurgitated) SNOMED Code(s): 85357223 ICD Code: J69.0 - PNEUMONITIS DUE TO INHALATION OF FOOD AND VOMIT Status: Acute Current Visit: No (2) Congestive heart failure (CHF) SNOMED Code(s): 87707354 ICD Code: I50.9 - HEART FAILURE, UNSPECIFIED Status: Acute Current Visit : No (3) Essential tremor SNOMED Code(s): 907475865 ICD Code: G25.0 - ESSENTIAL TREMOR Status: Acute Current Visit: No (4) Chronic atrial fibrillation SNOMED Code(s): 410364558 ICD Code: I48.2 - CHRONIC ATRIAL FIBRILLATION * DO NOT USE * Status: Chronic Current Visit: No Problem List Initiated/Reviewed/Updated: Yes Orders Last 24hrs: Active Orders 24 hr Category Date Time Status Patient Status [ADT] Routine ADT 05/07/19 14:45 Active Height and Weight [RC] WEEKLY Care 05/07/19 14:45 Active Oxygen Therapy [RC] PRN Care 05/07/19 14:45 Active Up With Assistance [RC] ASDIRECTED Care 05/07/19 14:45 Active VTE/DVT Education [RC] Per Unit Routine Care 05/07/19 14:45 Active Vital Signs [RC] PER UNIT ROUTINE Care 05/07/19 14:45 Active OT Evaluation and Treatment [CONS] Routine Cons 05/07/19 14:45 Active PT Evaluation and Treatment [CONS] Routine Cons 05/07/19 14:45 Active 2 Gram Sodium Diet [DIET] Diet 05/07/19 Dinner Active INR,PT,PROTHROMBIN TIME [COAG] Q2D Lab 05/09/19 14:59 Ordered INR,PT,PROTHROMBIN TIME [COAG] Q2D Lab 05/11/19 14:59 Ordered INR,PT,PROTHROMBIN TIME [COAG] Q2D Lab 05/13/19 14:59 Ordered INR,PT,PROTHROMBIN TIME [COAG] Q2D Lab 05/15/19 14:59 Ordered INR,PT,PROTHROMBIN TIME [COAG] Q2D Lab 05/17/19 14:59 Ordered ALPRAZolam [Xanax] Med 05/07/19 21:00 Active 0.5 mg PO TID Albuterol [Ventolin HFA] Med 05/07/19 14:47 Active 0 gm INH Q4H PRN Albuterol/Ipratropium [DuoNeb 3.0-0.5 MG/3 ML] Med 05/07/19 14:47 Active 3 ml INH Q4H PRN Aspirin Med 05/08/19 09:00 Active 81 mg PO DAILY Budesonide/Formoterol Fumarate [Symbicort 80-4.5 MCG] Med 05/07/19 21:00 Active 2 puff INH BID Escitalopram [Lexapro] Med 05/08/19 09:00 Active 10 mg PO DAILY Furosemide [Lasix] Med 05/08/19 09:00 Active 10 mg PO DAILY Magnesium [Magnesium] Med 05/08/19 12:00 Active 200 mg PO DAILY@1200 Metoprolol Tartrate [Lopressor] Med 05/07/19 21:00 Active 50 mg PO BID Oxybutynin Med 05/07/19 21:00 Active 5 mg PO BID Potassium Chloride [Klor-Con M20] Med 05/08/19 09:00 Active 20 meq PO DAILY Simvastatin [Zocor] Med 05/07/19 21:00 Active 5 mg PO BEDTIME Warfarin Sliding Scale [Coumadin Sliding Scale] Med 05/07/19 15:00 Pending 1 each PO ASDIRECTED Warfarin [Coumadin] Med 05/11/19 16:00 Active 1.25 mg PO Tu@1600 Warfarin [Coumadin] Med 05/07/19 16:00 Active 2.5 mg PO [id number] Resuscitation Status Routine Resus Stat 05/07/19 14:45 Ordered Medication Orders Albuterol (Ventolin Hfa) 0 gm INH Q4H PRN PRN Reason: Wheezing Albuterol/Ipratropium (Duoneb 3.0-0.5 Mg/3 Ml) 3 ml INH Q4H PRN PRN Reason: Shortness of Breath Alprazolam (Xanax) 0.5 mg PO TID [facility] Aspirin (Aspirin) 81 mg PO DAILY [facility] Escitalopram Oxalate (Lexapro) 10 mg PO DAILY [facility] Furosemide (Lasix) 10 mg PO DAILY [facility] Metoprolol Tartrate (Lopressor) 50 mg PO BID [facility] Symbicort 80-4.5 Mcg (Inhaler *Ptom) 2 puff INH BID [facility] Magnesium 200 Mg * (Ptom) 200 mg PO DAILY@1200 [facility] Oxybutynin Chloride (Oxybutynin) 5 mg PO BID [facility] Potassium Chloride (Klor-Con M20) 20 meq PO DAILY [facility] Simvastatin (Zocor) 5 mg PO BEDTIME [facility] Warfarin Sodium (Coumadin) 1.25 mg PO Tu@1600 [facility] Warfarin Sodium (Coumadin) 2.5 mg PO [id number]@1600 [facility] Last Admin: 05/07/19 16:04 Dose: 2.5 mg Warfarin Sodium (Coumadin Sliding Scale) 1 each PO ASDIRECTED [facility] Assessment/Plan Comment:: 1. Admit to swing bed. 2. Continue same medication she was on in the hospital. 3. PT/OT 4. Oxygen nasal cannula keep sats greater than 90% 5. Heart healthy low-sodium diet 6.. Up ad derrick. - Mortality Measure Prognosis:: Good
[2019-05-07] MEDS: Simvastatin 10 MG Tab PO SCH (20:40)
[2019-05-07] MEDS: Oxybutynin 5 MG Tab PO SCH (20:40)
[2019-05-07] MEDS: Metoprolol Tartrate 50 MG Tab PO SCH (20:40)
[2019-05-07] MEDS: ALPRAZolam 1 MG Tab PO SCH (20:46)
[2019-05-08] MEDS ORDERED: Warfarin Sliding Scale PO SCH (09:00)
[2019-05-08] MEDS: Aspirin 81 MG Tab.Chew PO SCH (09:26)
[2019-05-08] MEDS: Potassium Chloride 20 MEQ Tab.ER PO SCH (09:28)
[2019-05-08] MEDS: Escitalopram 10 MG Tab PO SCH (09:29)
[2019-05-08] MEDS: Furosemide 20 MG Tab PO SCH (09:29)
[2019-05-08] MEDS: Metoprolol Tartrate 50 MG Tab PO SCH ×2 (09:30→21:01)
[2019-05-08] MEDS: Oxybutynin 5 MG Tab PO SCH ×2 (09:31→21:01)
[2019-05-08] MEDS: ALPRAZolam 1 MG Tab PO SCH ×3 (09:35→21:01)
[2019-05-08] MEDS: MAGNESIUM 200 MG PO SCH (11:55)
[2019-05-08] MEDS: Warfarin 2.5 MG Tab PO SCH (16:07)
[2019-05-08] MEDS: Simvastatin 10 MG Tab PO SCH (21:02)
[2019-05-09] MEDS: Ondansetron 4 MG Tab.DIS PO PRN (08:22)
[2019-05-09] MEDS: ALPRAZolam 1 MG Tab PO SCH ×3 (08:22→21:13)
[2019-05-09] MEDS: Aspirin 81 MG Tab.Chew PO SCH (10:15)
[2019-05-09] MEDS: Potassium Chloride 20 MEQ Tab.ER PO SCH (10:17)
[2019-05-09] MEDS: Metoprolol Tartrate 50 MG Tab PO SCH (10:17)
[2019-05-09] MEDS: Oxybutynin 5 MG Tab PO SCH ×2 (10:17→21:14)
[2019-05-09] MEDS: Furosemide 20 MG Tab PO SCH (10:17)
[2019-05-09] MEDS: Escitalopram 10 MG Tab PO SCH (10:18)
--- NOTE | 2019-05-09 11:29 | PCM.PN ---
- General Info Date of Service: 05/09/19 Admission Dx/Problem (Free Text): Patient is without complaints. Nurses report she still runs a little tachycardic at 105-110. She denies shortness of breath, chest pain, leg swelling. She's been getting weaned off the oxygen although she is on a little bit today - Patient Data Vitals - Most Recent: Last Vital Signs Temp 98.1 F 05/08/19 08:00 Pulse 110 H 05/09/19 10:17 Resp 18 05/08/19 16:00 BP 114/70 05/09/19 10:17 Pulse Ox 92 L 05/09/19 06:30 Weight - Most Recent: 144 lb 4.8 oz Lab Results Last 24 Hours: Laboratory Results - last 24 hr 05/09/19 Range/Units 06:25 PT 14.0 H (8.7-11.1) INR 1.45 H (0.89-1.13) Med Orders - Current: Current Medications Albuterol (Ventolin Hfa) 0 gm INH Q4H PRN PRN Reason: Wheezing Albuterol/Ipratropium (Duoneb 3.0-0.5 Mg/3 Ml) 3 ml INH Q4H PRN PRN Reason: Shortness of Breath Alprazolam (Xanax) 0.5 mg PO TID [facility] Last Admin: 05/09/19 08:22 Dose: 0.5 mg Aspirin (Aspirin) 81 mg PO DAILY [facility] Last Admin: 05/09/19 10:15 Dose: 81 mg Escitalopram Oxalate (Lexapro) 10 mg PO DAILY [facility] Last Admin: 05/09/19 10:18 Dose: 10 mg Furosemide (Lasix) 10 mg PO DAILY [facility] Last Admin: 05/09/19 10:17 Dose: 10 mg Metoprolol Tartrate (Lopressor) 50 mg PO BID [facility] Last Admin: 05/09/19 10:17 Dose: 50 mg Symbicort 80-4.5 Mcg (Inhaler *Ptom) 2 puff INH BID [facility] Last Admin: 05/09/19 10:16 Dose: 2 puff Magnesium 200 Mg * (Ptom) 200 mg PO DAILY@1200 [facility] Last Admin: 05/08/19 11:55 Dose: 200 mg Ondansetron HCl (Zofran Odt) 4 mg PO Q6H PRN PRN Reason: Nausea/Vomiting Last Admin: 05/09/19 08:22 Dose: 4 mg Oxybutynin Chloride (Oxybutynin) 5 mg PO BID [facility] Last Admin: 05/09/19 10:17 Dose: 5 mg Potassium Chloride (Klor-Con M20) 20 meq PO DAILY [facility] Last Admin: 05/09/19 10:17 Dose: 20 meq Simvastatin (Zocor) 5 mg PO BEDTIME [facility] Last Admin: 05/08/19 21:02 Dose: 5 mg Warfarin Sodium (Coumadin) 1.25 mg PO Tu@1600 [facility] Warfarin Sodium (Coumadin Sliding Scale) 1 each PO ASDIRECTED [facility] Warfarin Sodium (Coumadin) 2.5 mg PO SuMoWeThFrSa@1600 [facility] Warfarin Sodium (Coumadin) 4 mg PO ONETIME ONE Stop: 05/09/19 16:01 Discontinued Medications Warfarin Sodium (Coumadin) 2.5 mg PO SuMoWeThFrSa@1600 [facility] Last Admin: 05/08/19 16:07 Dose: 2.5 mg - Exam General: Alert, Oriented Lungs: Clear to Auscultation, Rub Cardiovascular: Irregular Rhythm, Tachycardia - Problem List & Annotations (1) Aspiration pneumonia due to food (regurgitated) SNOMED Code(s): 48083537 Code(s): J69.0 - PNEUMONITIS DUE TO INHALATION OF FOOD AND VOMIT Status: Acute Current Visit: No (2) Congestive heart failure (CHF) SNOMED Code(s): 30600237 Code(s): I50.9 - HEART FAILURE, UNSPECIFIED Status: Acute Current Visit: No (3) Essential tremor SNOMED Code(s): 788641455 Code(s): G25.0 - ESSENTIAL TREMOR Status: Acute Current Visit: No (4) Chronic atrial fibrillation SNOMED Code(s): 029998460 Code(s): I48.2 - CHRONIC ATRIAL FIBRILLATION * DO NOT USE * Status: Chronic Current Visit: No - Problem List Review Problem List Initiated/Reviewed/Updated: Yes - My Orders Last 24 Hours: My Active Orders 05/08/19 12:00 Magnesium [Magnesium] 200 mg PO DAILY@1200 05/09/19 08:15 Ondansetron [Zofran ODT] 4 mg PO Q6H PRN 05/09/19 16:00 Warfarin [Coumadin] 4 mg PO ONETIME ONE 05/10/19 16:00 Warfarin [Coumadin] 2.5 mg PO SuMoWeThFrSa@1600 05/11/19 14:59 INR,PT,PROTHROMBIN TIME [COAG] Q2D 05/11/19 16:00 Warfarin [Coumadin] 1.25 mg PO Tu@1600 05/13/19 14:59 INR,PT,PROTHROMBIN TIME [COAG] Q2D 05/15/19 14:59 INR,PT,PROTHROMBIN TIME [COAG] Q2D 05/17/19 14:59 INR,PT,PROTHROMBIN TIME [COAG] Q2D - Plan Plan:: 1. Her blood pressure now is a little bit more stable so will start to titrate up the metoprolol to try to get her pulse under 100.
[2019-05-09] MEDS: MAGNESIUM 200 MG PO SCH (11:43)
[2019-05-09] MEDS ORDERED: Warfarin 4 MG Tab PO ONE (16:00)
[2019-05-09] MEDS ORDERED: Metoprolol Tartrate 25 MG Tab PO SCH (21:00)
[2019-05-09] MEDS: Simvastatin 10 MG Tab PO SCH (21:13)
--- NOTE | 2019-05-10 08:40 | PCM.PN ---
- General Info Date of Service: 05/10/19 Admission Dx/Problem (Free Text): Patient states she has no issues today. Her [id number] called me last states that she is having nausea and having problems word finding. I talked her but she says every morning she said a little nausea but goes away. She denies dysuria, pyuria, hematuria, chest pain, shortness of breath. We did EKG, troponin which were negative and some labs. Urine is positive again. - Patient Data Vitals - Most Recent: Last Vital Signs Temp 98.3 F 05/09/19 08:00 Pulse 96 05/09/19 21:16 Resp 18 05/09/19 20:00 BP 104/64 05/09/19 21:16 Pulse Ox 92 L 05/10/19 00:00 Weight - Most Recent: 144 lb 4.8 oz Lab Results Last 24 Hours: Laboratory Results - last 24 hr 05/09/19 05/09/19 05/09/19 Range/Units 18:00 18:00 21:20 WBC 5.9 (4.5-12.0) X10-3/uL RBC 3.79 (3.23-5.20) x10(6)uL Hgb 10.8 L (11.5-15.5) g/dL Hct 34.2 (30.0-51.3) % MCV 90.2 (80-96) fL MCH 28.6 (27.7-33.6) pg MCHC 31.7 L (32.2-35.4) g/dL RDW 16.6 H (11.5-15.5) % Plt Count 281 (125-369) X10(3)uL MPV 7.9 (7.4-10.4) fL Neut % (Auto) 67.6 (46-82) % Lymph % (Auto) 18.5 (13-37) % [place] % (Auto) 10.5 (4-12) % Eos % (Auto) 3 (1.0-5.0) % Baso % (Auto) 0 (0-2) % Neut # (Auto) 4.0 (1.6-8.3) # Lymph # (Auto) 1.1 (0.6-5.0) # [place] # (Auto) 0.6 (0.0-1.3) # Eos # (Auto) 0.2 (0.0-0.8) # Baso # (Auto) 0.0 (0.0-0.2) # Troponin I < 0.017 L (<0.017-0.056) ng/mL Urine Color Yellow (YELLOW) Urine Appearance Cloudy (CLEAR) Urine pH 5.0 (5.0-6.5) Ur Specific [place] 1.020 (1.010-1.025) Urine Protein 30 H (NEGATIVE) mg/dL Urine Glucose (UA) Normal (NORMAL) mg/dL Urine Ketones Negative (NEGATIVE) mg/dL Urine Occult Blood Moderate H (NEGATIVE) Urine Nitrite Positive H (NEGATIVE) Urine Bilirubin Negative (NEGATIVE) Urine Urobilinogen Normal (NEGATIVE) mg/dL Ur Leukocyte Esterase Large H (NEGATIVE) Urine RBC 5-10 H (0-5) Urine WBC Semi-packed H (0-5) Ur Squamous Epith Cells Occasional (NS,R,O) Urine Bacteria Many H (NS) Med Orders - Current: Current Medications Albuterol (Ventolin Hfa) 0 gm INH Q4H PRN PRN Reason: Wheezing Albuterol/Ipratropium (Duoneb 3.0-0.5 Mg/3 Ml) 3 ml INH Q4H PRN PRN Reason: Shortness of Breath Alprazolam (Xanax) 0.5 mg PO TID [facility] Last Admin: 05/09/19 21:13 Dose: 0.5 mg Aspirin (Aspirin) 81 mg PO DAILY [facility] Last Admin: 05/09/19 10:15 Dose: 81 mg Escitalopram Oxalate (Lexapro) 10 mg PO DAILY [facility] Last Admin: 05/09/19 10:18 Dose: 10 mg Metoprolol Tartrate (Lopressor) 100 mg PO BID [facility] Symbicort 80-4.5 Mcg (Inhaler *Ptom) 2 puff INH BID [facility] Last Admin: 05/09/19 21:13 Dose: 2 puff Magnesium 200 Mg * (Ptom) 200 mg PO DAILY@1200 [facility] Last Admin: 05/09/19 11:43 Dose: 200 mg Ondansetron HCl (Zofran Odt) 4 mg PO Q6H PRN PRN Reason: Nausea/Vomiting Last Admin: 05/09/19 08:22 Dose: 4 mg Oxybutynin Chloride (Oxybutynin) 5 mg PO BID [facility] Last Admin: 05/09/19 21:14 Dose: 5 mg Potassium Chloride (Klor-Con M20) 20 meq PO DAILY [facility] Last Admin: 05/09/19 10:17 Dose: 20 meq Simvastatin (Zocor) 5 mg PO BEDTIME [facility] Last Admin: 05/09/19 21:13 Dose: 5 mg Trimethoprim/Sulfamethoxazole (Septra Ds) 1 tab PO BID [facility] Stop: 05/14/19 21:01 Warfarin Sodium (Coumadin) 1.25 mg PO Tu@1600 [facility] Warfarin Sodium (Coumadin Sliding Scale) 1 each PO ASDIRECTED [facility] Warfarin Sodium (Coumadin) 2.5 mg PO SuMoWeThFrSa@1600 [facility] Warfarin Sodium (Coumadin) 4 mg PO ONETIME ONE Stop: 05/09/19 16:01 Last Admin: 05/09/19 17:15 Dose: 4 mg Discontinued Medications Furosemide (Lasix) 10 mg PO DAILY [facility] Last Admin: 05/09/19 10:17 Dose: 10 mg Metoprolol Tartrate (Lopressor) 50 mg PO BID [facility] Last Admin: 05/09/19 10:17 Dose: 50 mg Metoprolol Tartrate (Lopressor) 75 mg PO BID [facility] Last Admin: 05/09/19 21:16 Dose: 75 mg Warfarin Sodium (Coumadin) 2.5 mg PO SuMoWeThFrSa@1600 [facility] Last Admin: 05/08/19 16:07 Dose: 2.5 mg - Exam General: Alert, Oriented, Cooperative Lungs: Clear to Auscultation, Normal Respiratory Effort Cardiovascular: Irregular Rhythm, Tachycardia, Murmurs Extremities: No Pedal Edema - Problem List & Annotations (1) Aspiration pneumonia due to food (regurgitated) SNOMED Code(s): 63290963 Code(s): J69.0 - PNEUMONITIS DUE TO INHALATION OF FOOD AND VOMIT Status: Acute Current Visit: No (2) Congestive heart failure (CHF) SNOMED Code(s): 53911412 Code(s): I50.9 - HEART FAILURE, UNSPECIFIED Status: Acute Current Visit: No (3) Essential tremor SNOMED Code(s): 046656605 Code(s): G25.0 - ESSENTIAL TREMOR Status: Acute Current Visit: No (4) Chronic atrial fibrillation SNOMED Code(s): 532058206 Code(s): I48.2 - CHRONIC ATRIAL FIBRILLATION * DO NOT USE * Status: Chronic Current Visit: No (5) UTI (urinary tract infection) SNOMED Code(s): 26961029 Code(s): N39.0 - URINARY TRACT INFECTION, SITE NOT SPECIFIED Status: Acute Current Visit: Yes - Problem List Review Problem List Initiated/Reviewed/Updated: Yes - My Orders Last 24 Hours: My Active Orders 05/09/19 08:15 Ondansetron [Zofran ODT] 4 mg PO Q6H PRN 05/09/19 16:00 Warfarin [Coumadin] 4 mg PO ONETIME ONE 05/09/19 17:51 EKG Documentation Completion [RC] ASDIRECTED EKG 12 Lead [EK] Routine 05/09/19 21:20 CULTURE URINE [RM] Routine 05/10/19 07:47 INR,PT,PROTHROMBIN TIME [COAG] Routine 05/10/19 09:00 Metoprolol Tartrate [Lopressor] 100 mg PO BID Sulfamethoxazole/Trimethoprim [Septra DS] 1 tab PO BID 05/10/19 16:00 Warfarin [Coumadin] 2.5 mg PO SuMoWeThFrSa@1600 05/11/19 14:59 INR,PT,PROTHROMBIN TIME [COAG] Q2D 05/11/19 16:00 Warfarin [Coumadin] 1.25 mg PO Tu@1600 05/13/19 14:59 INR,PT,PROTHROMBIN TIME [COAG] Q2D 05/15/19 14:59 INR,PT,PROTHROMBIN TIME [COAG] Q2D 05/17/19 14:59 INR,PT,PROTHROMBIN TIME [COAG] Q2D - Plan Plan:: 1. Going to increase the metoprolol to 100 mg by mouth twice a day starting this a.m. 2. Bactrim DS twice a day for 5 days. Wait for urinary culture. 3. I'm going to stop the Lasix and see if her legs swell. Her leg swelling could 've been from the diltiazem.
[2019-05-10] MEDS: Escitalopram 10 MG Tab PO SCH (09:35)
[2019-05-10] MEDS: Aspirin 81 MG Tab.Chew PO SCH (09:35)
[2019-05-10] MEDS: Potassium Chloride 20 MEQ Tab.ER PO SCH (09:35)
[2019-05-10] MEDS: Oxybutynin 5 MG Tab PO SCH ×2 (09:36→20:55)
[2019-05-10] MEDS: Sulfamethoxazole/Trimethoprim 800-160 MG Tab PO SCH ×2 (09:41→20:55)
[2019-05-10] MEDS: Metoprolol Tartrate 100 MG Tab PO SCH ×2 (09:41→20:56)
[2019-05-10] MEDS: ALPRAZolam 0.5 MG Tab PO SCH ×3 (09:41→20:55)
[2019-05-10] MEDS: MAGNESIUM 200 MG PO SCH (12:55)
[2019-05-10] MEDS ORDERED: Warfarin 2.5 MG Tab PO SCH (16:00)
[2019-05-10] MEDS ORDERED: Warfarin 5 MG Tab PO ONE (16:00)
[2019-05-10] MEDS: Simvastatin 10 MG Tab PO SCH (20:55)
[2019-05-11] MEDS: Aspirin 81 MG Tab.Chew PO SCH (08:51)
[2019-05-11] MEDS: Escitalopram 10 MG Tab PO SCH (08:53)
[2019-05-11] MEDS: Potassium Chloride 20 MEQ Tab.ER PO SCH (08:53)
[2019-05-11] MEDS: Sulfamethoxazole/Trimethoprim 800-160 MG Tab PO SCH (08:57)
[2019-05-11] MEDS: Oxybutynin 5 MG Tab PO SCH ×2 (08:57→20:14)
[2019-05-11] MEDS: Metoprolol Tartrate 100 MG Tab PO SCH ×2 (08:58→11:09)
[2019-05-11] MEDS: ALPRAZolam 0.5 MG Tab PO SCH ×3 (09:06→20:14)
[2019-05-11] MEDS ORDERED: Digoxin 250 MCG Tab PO ONE (09:16)
--- NOTE | 2019-05-11 09:19 | PCM.SN ---
- Free Text/Narrative Note: Patient is blood pressure is 90 systolically her heart race so remains 100. The trailer technician stopped her digoxin the couple years ago put on Cardizem with Lopressor. But her blood pressure does not tolerate it. Her heart rate remains above 100. So I'm going to again try digoxin. I decreased her Lopressor to 50 mg twice a day for 100 mg twice a day. Give her loading dose of by mouth digoxin 250 g and start tomorrow start 125 g a day. Dig level in the morning.
[2019-05-11] MEDS: Metoprolol Tartrate 50 MG Tab PO SCH ×2 (10:10→20:14)
[2019-05-11] MEDS: Ciprofloxacin 250 MG Tab PO SCH ×2 (10:11→20:14)
[2019-05-11] MEDS: Digoxin 125 MCG Tab PO SCH (10:11)
[2019-05-11] MEDS: MAGNESIUM 200 MG PO SCH (11:28)
[2019-05-11] MEDS ORDERED: Warfarin 2.5 MG Tab PO SCH (16:00)
[2019-05-11] MEDS ORDERED: Warfarin 4 MG Tab PO ONE (16:00)
[2019-05-11] MEDS: Simvastatin 10 MG Tab PO SCH (20:14)
[2019-05-12] MEDS: Aspirin 81 MG Tab.Chew PO SCH (08:19)
[2019-05-12] MEDS: Digoxin 125 MCG Tab PO SCH (08:20)
[2019-05-12] MEDS: Potassium Chloride 20 MEQ Tab.ER PO SCH (08:20)
[2019-05-12] MEDS: Ciprofloxacin 250 MG Tab PO SCH ×2 (08:20→20:22)
[2019-05-12] MEDS: Metoprolol Tartrate 50 MG Tab PO SCH ×2 (08:21→20:22)
[2019-05-12] MEDS: Oxybutynin 5 MG Tab PO SCH ×2 (08:21→20:22)
[2019-05-12] MEDS: Escitalopram 10 MG Tab PO SCH (08:21)
[2019-05-12] MEDS: ALPRAZolam 0.5 MG Tab PO SCH ×3 (08:37→20:22)
[2019-05-12] MEDS: MAGNESIUM 200 MG PO SCH (12:17)
[2019-05-12] MEDS ORDERED: Warfarin 2.5 MG Tab PO ONE (16:00)
[2019-05-12] MEDS: Simvastatin 10 MG Tab PO SCH (20:22)
[2019-05-13] MEDS ORDERED: Digoxin 250 MCG Tab PO ONE (07:01)
[2019-05-13] MEDS: Aspirin 81 MG Tab.Chew PO SCH (08:23)
[2019-05-13] MEDS: Oxybutynin 5 MG Tab PO SCH ×2 (08:24→20:18)
[2019-05-13] MEDS: Metoprolol Tartrate 50 MG Tab PO SCH ×2 (08:24→20:19)
[2019-05-13] MEDS: Potassium Chloride 20 MEQ Tab.ER PO SCH (08:24)
[2019-05-13] MEDS: Escitalopram 10 MG Tab PO SCH (08:24)
[2019-05-13] MEDS: Ciprofloxacin 250 MG Tab PO SCH ×2 (08:29→20:18)
[2019-05-13] MEDS: ALPRAZolam 0.5 MG Tab PO SCH ×3 (08:30→20:18)
[2019-05-13] MEDS: MAGNESIUM 200 MG PO SCH (12:17)
[2019-05-13] MEDS ORDERED: Warfarin 2.5 MG Tab PO ONE (16:00)
[2019-05-13] MEDS: Simvastatin 10 MG Tab PO SCH (20:18)
[2019-05-14] MEDS: Potassium Chloride 20 MEQ Tab.ER PO SCH (09:28)
[2019-05-14] MEDS: Aspirin 81 MG Tab.Chew PO SCH (09:28)
[2019-05-14] MEDS: Metoprolol Tartrate 50 MG Tab PO SCH ×2 (09:29→20:15)
[2019-05-14] MEDS: Escitalopram 10 MG Tab PO SCH (09:29)
[2019-05-14] MEDS: Digoxin 125 MCG Tab PO SCH (09:29)
[2019-05-14] MEDS: Oxybutynin 5 MG Tab PO SCH ×2 (09:30→20:15)
[2019-05-14] MEDS: ALPRAZolam 0.5 MG Tab PO SCH ×3 (09:33→20:19)
[2019-05-14] MEDS: MAGNESIUM 200 MG PO SCH (14:43)
[2019-05-14] MEDS: Warfarin 2.5 MG Tab PO SCH (16:41)
[2019-05-14] MEDS: Simvastatin 10 MG Tab PO SCH (20:15)
[2019-05-15] MEDS: Potassium Chloride 20 MEQ Tab.ER PO SCH (09:24)
[2019-05-15] MEDS: Escitalopram 10 MG Tab PO SCH (09:24)
[2019-05-15] MEDS: Metoprolol Tartrate 50 MG Tab PO SCH ×2 (09:25→20:55)
[2019-05-15] MEDS: Digoxin 125 MCG Tab PO SCH (09:25)
[2019-05-15] MEDS: Aspirin 81 MG Tab.Chew PO SCH (09:25)
[2019-05-15] MEDS: Oxybutynin 5 MG Tab PO SCH ×2 (09:28→20:55)
[2019-05-15] MEDS: ALPRAZolam 0.5 MG Tab PO SCH ×3 (09:32→20:56)
[2019-05-15] MEDS: MAGNESIUM 200 MG PO SCH (12:50)
[2019-05-15] MEDS: Warfarin 2.5 MG Tab PO SCH (17:08)
[2019-05-15] MEDS: Simvastatin 10 MG Tab PO SCH (20:56)
[2019-05-16] MEDS: ALPRAZolam 0.5 MG Tab PO SCH ×3 (09:10→21:24)
[2019-05-16] MEDS: Metoprolol Tartrate 50 MG Tab PO SCH ×2 (09:10→21:16)
[2019-05-16] MEDS: Potassium Chloride 20 MEQ Tab.ER PO SCH (09:10)
[2019-05-16] MEDS: Oxybutynin 5 MG Tab PO SCH ×2 (09:12→21:16)
[2019-05-16] MEDS: Escitalopram 10 MG Tab PO SCH (09:12)
[2019-05-16] MEDS: Aspirin 81 MG Tab.Chew PO SCH (09:13)
[2019-05-16] MEDS: Digoxin 125 MCG Tab PO SCH (09:13)
[2019-05-16] MEDS: MAGNESIUM 200 MG PO SCH (12:44)
[2019-05-16] MEDS ORDERED: Warfarin 4 MG Tab PO ONE (16:00)
[2019-05-16] MEDS: Simvastatin 10 MG Tab PO SCH (21:15)
[2019-05-17] MEDS: Potassium Chloride 20 MEQ Tab.ER PO SCH (08:29)
[2019-05-17] MEDS: Oxybutynin 5 MG Tab PO SCH ×2 (08:30→21:07)
[2019-05-17] MEDS: Digoxin 125 MCG Tab PO SCH (08:30)
[2019-05-17] MEDS: Metoprolol Tartrate 50 MG Tab PO SCH ×2 (08:30→21:08)
[2019-05-17] MEDS: Aspirin 81 MG Tab.Chew PO SCH (08:31)
[2019-05-17] MEDS: Escitalopram 10 MG Tab PO SCH (08:31)
[2019-05-17] MEDS: ALPRAZolam 0.5 MG Tab PO SCH ×3 (08:31→21:15)
[2019-05-17] MEDS: MAGNESIUM 200 MG PO SCH (12:05)
[2019-05-17] MEDS ORDERED: Warfarin 5 MG Tab PO ONE (16:00)
[2019-05-17] MEDS: Simvastatin 10 MG Tab PO SCH (21:07)
[2019-05-18] MEDS: Escitalopram 10 MG Tab PO SCH (08:31)
[2019-05-18] MEDS: Oxybutynin 5 MG Tab PO SCH ×2 (08:31→20:37)
[2019-05-18] MEDS: ALPRAZolam 0.5 MG Tab PO SCH ×3 (08:31→20:48)
[2019-05-18] MEDS: Potassium Chloride 20 MEQ Tab.ER PO SCH (08:31)
[2019-05-18] MEDS: Aspirin 81 MG Tab.Chew PO SCH (08:31)
[2019-05-18] MEDS: Digoxin 125 MCG Tab PO SCH (08:32)
[2019-05-18] MEDS: Metoprolol Tartrate 50 MG Tab PO SCH ×2 (08:32→20:37)
[2019-05-18] MEDS: MAGNESIUM 200 MG PO SCH (11:53)
[2019-05-18] MEDS ORDERED: Warfarin 5 MG Tab PO ONE (16:00)
[2019-05-18] MEDS ORDERED: Aluminum Hydroxide/Magnesium Hydroxide Susp 30 ML Cup PO PRN (18:42)
[2019-05-18] MEDS: Ondansetron 4 MG Tab.DIS PO PRN (19:05)
[2019-05-18] MEDS: Simvastatin 10 MG Tab PO SCH (20:36)
[2019-05-19] MEDS: Potassium Chloride 20 MEQ Tab.ER PO SCH (08:33)
[2019-05-19] MEDS: Aspirin 81 MG Tab.Chew PO SCH (08:33)
[2019-05-19] MEDS: Digoxin 125 MCG Tab PO SCH (08:34)
[2019-05-19] MEDS: Oxybutynin 5 MG Tab PO SCH (08:34)
[2019-05-19] MEDS: Metoprolol Tartrate 50 MG Tab PO SCH (08:34)
[2019-05-19] MEDS: Escitalopram 10 MG Tab PO SCH (08:34)
[2019-05-19] MEDS: ALPRAZolam 0.5 MG Tab PO SCH (08:45)
--- NOTE | 2019-05-19 13:32 | DISCH ---
DISCHARGE DATE: 05/19/2019 REASON FOR ADMISSION: 1. Generalized weakness. 2. Atrial fibrillation. 3. COPD. 4. Mitral valve replacement. 5. Coronary artery disease. 6. History of CHF. 7. Essential tremor. 8. Anxiety. DISCHARGE DIAGNOSES: 1. Generalized weakness. 2. Atrial fibrillation. 3. Chronic obstructive pulmonary disease. 4. Mitral valve replacement. 5. Coronary artery disease. 6. History of CHF. 7. Essential tremor. 8. Anxiety. BRIEF HISTORY AND HOSPITAL COURSE: Kati Sharpe is a 79-year-old female who was admitted to swing bed after she had spent some time in the hospital for the above diagnosis. She had come from the clinic after doing poorly and unable to sustain herself independently in the house. She was started on digoxin to help her heart rate and she was switched to swing bed for rehab and strengthening. She has done pretty good and is ready to go to [facility] today with home health. She needs help with continuation of physical therapy, nursing and occupational therapy. She needs oxygen at 1 liter per nasal cannula, continuous. Followup with primary care provider in one week. HOME MEDICATIONS: 1. She will go home on digoxin 125 mcg a day. 2. She will go home on metoprolol 50 mg b.i.d. (in place of previous 300 mg a day). 3. She will also go home on Lexapro 10 mg a day, oxybutynin 5 mg b.i.d., alprazolam 0.5 mg t.i.d., albuterol, and Symbicort. 4. She also currently on Coumadin as dosed by pharmacy and will need an INR check on Friday. 5. Please note that she was previously on Cardizem which was discontinued as well. I spent more than 35 minutes in the discharge summary. /[id number] KIRSTY/ROSANA SPENCER
== END 2019-05-19 11:00 | disposition home health service (06) | DRG 947 ==
LOC: FB.MS 12:30
PROVIDERS: ADMIT Family Medicine; ATTEND Family Medicine
DX: R53.1 Weakness (principal); J69.0 Pneumonitis due to inhalation of food and vomit; I48.20 Chronic atrial fibrillation, unspecified; J44.0 Chronic obstructive pulmonary disease with (acute) lower respiratory infection; N39.0 Urinary tract infection, site not specified; I48.91 Unspecified atrial fibrillation; Z51.5 Encounter for palliative care; I25.10 Atherosclerotic heart disease of native coronary artery without angina pectoris; I50.9 Heart failure, unspecified; F41.9 Anxiety disorder, unspecified; R25.1 Tremor, unspecified; I11.0 Hypertensive heart disease with heart failure; E78.00 Pure hypercholesterolemia, unspecified; Z79.82 Long term (current) use of aspirin; Z79.01 Long term (current) use of anticoagulants; Z79.899 Other long term (current) drug therapy; Z98.49 Cataract extraction status, unspecified eye; Z90.49 Acquired absence of other specified parts of digestive tract; Z95.2 Presence of prosthetic heart valve
CPT/HCPCS: 36415; 80162; 81001; 84484; 85025; 85610; 87086; 87088; 87186; 93005; 94760; 97110-GO; 97110-GP; 97530-GO; 97530-GP; 97535-GO; A9270-GY

== ENCOUNTER 2019-06-01 20:19 | Emergency (ER) | payer MEDICARE ==
--- NOTE | 2019-06-01 20:26 | EDM.PDOC ---
ED HPI GENERAL MEDICAL PROBLEM - General Time Seen by Provider: 06/01/19 20:26 Source of Information: Reports: Patient History Limitations: Reports: No Limitations - History of Present Illness INITIAL COMMENTS - FREE TEXT/NARRATIVE: 79-year-old female who was discharged from swing bed status on 05/12/2019 to home and was transitioned directly from here to [facility]. According to the patient's [id number] who is the patient's primary caregiver, the patient has not really been doing well since she has been discharged. She has not been eating or drinking that well. She has not been doing physical therapy that well and according to the [id number] she seems to generally been getting weaker over time. On 05/25/2019, she had vomiting and diarrhea and this lasted for 2 days. Following this, she did seem to improve and has been able to take liquids and eat some but all he small amounts. Yesterday, the patient tripped over her tubing and fell in her room. This was unwitnessed but she did press her alert button and staff came to get her up and she seemed to be okay. There was a scrape over her left forehead and also some bruising to her right periorbital area from this fall. Today, she did go to a music concert at [facility] but following this she pretty much stayed in her chair and slept for the rest of the day and did not really eat or drink anything for the rest of the day. The [id number] had the staff at [facility] check on the patient and check her vital signs and they found it difficult to find her pulse , she seemed rather pale and she had decreased responsiveness. The daughter-in- law came to see the patient and she brought her here for evaluation. She was unable to stand and had to be lifted out of her chair into the wheelchair and then had to be lifted out of the wheelchair into the car to be brought here. There have been no reports of fever. She has had no vomiting or diarrhea since last week. No increased need for oxygen (the patient has been on 1 L/m via nasal cannula of oxygen discharge on 05/20/2019). The patient is awake and alert and she is able to converse with me. She is oriented to person, place and time. She also seems to be oriented to situation mostly. She was a little confused as to why she was here but to this pretty quickly when I talked to her about it. She denies any pain. She would rate her pain as a 0/10. There are no other associated signs or symptoms. There are no other modifying factors. Onset: Other (2 days, although she has had poor acclamation to [facility] and the [id number] feels that she has had a general decline since her discharge from the hospital.) Duration: Getting Worse Location: Reports: Other (No pain reported) Quality: Reports: Other (Not applicable) Severity: Moderate (Weakness) Improves with: Reports: None Worsens with: Reports: None Context: Reports: Other (As above) Associated Symptoms: Reports: No Other Symptoms (Except as above) Treatments APPLIANCE COUNSELOR: Reports: Other (see below) (Nothing) - Related Data Allergies Allergy/AdvReac Type Severity Reaction Status Date / Time meperidine HCl [From Demerol] Allergy Severe Tachycardia Verified 06/01/19 21:33 nystatin Allergy Severe Rash Verified 06/01/19 21:33 propranolol HCl Allergy Tachycardia Verified 06/01/19 21:33 [From Inderal LA] Sulfa (Sulfonamide Allergy flu like Verified 06/01/19 21:33 Antibiotics) symptoms Home Meds: Home Meds Simvastatin 5 mg PO BEDTIME 10/13/13 [History] Albuterol Sulfate [Proair Hfa] 2 puff IH Q4H PRN 03/23/17 [History] Aspirin 81 mg PO DAILY 03/23/17 [History] Warfarin [Coumadin] 1.25 mg PO SUWETHSA 03/23/17 [History] ALPRAZolam [Xanax] 0.5 mg PO TID 03/27/17 [History] Budesonide/Formoterol Fumarate [Symbicort 80-4.5 MCG] 2 puff INH BID 08/10/18 [ History] Escitalopram [Lexapro] 10 mg PO DAILY 08/10/18 [History] Oxybutynin 5 mg PO BID #60 tablet 09/11/18 [Rx] Albuterol/Ipratropium [DuoNeb 3.0-0.5 MG/3 ML] 3 ml IH Q4H PRN 05/04/19 [History ] Magnesium 200 mg PO DAILY@1200 11/26/19 [History] Digoxin 125 mcg PO DAILY #30 tablet 05/19/19 [Rx] Metoprolol Tartrate [Lopressor] 50 mg PO BID #60 tablet 05/19/19 [Rx] Past Medical History HEENT History: Reports: Cataract, Other (See Below) Other HEENT History: DYSPHAGIA Cardiovascular History: Reports: Afib, Arrhythmia, Blood Clots/VTE/DVT, CAD, High Cholesterol, Hypertension, Other (See Below) Other Cardiovascular History: MITRAL STENOSIS Respiratory History: Reports: Asthma, COPD Musculoskeletal History: Reports: Fracture Neurological History: Reports: Other (See Below) Other Neuro History: tremors; TORTICOLLIS Psychiatric History: Reports: Anxiety, Depression Hematologic History: Reports: Anticoagulation Therapy (On chronic anticoagulation with Coumadin) Oncologic (Cancer) History: Reports: Other (See Below) Other Oncologic History: 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 - Infectious Disease History Other Infectious Disease History: pt doesn't remember - Past Surgical History HEENT Surgical History: Reports: Cataract Surgery, Other (See Below) Other HEENT Surgeries/Procedures: surgery right ear Cardiovascular Surgical History: Reports: Coronary Artery Bypass, 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) GI Surgical History: Reports: Appendectomy, Cholecystectomy, Other (See Below) Other GI Surgeries/Procedures: Had feeding tube for 1 1/2 years after bypass surgery in 2012 due to inability to swallow Female Surgical History: Reports: Hysterectomy Musculoskeletal Surgical History: Reports: ORIF Social & Family History - Tobacco Use Smoking Status *Q: Never Smoker Second Hand Smoke Exposure: Yes - Caffeine Use Caffeine Use: Reports: None - Alcohol Use Alcohol Use History: No - Living Situation & Occupation Living situation: Reports: Occupation: Retired ED ROS GENERAL - Review of Systems Review Of Systems: See Below Constitutional: Reports: No Symptoms HEENT: Reports: Other (Dry mouth) Respiratory: Reports: No Symptoms (Patient is on oxygen at 1 L/m via nasal cannula's recent discharge) Cardiovascular: Reports: No Symptoms GI/Abdominal: Reports: No Symptoms : Reports: No Symptoms Musculoskeletal: Reports: No Symptoms, Other (Swelling in both lower extremities that is chronic) Skin: Reports: Wound (Abrasion on her left forehead from recent fall) Neurological: Reports: No Symptoms Hematologic/Lymphatic: Reports: Easy Bruising, Other (On Coumadin) Immunologic: Reports: No Symptoms ED EXAM, GENERAL - Physical Exam Exam: See Below Exam Limited By: No Limitations General Appearance: Alert, No Apparent Distress, Thin Eye Exam: Bilateral Eye: EOMI, Normal Inspection Ears: Normal External Exam, Hearing Grossly Normal Ear Exam: Bilateral Ear: Auricle Normal Nose: Normal Inspection, Normal Mucosa, No Blood Throat/Mouth: Normal Voice, No Airway Compromise, Other (Dry mucous membranes and dry lips) Head: Normocephalic, Facial Swelling (And ecchymosis in right periorbital area. Abrasion over left forehead area. No crepitus. No depression.), Other Neck: Normal Inspection, Supple, Non-Tender Respiratory/Chest: No Respiratory Distress, Lungs Clear, Normal Breath Sounds, No Accessory Muscle Use, Chest Non-Tender Cardiovascular: Normal Peripheral Pulses, No JVD, No Murmur, Irregularly Irregular Peripheral Pulses: 2+: Radial (L), Radial (R) GI/Abdominal: Normal Bowel Sounds, Soft, Non-Tender, No Mass Back Exam: Normal Inspection, Full Range of Motion Extremities: Normal Range of Motion, Normal Capillary Refill, Pedal Edema Neurological: Alert, Oriented, CN II-XII Intact, Normal Cognition, No Motor/ Sensory Deficits Psychiatric: Normal Affect Skin Exam: Warm, Dry, Intact, Normal Color, No Rash EKG INTERPRETATION EKG Date: 06/01/19 Time: 20:31 Rhythm: A-Fib (With controlled rate and frequent PVCs) Rate (Beats/Min): 94 [place]: Normal P-Wave: Absent QRS: Normal ST-T: Other (Diffuse nonspecific ST-T changes) QT: Prolonged (QTc) Comparison: Change From Previous EKG (Since EKG performed on 05/09/2019, PVCs are new and diffuse ST-T changes are new as well.) Course - Vital Signs Last Recorded V/S: Last Vital Signs Temp 36.2 C 06/01/19 20:19 Pulse 42 L 06/01/19 20:19 Resp 18 06/01/19 20:19 BP 130/53 L 06/01/19 20:19 Pulse Ox 1 L 06/01/19 20:19 - Orders/Labs/Meds Orders: Active Orders 24 hr Category Date Time Status EKG Documentation Completion [RC] ASDIRECTED Care 06/01/19 21:05 Active Cervical Spine wo Cont [CT] Stat Exams 06/01/19 21:06 Taken Chest 1V Frontal [CR] Stat Exams 06/01/19 22:21 Taken Head wo Cont [CT] Stat Exams 06/01/19 21:02 Taken CULTURE BLOOD [BC] Urgent Lab 06/01/19 22:52 Received CULTURE BLOOD [BC] Urgent Lab 06/01/19 23:00 Received UA W/MICROSCOPIC [URIN] Stat Lab 06/01/19 21:02 Ordered Sodium Chloride 0.9% [Normal Saline] 1,000 ml Med 06/01/19 21:15 Stop Req IV ASDIRECTED Sodium Chloride 0.9% [Normal Saline] 1,000 ml Med 06/02/19 00:15 Ordered IV ASDIRECTED Blood Culture x2 Reflex Set [OM.PC] Urgent Oth 06/01/19 22:29 Ordered EKG 12 Lead [EK] Routine Ther 06/01/19 21:02 Ordered Medication Orders Sodium Chloride (Normal Saline) 1,000 mls @ 30 mls/hr IV ASDIRECTED [facility] Labs: Laboratory Tests 06/01/19 06/01/19 06/01/19 Range/Units 21:25 21:25 21:25 WBC 11.1 (4.5-12.0) X10-3/uL RBC 3.99 (3.23-5.20) x10(6)uL Hgb 10.7 L (11.5-15.5) g/dL Hct 35.5 (30.0-51.3) % MCV 88.9 (80-96) fL MCH 26.8 L (27.7-33.6) pg MCHC 30.1 L (32.2-35.4) g/dL RDW 17.2 H (11.5-15.5) % Plt Count 262 (125-369) X10(3)uL MPV 8.9 (7.4-10.4) fL Neut % (Auto) 74.2 (46-82) % Lymph % (Auto) 14.5 (13-37) % [place] % (Auto) 10.4 (4-12) % Eos % (Auto) 1 (1.0-5.0) % Baso % (Auto) 0 (0-2) % Neut # (Auto) 8.2 (1.6-8.3) # Lymph # (Auto) 1.6 (0.6-5.0) # [place] # (Auto) 1.2 (0.0-1.3) # Eos # (Auto) 0.1 (0.0-0.8) # Baso # (Auto) 0.0 (0.0-0.2) # PT 16.9 H (8.7-11.1) INR 1.75 H (0.89-1.13) POC VBG pH (7.31-7.41) POC VBG pCO2 (41-51) mmHG POC VBG HCO3 (23-28) mmol/L POC VBG Total CO2 (24-29) mmol/L POC VBG Base Excess (-2-3) mmol/L Sodium 138 (135-145) mmol/L Potassium 3.6 (3.5-5.3) mmol/L Chloride 100 D (100-110) mmol/L Carbon Dioxide 27 (21-32) mmol/L BUN 32 H D (7-18) mg/dL Creatinine 1.2 H (0.55-1.02) mg/dL Est Cr Clr Drug Dosing TNP Estimated GFR (MDRD) 44 L (>60) BUN/Creatinine Ratio 26.7 H (9-20) Glucose 102 (80-116) mg/dL Calcium 8.6 (8.6-10.2) mg/dL Magnesium 1.8 (1.8-2.5) mg/dL Total Bilirubin 1.0 (0.1-1.3) mg/dL AST 91 H D (5-25) IU/L ALT 82 H D (12-36) U/L Alkaline Phosphatase 80 (56-112) IU/L Troponin I (<0.017-0.056) ng/mL C-Reactive Protein (0.5-0.9) mg/dL NT-Pro-B Natriuret Pep (<=450) pg/mL Total Protein 6.8 (6.0-8.0) g/dL Albumin 2.6 L (3.2-4.6) g/dL Globulin 4.2 g/dL Albumin/Globulin Ratio 0.6 Digoxin (<0.2) ng/mL 06/01/19 06/01/19 06/01/19 Range/Units 21:25 21:35 22:52 WBC (4.5-12.0) X10-3/uL RBC (3.23-5.20) x10(6)uL Hgb (11.5-15.5) g/dL Hct (30.0-51.3) % MCV (80-96) fL MCH (27.7-33.6) pg MCHC (32.2-35.4) g/dL RDW (11.5-15.5) % Plt Count (125-369) X10(3)uL MPV (7.4-10.4) fL Neut % (Auto) (46-82) % Lymph % (Auto) (13-37) % [place] % (Auto) (4-12) % Eos % (Auto) (1.0-5.0) % Baso % (Auto) (0-2) % Neut # (Auto) (1.6-8.3) # Lymph # (Auto) (0.6-5.0) # [place] # (Auto) (0.0-1.3) # Eos # (Auto) (0.0-0.8) # Baso # (Auto) (0.0-0.2) # PT (8.7-11.1) INR (0.89-1.13) POC VBG pH (7.31-7.41) POC VBG pCO2 (41-51) mmHG POC VBG HCO3 (23-28) mmol/L POC VBG Total CO2 (24-29) mmol/L POC VBG Base Excess (-2-3) mmol/L Sodium (135-145) mmol/L Potassium (3.5-5.3) mmol/L Chloride (100-110) mmol/L Carbon Dioxide (21-32) mmol/L BUN (7-18) mg/dL Creatinine (0.55-1.02) mg/dL Est Cr Clr Drug Dosing Estimated GFR (MDRD) (>60) BUN/Creatinine Ratio (9-20) Glucose (80-116) mg/dL Calcium (8.6-10.2) mg/dL Magnesium (1.8-2.5) mg/dL Total Bilirubin (0.1-1.3) mg/dL AST (5-25) IU/L ALT (12-36) U/L Alkaline Phosphatase (56-112) IU/L Troponin I 0.047 (<0.017-0.056) ng/mL C-Reactive Protein 4.1 H* (0.5-0.9) mg/dL NT-Pro-B Natriuret Pep [id number] H* (<=450) pg/mL Total Protein (6.0-8.0) g/dL Albumin (3.2-4.6) g/dL Globulin g/dL Albumin/Globulin Ratio Digoxin 2.7 H* (<0.2) ng/mL 06/01/19 Range/Units 22:52 WBC (4.5-12.0) X10-3/uL RBC (3.23-5.20) x10(6)uL Hgb (11.5-15.5) g/dL Hct (30.0-51.3) % MCV (80-96) fL MCH (27.7-33.6) pg MCHC (32.2-35.4) g/dL RDW (11.5-15.5) % Plt Count (125-369) X10(3)uL MPV (7.4-10.4) fL Neut % (Auto) (46-82) % Lymph % (Auto) (13-37) % [place] % (Auto) (4-12) % Eos % (Auto) (1.0-5.0) % Baso % (Auto) (0-2) % Neut # (Auto) (1.6-8.3) # Lymph # (Auto) (0.6-5.0) # [place] # (Auto) (0.0-1.3) # Eos # (Auto) (0.0-0.8) # Baso # (Auto) (0.0-0.2) # PT (8.7-11.1) INR (0.89-1.13) POC VBG pH 7.45 H (7.31-7.41) POC VBG pCO2 33.4 L (41-51) mmHG POC VBG HCO3 23.1 (23-28) mmol/L POC VBG Total CO2 24 (24-29) mmol/L POC VBG Base Excess -1 (-2-3) mmol/L Sodium (135-145) mmol/L Potassium (3.5-5.3) mmol/L Chloride (100-110) mmol/L Carbon Dioxide (21-32) mmol/L BUN (7-18) mg/dL Creatinine (0.55-1.02) mg/dL Est Cr Clr Drug Dosing Estimated GFR (MDRD) (>60) BUN/Creatinine Ratio (9-20) Glucose (80-116) mg/dL Calcium (8.6-10.2) mg/dL Magnesium (1.8-2.5) mg/dL Total Bilirubin (0.1-1.3) mg/dL AST (5-25) IU/L ALT (12-36) U/L Alkaline Phosphatase (56-112) IU/L Troponin I (<0.017-0.056) ng/mL C-Reactive Protein (0.5-0.9) mg/dL NT-Pro-B Natriuret Pep (<=450) pg/mL Total Protein (6.0-8.0) g/dL Albumin (3.2-4.6) g/dL Globulin g/dL Albumin/Globulin Ratio Digoxin (<0.2) ng/mL Meds: Medications Generic Name Dose Route Start Last Admin Trade Name Freq PRN Reason Stop Dose Admin Sodium Chloride 1,000 mls @ 30 mls/hr 06/02/19 00:15 Normal Saline IV ASDIRECTED LELAND Discontinued Medications Generic Name Dose Route Start Last Admin Trade Name Freq PRN Reason Stop Dose Admin Sodium Chloride 1,000 mls @ 999 mls/hr 06/01/19 21:15 06/01/19 22:00 Normal Saline IV 06/02/19 00:02 125 mls/hr ASDIRECTED LELAND Infusion - Radiology Interpretation Free Text/Narrative:: Chest x-ray shows bilateral infiltrates which appear to be stable from chest x- ray on 05/04/2019 and the increase in interstitial since consistent with worsening CHF. CT scan of head shows no acute intracranial abnormality per the radiologist She scan of cervical spine shows no fracture per the radiologist. - Re-Assessments/Exams Free Text/Narrative Re-Assessment/Exam: 06/01/19 23:15: Patient presented with rapidly progressive weakness over the past 2 days with lethargy and poor by mouth intake. She appeared to be somewhat dehydrated initially but did have some edema in her legs that was worse than before and a chest x-ray shows increased pulmonary vascular markings which is concerning for worsening CHF. She also has an EKG which shows atrial fibrillation with multiple PVCs. She has a palpable pulse of only in the 40s despite being in the 90s on her rhythm. She also has worsening renal insufficiency. The CTs of her head and cervical spine were unremarkable. Her EKG is concerning for sick sinus type problem. This may be related to the digoxin that she is on and also to the metoprolol but it could also mean that she may need a pacemaker. I discussed all of this with the patient's who is the power of county attorney. I discussed admitting the patient here with a close monitoring and observation with holding of the medication and seeing if she improved versus transferring the patient to [facility] in [place]. We would not immediately be able to do evaluation the patient's heart with echocardiogram and cardiology would not be readily available here. The patient's daughter-in- law who is power of county attorney would want the patient transferred to [facility] in [place] where cardiology and cardiology specially services as well as echocardiogram would be available now. Therefore she has asked that I call and discussed the patient's case with the doctors in [facility] in [place]. 06/01/19 23:35: I discussed the patient's case with Dr. Chu, hospitalist at [facility], and he has agreed to accept the patient transfer. At this point I got the digoxin back and it did show a slightly elevated digoxin at 2.7. For now we will just continue to closely monitor the patient. The patient will be transferred via ambulance to [facility] for direct admission. I discussed this with the patient's [id number] and she is in agreement with this plan. Departure - Departure Time of Disposition: 00:15 Disposition: DC/Tfer to Acute Hospital 02 Condition: Fair (Guarded) Clinical Impression: Sick sinus syndrome, Rapidly progressive weakness CHF (congestive heart failure) Qualifiers: Heart failure type: unspecified Heart failure chronicity: acute on chronic Qualified Code(s): I50.9 - Heart failure, unspecified Digoxin toxicity Qualifiers: Encounter type: initial encounter Injury intent: accidental or unintentional Qualified Code(s): T46.0X1A - Poisoning by cardiac-stimulant glycosides and drugs of similar action, accidental (unintentional), initial encounter - Discharge Information Sepsis Event Note - Focused Exam Vital Signs: Vital Signs Temp Pulse Resp BP Pulse Ox 06/01/19 20:19 36.2 C 42 L 18 130/53 L 1 L Date Exam was Performed: 06/02/19 Time Exam was Performed: 00:03 - My Orders Last 24 Hours: My Active Orders 06/01/19 21:02 Head wo Cont [CT] Stat UA W/MICROSCOPIC [URIN] Stat EKG 12 Lead [EK] Routine 06/01/19 21:05 EKG Documentation Completion [RC] ASDIRECTED 06/01/19 21:06 Cervical Spine wo Cont [CT] Stat 06/01/19 21:15 Sodium Chloride 0.9% [Normal Saline] 1,000 ml IV ASDIRECTED 06/01/19 22:21 Chest 1V Frontal [CR] Stat 06/01/19 22:29 Blood Culture x2 Reflex Set [OM.PC] Urgent 06/01/19 22:52 CULTURE BLOOD [BC] Urgent 06/01/19 23:00 CULTURE BLOOD [BC] Urgent 06/02/19 00:15 Sodium Chloride 0.9% [Normal Saline] 1,000 ml IV ASDIRECTED - Assessment/Plan Last 24 Hours: My Active Orders 06/01/19 21:02 Head wo Cont [CT] Stat UA W/MICROSCOPIC [URIN] Stat EKG 12 Lead [EK] Routine 06/01/19 21:05 EKG Documentation Completion [RC] ASDIRECTED 06/01/19 21:06 Cervical Spine wo Cont [CT] Stat 06/01/19 21:15 Sodium Chloride 0.9% [Normal Saline] 1,000 ml IV ASDIRECTED 06/01/19 22:21 Chest 1V Frontal [CR] Stat 06/01/19 22:29 Blood Culture x2 Reflex Set [OM.PC] Urgent 06/01/19 22:52 CULTURE BLOOD [BC] Urgent 06/01/19 23:00 CULTURE BLOOD [BC] Urgent 06/02/19 00:15 Sodium Chloride 0.9% [Normal Saline] 1,000 ml IV ASDIRECTED
[2019-06-01] MEDS ORDERED: Sodium Chloride 0.9% 1,000 ML IV SCH (21:15)
[2019-06-02] MEDS ORDERED: Sodium Chloride 0.9% 1,000 ML IV SCH (00:15)
== END 2019-06-02 00:45 ==
LOC: FB.ED 20:19
DX: T46.0X1A Poisoning by cardiac-stimulant glycosides and drugs of similar action, accidental (unintentional), initial encounter (principal); I11.0 Hypertensive heart disease with heart failure; I50.9 Heart failure, unspecified; I49.5 Sick sinus syndrome; F41.9 Anxiety disorder, unspecified; I48.91 Unspecified atrial fibrillation; I25.10 Atherosclerotic heart disease of native coronary artery without angina pectoris; J44.9 Chronic obstructive pulmonary disease, unspecified; Z98.49 Cataract extraction status, unspecified eye; Z95.1 Presence of aortocoronary bypass graft; Z95.4 Presence of other heart-valve replacement; Z90.49 Acquired absence of other specified parts of digestive tract; Z90.710 Acquired absence of both cervix and uterus; Z77.22 Contact with and (suspected) exposure to environmental tobacco smoke (acute) (chronic); Z79.82 Long term (current) use of aspirin; Z88.2 Allergy status to sulfonamides; Z88.8 Allergy status to other drugs, medicaments and biological substances; Z79.01 Long term (current) use of anticoagulants
CPT/HCPCS: 36415; 70450; 71045; 72125; 80053; 80162; 82803; 83735; 83880; 84484; 85025; 85610; 86140; 87040; 93005; 93010; 96360; 96361; 99285; 99285-25; J7030